=== PATIENT | male | born 1990 | race Caucasian/White ===

== ENCOUNTER 2022-09-01 19:21 | Inpatient (IN) ==
[2022-09-01] MEDS ORDERED: SODIUM CHLORIDE 0.9% 1000ML 1,000 ML IV STA (19:36)
[2022-09-01] MEDS ORDERED: PIPERACILLIN/TAZOBACTAM 4.5 GM/120 ML BAG IV STA (19:36)
[2022-09-01] MEDS ORDERED: ALBUT/IPRATROP 3MG/0.5MG NEB 3 ML VIAL NEB STA (19:39)
[2022-09-01 19:57] LABS: iSTAT Ionized Calcium 1.12 mmol/l (1.12-1.32)
[2022-09-01 20:10] LABS: Basophils # (auto) 0.08 K/uL (0-0.2); Basophils % (auto) 0.6 %; Eosinophils # (auto) 1.36 K/uL (0-0.50); Hematocrit (blood only) 44.6 % (42.0-52.0); Hemoglobin 15.4 g/dl (14.0-18.0); Immature Granulocytes # (auto) 0.04 K/uL (0.01-0.20); Immature Granulocytes % (auto) 0.3 %; Lymphocytes # (auto) 1.71 K/uL (1.2-3.4); Lymphocytes % (auto) 13.8 %; Mean Corpuscular Hemoglobin 31.1 pg (25.0-34.0); Mean Corpuscular Hgb Conc 34.5 g/dL (32.0-36.0); Mean Corpuscular Volume 90.1 fL (80.0-100.0); Monocytes # (auto) 0.83 K/uL (0.11-0.59); Monocytes % (auto) 6.7 %; Neutrophils # (auto) 8.36 K/uL (1.40-6.50); Neutrophils % (auto) 67.6 %; Platelet Count 228 K/uL (130-400); RDW Coefficient of Variation 13.2 % (11.5-14.5); Red Blood Count 4.95 M/uL (4.70-6.10); White Blood Count 12.38 K/ul (4.8-10.8)
--- NOTE | 2022-09-01 20:10 | Emergency Department Note ---
Impression & Plan Pneumonitis, HIV (human immunodeficiency virus infection), Hypoxia ED Provider Note Provider: Armaan Castillo MD DATE OF SERVICE: 09/01/2022 CHIEF COMPLAINT: Shortness of breath, chest pain HISTORY OF PRESENT ILLNESS: Patient is a 32-year-old gentleman history of hepatitis C, HIV on therapy, and drug abuse presenting here today stating over the past couple of days he began fevers and worsening shortness of breath and chest pain. Denies recent illness or sick contacts. Denies significant abdominal pain. Reports has had some cough component. States in the past has had a bit of shortness of breath that improved with nebulizer before but does not formally carry a diagnosis of asthma. Denies recent travel or leg swelling. PAST MEDICAL HISTORY: As noted above MEDICATIONS: Reviewed home medications and states compliance with home HIV medicine SOCIAL HISTORY: Vapes and smokes tobacco/marijuana PHYSICAL EXAM: GENERAL: alert and oriented fatigued in appearance Head: normocephalic and atraumatic EYES: No injection, discharge or icterus. NECK: Trachea midline. Supple. ENT: Mucous membranes pink and moist. LUNGS: Airway patent. No retractions. Breath sounds scattered wheezes throughout, mild tachypnea HEART: Regular rate and rhythm. No chest wall tenderness ABDOMEN: Soft and non-tender, without guarding or rebound. SKIN: Acyanotic, warm, dry EXTREMITIES: Without tenderness with some small scattered abrasions on the lower extremities bilaterally. NEUROLOGICAL: No focal deficits. No aphasia. No facial droop or slurred speech. EK bpm normal sinus rhythm. No PVC or PAC. No acute ST segment elevation or depression with a QTc of 415. CONTINUOUS CARDIAC MONITORING: was ordered and showed a heart rate of bpm in 1 view chest x-ray per my review evidence of left-sided to right upper multifocal airspace opacities concerning for possible pneumonia Patient's laboratory studies and imaging reviewed. Differential includes Reactive airway disease, pneumonia, pneumothorax, COPD, CHF, infections, cardiac ischemia, pulmonary embolism, musculoskeletal, gastroi ntestinal, as well as other pathologies. IMPRESSION/MEDICAL DECISION MAKING: Patient febrile and hypoxic on arrival immediately brought to room. Placed on oxygen supplementation. Does vape. Somewhat wheezy on exam. Chest X obtained concern for increased multifocal airspace opacities. No significant leg swelling. Does have a significant history of drug abuse per record as well as HIV but is on therapy and states his last counts to his knowledge were normal. Cultures lactate and respiratory panel sent. Given a DuoNeb here and empirically covered with Zosyn as well as azithromycin. Given some IV fluid resuscitation with lower suspicion for heart failure. Leukocytosis here at 12.3. Lactate not elevated. Doubt septic shock. Is requiring significant oxygen supplementation. We will complete a CT of the chest to exclude PE and further evaluate the lung findings on the x-ray. Given azithromycin for full Coverage. Given Tylenol for fever here. Still feeling quite short of breath and fatigued on exam. Procalcitonin not significantly elevated negative RVP. Troponin normal. No significant renal dysfunction noted. CT scan reviewed myself with evidence of large PE with patchy opacities throughout predominantly the upper lungs. Do not have any recorded viral load or CD4 counts here. We will give a dose of Bactrim at this time for any PCP component. Question how much of this may be infectious related versus possibly relating to his vaping and more of a diffuse lung injury. Will require admission given his hypoxia. Discussed with the hospitalist the case and his need for further care here. DIAGNOSIS: Hypoxic respiratory failure, pneumonitis, HIV, fever DISPOSITION: Hospitalist will evaluate Patient was agreeable with this plan. Critical Care I have personally spent 33 minutes of critical care time in the direct management of this patient. This includes bedside care, interpretation of diagnostic studies, and testing, discussion with consultants, patient, and other required patient management activities. These 33 minutes is in excess of all separately billable procedures. Past Med/Surg History Medical History Drug abuse and dependence Surgical History History of orthopedic surgery Social History Smoking Status: Current every day smoker Tobacco Type: E-cigarettes / Vaping Feels Safe at Home: Yes Allergies Allergies Allergy/AdvReac Type Severity Reaction Status Date / Time No Known Allergies Allergy Verified 09/01/22 20:39 Home Meds Home Medications Medication Instructions Recorded Confirmed buprenorphine 8 mg-naloxone 2 mg 1 film sublingual BID 07/17/22 09/01/22 sublingual film naloxone 4 mg/actuation nasal spray 0 spray intranasal DIRECTED PRN 07/17/22 09/01/22 OVERSEDATION Previous Rx's Medication Instructions Recorded bictegravir 50 mg-emtricitabine 1 tab PO DAILY #30 tabs 08/01/22 200 mg-tenofovir alafenam 25 mg tablet (Biktarvy) gabapentin 600 mg tablet 1,200 mg PO BID #120 tabs 08/01/22 Results & Data (ED) Vital Signs Vital Signs - 24 hr 09/01/22 19:26 09/01/22 19:42 09/01/22 19:34 Temperature 37.8 C H Temperature Source Temporal Artery Scan Pulse Rate 94 H 82 87 Pulse Rate from SpO2 Sensor 86 Respiratory Rate 22 Respiratory Effort / Characteristics Non-Labored Spontaneous Respiratory Depth Normal Respiratory Pattern Blood Pressure 112/70 Blood Pressure Mean 84 Blood Pressure Position Sitting Pulse Oximetry 82 L 88 L Oxygen Delivery Method Room Air Oxygen Flow Rate Sepsis Recent Fever Within 48 Hours No Sepsis New/Unexplained Change in Mental Status N/A Sepsis Action Taken by Nursing No Action Required Oxygen Flow Rate - Titration Pulse Oximetry Post Tiitration 09/01/22 19:35 09/01/22 19:35 09/01/22 19:40 Temperature Temperature Source Pulse Rate Pulse Rate from SpO2 Sensor 82 80 Respiratory Rate Respiratory Effort / Characteristics Respiratory Depth Respiratory Pattern Blood Pressure 123/78 Blood Pressure Mean 94 Blood Pressure Position Pulse Oximetry 89 L 89 L Oxygen Delivery Method Oxygen Flow Rate Sepsis Recent Fever Within 48 Hours Sepsis New/Unexplained Change in Mental Status Sepsis Action Taken by Nursing Oxygen Flow Rate - Titration Pulse Oximetry Post Tiitration 09/01/22 19:50 09/01/22 19:50 09/01/22 20:00 Temperature Temperature Source Pulse Rate 82 Pulse Rate from SpO2 Sensor 81 Respiratory Rate 29 H Respiratory Effort / Characteristics Respiratory Depth Respiratory Pattern Blood Pressure 110/74 121/76 Blood Pressure Mean 92 99 Blood Pressure Position Pulse Oximetry 94 Oxygen Delivery Method Oxygen Flow Rate Sepsis Recent Fever Within 48 Hours Sepsis New/Unexplained Change in Mental Status Sepsis Action Taken by Nursing Oxygen Flow Rate - Titration Pulse Oximetry Post Tiitration 09/01/22 20:00 09/01/22 20:10 09/01/22 20:20 Temperature Temperature Source Pulse Rate 89 102 H 87 Pulse Rate from SpO2 Sensor 89 101 H 88 Respiratory Rate 24 24 27 H Respiratory Effort / Characteristics Respiratory Depth Respiratory Pattern Blood Pressure Blood Pressure Mean Blood Pressure Position Pulse Oximetry 97 94 98 Oxygen Delivery Method Oxygen Flow Rate Sepsis Recent Fever Within 48 Hours Sepsis New/Unexplained Change in Mental Status Sepsis Action Taken by Nursing Oxygen Flow Rate - Titration Pulse Oximetry Post Tiitration 09/01/22 20:30 09/01/22 20:30 09/01/22 21:05 Temperature Temperature Source Pulse Rate 92 H Pulse Rate from SpO2 Sensor 92 H Respiratory Rate 25 H Respiratory Effort / Characteristics Moaning Respiratory Depth Respiratory Pattern Tachypnea Blood Pressure 111/76 Blood Pressure Mean 94 Blood Pressure Position Pulse Oximetry 89 L Oxygen Delivery Method Nasal Cannula Oxygen Flow Rate 6 Sepsis Recent Fever Within 48 Hours Sepsis New/Unexplained Change in Mental Status Sepsis Action Taken by Nursing Oxygen Flow Rate - Titration Pulse Oximetry Post Tiitration 09/01/22 21:05 09/01/22 21:20 09/01/22 21:01 Temperature Temperature Source Pulse Rate Pulse Rate from SpO2 Sensor 84 Respiratory Rate Respiratory Effort / Characteristics Respiratory Depth Respiratory Pattern Blood Pressure Blood Pressure Mean Blood Pressure Position Pulse Oximetry 85 L 88 L 89 L Oxygen Delivery Method Room Air Nasal Cannula Oxygen Flow Rate 0 6 Sepsis Recent Fever Within 48 Hours Sepsis New/Unexplained Change in Mental Status Sepsis Action Taken by Nursing Oxygen Flow Rate - Titration 6 10 Pulse Oximetry Post Tiitration 93 94 09/01/22 21:10 09/01/22 21:20 09/01/22 21:30 Temperature Temperature Source Pulse Rate 82 93 H 84 Pulse Rate from SpO2 Sensor 82 91 H 83 Respiratory Rate 25 H Respiratory Effort / Characteristics Respiratory Depth Respiratory Pattern Blood Pressure Blood Pressure Mean Blood Pressure Position Pulse Oximetry 89 L 89 L 91 Oxygen Delivery Method Oxygen Flow Rate Sepsis Recent Fever Within 48 Hours Sepsis New/Unexplained Change in Mental Status Sepsis Action Taken by Nursing Oxygen Flow Rate - Titration Pulse Oximetry Post Tiitration 09/01/22 21:40 09/01/22 21:50 09/01/22 22:00 Temperature Temperature Source Pulse Rate 80 91 H 96 H Pulse Rate from SpO2 Sensor 81 95 H Respiratory Rate 33 H 26 H Respiratory Effort / Characteristics Respiratory Depth Respiratory Pattern Blood Pressure Blood Pressure Mean Blood Pressure Position Pulse Oximetry 90 96 Oxygen Delivery Method Oxygen Flow Rate Sepsis Recent Fever Within 48 Hours Sepsis New/Unexplained Change in Mental Status Sepsis Action Taken by Nursing Oxygen Flow Rate - Titration Pulse Oximetry Post Tiitration 09/01/22 22:10 09/01/22 22:20 09/01/22 22:30 Temperature Temperature Source Pulse Rate 75 75 78 Pulse Rate from SpO2 Sensor 76 Respiratory Rate 25 H 26 H 18 Respiratory Effort / Characteristics Respiratory Depth Respiratory Pattern Blood Pressure Blood Pressure Mean Blood Pressure Position Pulse Oximetry 93 Oxygen Delivery Method Oxygen Flow Rate Sepsis Recent Fever Within 48 Hours Sepsis New/Unexplained Change in Mental Status Sepsis Action Taken by Nursing Oxygen Flow Rate - Titration Pulse Oximetry Post Tiitration 09/01/22 22:40 09/01/22 22:50 09/01/22 23:00 Temperature Temperature Source Pulse Rate 80 76 77 Pulse Rate from SpO2 Sensor 78 Respiratory Rate 18 23 26 H Respiratory Effort / Characteristics Respiratory Depth Respiratory Pattern Blood Pressure Blood Pressure Mean Blood Pressure Position Pulse Oximetry 90 Oxygen Delivery Method Oxygen Flow Rate Sepsis Recent Fever Within 48 Hours Sepsis New/Unexplained Change in Mental Status Sepsis Action Taken by Nursing Oxygen Flow Rate - Titration Pulse Oximetry Post Tiitration 09/01/22 23:10 09/01/22 23:20 09/01/22 23:30 Temperature Temperature Source Pulse Rate 77 74 77 Pulse Rate from SpO2 Sensor 77 75 77 Respiratory Rate 29 H 24 26 H Respiratory Effort / Characteristics Respiratory Depth Respiratory Pattern Blood Pressure Blood Pressure Mean Blood Pressure Position Pulse Oximetry 90 93 91 Oxygen Delivery Method Oxygen Flow Rate Sepsis Recent Fever Within 48 Hours Sepsis New/Unexplained Change in Mental Status Sepsis Action Taken by Nursing Oxygen Flow Rate - Titration Pulse Oximetry Post Tiitration 09/01/22 23:40 09/01/22 23:50 Temperature Temperature Source Pulse Rate 81 72 Pulse Rate from SpO2 Sensor 83 72 Respiratory Rate 21 25 H Respiratory Effort / Characteristics Respiratory Depth Respiratory Pattern Blood Pressure 118/74 Blood Pressure Mean 88 Blood Pressure Position Pulse Oximetry 91 95 Oxygen Delivery Method Oxymask Oxygen Flow Rate 6 Sepsis Recent Fever Within 48 Hours Sepsis New/Unexplained Change in Mental Status Sepsis Action Taken by Nursing Oxygen Flow Rate - Titration Pulse Oximetry Post Tiitration Laboratory Data 09/01/22 19:35 09/01/22 19:35 Lab Results 09/01/22 09/01/22 09/01/22 Range/Units 19:35 19:35 19:35 WBC 12.38 H (4.8-10.8) K/ul RBC 4.95 (4.70-6.10) M/uL Hgb 15.4 (14.0-18.0) g/dl POC Hgb (14.0-18.0) g/dl Hct 44.6 (42.0-52.0) % POC Hct (42-52) % MCV 90.1 (80.0-100.0) fL MCH 31.1 (25.0-34.0) pg MCHC 34.5 (32.0-36.0) g/dL RDW Std Deviation 43.0 (36.4-46.3) fL RDW Coeff of Estelle 13.2 (11.5-14.5) % Plt Count 228 (130-400) K/uL MPV 10.0 (9.4-12.4) fL Immature Gran % (Auto) 0.3 % Neut % (Auto) 67.6 % Lymph % (Auto) 13.8 % [place] % (Auto) 6.7 % Eos % (Auto) 11.0 % Baso % (Auto) 0.6 % Neut # (Auto) 8.36 H (1.40-6.50) K/uL Lymph # (Auto) 1.71 (1.2-3.4) K/uL [place] # (Auto) 0.83 H (0.11-0.59) K/uL Eos # (Auto) 1.36 H (0-0.50) K/uL Baso # (Auto) 0.08 (0-0.2) K/uL Immature Gran # (Auto) 0.04 (0.01-0.20) K/uL PT 11.3 (9.0-12.0) Seconds INR 1.0 (0.9-1.1) POC Sodium (135-144) mmol/L Sodium 134 L (136-145) mmol/L POC Potassium (3.3-5.0) mmol/L Potassium 4.0 (3.5-5.1) mmol/L POC Chloride (101-112) mmol/L Chloride 100 (98-107) mmol/L Carbon Dioxide 26 (21-32) mmol/L POC Total CO2 (24-31) mmol/L Anion Gap 8 (3-11) POC Anion Gap (16-25) mmol/L POC BUN (7-18) mg/dl BUN 10 (6-23) mg/dl Creatinine 1.02 (0.6-1.4) mg/dl POC Creatinine (0.6-1.3) mg/dl Est Cr Clr Drug Dosing 95.6 ml/min Est GFR ( Amer) 113.8 ml/min Est GFR (Non-Af Amer) 98.2 ml/min BUN/Creatinine Ratio 9.8 L (10-20) Glucose 95 (70-99(Fasting)) mg/dl POC Glucose (other) (70-99) mg/dl Lactate (0.4-2.0) mmol/L Calcium 9.6 (8.6-10.3) mg/dl POC Ioniz Calcium Jevon (1.12-1.32) mmol/l Total Bilirubin 1.2 H (0.2-1.0) mg/dl AST 27 (13-39) U/L ALT 9 (7-52) U/L Alkaline Phosphatase 120 H (34-104) U/L Lactate Dehydrogenase (86-244) U/L Troponin I High Sens 3.9 (0-20) pg/ml Total Protein 8.1 (6.0-8.3) gm/dl Albumin 4.6 (3.4-5.0) gm/dl Globulin 3.5 (2.5-4.0) gm/dl Albumin/Globulin Ratio 1.3 (0.9-2) Procalcitonin (0-0.5) ng/ml Adenovirus (PCR) (NotDetected) B. pertussis DNA (PCR) (NotDetected) B.parapertussis DNA PCR (NotDetected) C. pneumoniae DNA (PCR) (NotDetected) Coronavirus OC43 (PCR) (NotDetected) Coronavirus HKU1 (PCR) (NotDetected) Coronavirus 229E (PCR) (NotDetected) SARS-CoV-2 (PCR) (NotDetected) Coronavirus NL63 (PCR) (NotDetected) Human Metapneumovir PCR (NotDetected) Influenza Type A (PCR) (NotDetected) Influenza Type B (PCR) (NotDetected) M. pneumoniae (PCR) (NotDetected) Parainfluenza 1 (PCR) (NotDetected) Parainfluenza 2 (PCR) (NotDetected) Parainfluenza 3 (PCR) (NotDetected) Parainfluenza 4 (PCR) (NotDetected) RSV (PCR) (NotDetected) Entero/Rhino (PCR) (NotDetected) 09/01/22 09/01/22 09/01/22 Range/Units 19:35 19:36 19:40 WBC (4.8-10.8) K/ul RBC (4.70-6.10) M/uL Hgb (14.0-18.0) g/dl POC Hgb (14.0-18.0) g/dl Hct (42.0-52.0) % POC Hct (42-52) % MCV (80.0-100.0) fL MCH (25.0-34.0) pg MCHC (32.0-36.0) g/dL RDW Std Deviation (36.4-46.3) fL RDW Coeff of Estelle (11.5-14.5) % Plt Count (130-400) K/uL MPV (9.4-12.4) fL Immature Gran % (Auto) % Neut % (Auto) % Lymph % (Auto) % [place] % (Auto) % Eos % (Auto) % Baso % (Auto) % Neut # (Auto) (1.40-6.50) K/uL Lymph # (Auto) (1.2-3.4) K/uL [place] # (Auto) (0.11-0.59) K/uL Eos # (Auto) (0-0.50) K/uL Baso # (Auto) (0-0.2) K/uL Immature Gran # (Auto) (0.01-0.20) K/uL PT (9.0-12.0) Seconds INR (0.9-1.1) POC Sodium (135-144) mmol/L Sodium (136-145) mmol/L POC Potassium (3.3-5.0) mmol/L Potassium (3.5-5.1) mmol/L POC Chloride (101-112) mmol/L Chloride (98-107) mmol/L Carbon Dioxide (21-32) mmol/L POC Total CO2 (24-31) mmol/L Anion Gap (3-11) POC Anion Gap (16-25) mmol/L POC BUN (7-18) mg/dl BUN (6-23) mg/dl Creatinine (0.6-1.4) mg/dl POC Creatinine (0.6-1.3) mg/dl Est Cr Clr Drug Dosing ml/min Est GFR ( Amer) ml/min Est GFR (Non-Af Amer) ml/min BUN/Creatinine Ratio (10-20) Glucose (70-99(Fasting)) mg/dl POC Glucose (other) (70-99) mg/dl Lactate 1.4 (0.4-2.0) mmol/L Calcium (8.6-10.3) mg/dl POC Ioniz Calcium Jevon (1.12-1.32) mmol/l Total Bilirubin (0.2-1.0) mg/dl AST (13-39) U/L ALT (7-52) U/L Alkaline Phosphatase (34-104) U/L Lactate Dehydrogenase (86-244) U/L Troponin I High Sens (0-20) pg/ml Total Protein (6.0-8.3) gm/dl Albumin (3.4-5.0) gm/dl Globulin (2.5-4.0) gm/dl Albumin/Globulin Ratio (0.9-2) Procalcitonin < 0.05 (0-0.5) ng/ml Adenovirus (PCR) Not Detected (NotDetected) B. pertussis DNA (PCR) Not Detected (NotDetected) B.parapertussis DNA PCR Not Detected (NotDetected) C. pneumoniae DNA (PCR) Not Detected (NotDetected) Coronavirus OC43 (PCR) Not Detected (NotDetected) Coronavirus HKU1 (PCR) Not Detected (NotDetected) Coronavirus 229E (PCR) Not Detected (NotDetected) SARS-CoV-2 (PCR) Not Detected (NotDetected) Coronavirus NL63 (PCR) Not Detected (NotDetected) Human Metapneumovir PCR Not Detected (NotDetected) Influenza Type A (PCR) Not Detected (NotDetected) Influenza Type B (PCR) Not Detected (NotDetected) M. pneumoniae (PCR) Not Detected (NotDetected) Parainfluenza 1 (PCR) Not Detected (NotDetected) Parainfluenza 2 (PCR) Not Detected (NotDetected) Parainfluenza 3 (PCR) Not Detected (NotDetected) Parainfluenza 4 (PCR) Not Detected (NotDetected) RSV (PCR) Not Detected (NotDetected) Entero/Rhino (PCR) Not Detected (NotDetected) 09/01/22 09/01/22 Range/Units 19:45 23:00 WBC (4.8-10.8) K/ul RBC (4.70-6.10) M/uL Hgb (14.0-18.0) g/dl POC Hgb 16.0 (14.0-18.0) g/dl Hct (42.0-52.0) % POC Hct 47 (42-52) % MCV (80.0-100.0) fL MCH (25.0-34.0) pg MCHC (32.0-36.0) g/dL RDW Std Deviation (36.4-46.3) fL RDW Coeff of Estelle (11.5-14.5) % Plt Count (130-400) K/uL MPV (9.4-12.4) fL Immature Gran % (Auto) % Neut % (Auto) % Lymph % (Auto) % [place] % (Auto) % Eos % (Auto) % Baso % (Auto) % Neut # (Auto) (1.40-6.50) K/uL Lymph # (Auto) (1.2-3.4) K/uL [place] # (Auto) (0.11-0.59) K/uL Eos # (Auto) (0-0.50) K/uL Baso # (Auto) (0-0.2) K/uL Immature Gran # (Auto) (0.01-0.20) K/uL PT (9.0-12.0) Seconds INR (0.9-1.1) POC Sodium 136 (135-144) mmol/L Sodium (136-145) mmol/L POC Potassium 4.0 (3.3-5.0) mmol/L Potassium (3.5-5.1) mmol/L POC Chloride 98 L (101-112) mmol/L Chloride (98-107) mmol/L Carbon Dioxide (21-32) mmol/L POC Total CO2 23 L (24-31) mmol/L Anion Gap (3-11) POC Anion Gap 20.0 (16-25) mmol/L POC BUN 9 (7-18) mg/dl BUN (6-23) mg/dl Creatinine (0.6-1.4) mg/dl POC Creatinine 1.0 (0.6-1.3) mg/dl Est Cr Clr Drug Dosing ml/min Est GFR ( Amer) ml/min Est GFR (Non-Af Amer) ml/min BUN/Creatinine Ratio (10-20) Glucose (70-99(Fasting)) mg/dl POC Glucose (other) 101 H (70-99) mg/dl Lactate (0.4-2.0) mmol/L Calcium (8.6-10.3) mg/dl POC Ioniz Calcium Jevon 1.12 (1.12-1.32) mmol/l Total Bilirubin (0.2-1.0) mg/dl AST (13-39) U/L ALT (7-52) U/L Alkaline Phosphatase (34-104) U/L Lactate Dehydrogenase 350 H (86-244) U/L Troponin I High Sens (0-20) pg/ml Total Protein (6.0-8.3) gm/dl Albumin (3.4-5.0) gm/dl Globulin (2.5-4.0) gm/dl Albumin/Globulin Ratio (0.9-2) Procalcitonin (0-0.5) ng/ml Adenovirus (PCR) (NotDetected) B. pertussis DNA (PCR) (NotDetected) B.parapertussis DNA PCR (NotDetected) C. pneumoniae DNA (PCR) (NotDetected) Coronavirus OC43 (PCR) (NotDetected) Coronavirus HKU1 (PCR) (NotDetected) Coronavirus 229E (PCR) (NotDetected) SARS-CoV-2 (PCR) (NotDetected) Coronavirus NL63 (PCR) (NotDetected) Human Metapneumovir PCR (NotDetected) Influenza Type A (PCR) (NotDetected) Influenza Type B (PCR) (NotDetected) M. pneumoniae (PCR) (NotDetected) Parainfluenza 1 (PCR) (NotDetected) Parainfluenza 2 (PCR) (NotDetected) Parainfluenza 3 (PCR) (NotDetected) Parainfluenza 4 (PCR) (NotDetected) RSV (PCR) (NotDetected) Entero/Rhino (PCR) (NotDetected) Administered Medications Discontinued Medications Acetaminophen (Acetaminophen 325 Mg Tab) 650 mg PO NOW STA Stop: 09/01/22 20:24 Last Admin: 09/01/22 20:34 Dose: 650 mg Documented By: OSCAR Albuterol (Albut/Ipratrop 3mg/0.5mg Neb 3 Ml Vial) 3 ml NEB NOW STA; Protocol Stop: 09/01/22 19:40 Last Admin: 09/01/22 19:47 Dose: 3 ml Documented By: OSCAR Azithromycin (Azithromycin 250 Mg Tab) 500 mg PO NOW ONE Stop: 09/01/22 20:19 Last Admin: 09/01/22 20:34 Dose: 500 mg Documented By: OSCAR Buprenorphine/Naloxone (Buprenorphine/Naloxone 8/2 Mg Tab) 1 tab SL ONCE ONE Stop: 09/01/22 23:03 Last Admin: 09/02/22 00:14 Dose: 1 tab Documented By: BERTHA Piperacillin Sod/Tazobactam Sod (Zosyn) 4.5 gm in 120 mls @ 240 mls/hr IV NOW STA Stop: 09/01/22 20:05 Last Infusion: 09/01/22 20:36 Dose: 0 mls/hr Documented By: Admin: 09/01/22 19:46 Dose: 240 mls/hr Documented By: OSCAR Sodium Chloride (Nss 1000ml) 1,000 mls @ 999 mls/hr IV .Q1H1M STA Stop: 09/01/22 20:36 Last Infusion: 09/01/22 20:36 Dose: 0 mls/hr Documented By: Admin: 09/01/22 19:47 Dose: 999 mls/hr Documented By: OSCAR Ioversol (Optiray 320 500ml) 103 ml IV ONCE ONE Stop: 09/01/22 20:49 Last Admin: 09/01/22 20:48 Dose: 103 ml Documented By: PEGGY Nicotine (Nicotine 21 Mg/24 Hr Tdsy) 21 mg TD ONCE ONE Stop: 09/01/22 21:30 Last Admin: 09/01/22 21:55 Dose: 21 mg Documented By: OSCAR Trimethoprim/Sulfamethoxazole (Sulfamethoxazole/Trimethoprim Ds 800/160mg Tab) 1 tab PO NOW ONE Stop: 09/01/22 21:17 Last Admin: 09/01/22 21:55 Dose: 1 tab Documented By: KT Imaging Data Radiologist's Impression: Chest CTA 09/01/22 20:07 Exam(s): CTA CHEST IV Amt: 103 ML OPTIRAY 230 EXAM: CT Angiography Chest With Intravenous Contrast CLINICAL HISTORY: Reason for exam: PE, hypoxia. TECHNIQUE: Axial computed tomographic angiography images of the chest with intravenous contrast. CTDI is 16.16 mGy and DLP is 574.19 mGy-cm. Automated exposure control was utilized for the study. A dose lowering technique was utilized adhering to the principles of ALARA. MIP reconstructed images were created and reviewed. COMPARISON: No relevant prior studies available. FINDINGS: Pulmonary arteries: Unremarkable. No CT evidence of pulmonary embolism. Aorta: No acute findings. No thoracic aortic aneurysm. Lungs: Patchy central groundglass opacities involving bilateral lungs with an upper lung predominance at. These findings are consistent with a nonspecific pneumonitis. Viral pneumonia such as Covid would be most likely. Pleural space: Unremarkable. No significant effusion. No pneumothorax. Heart: Unremarkable. No cardiomegaly. No significant pericardial effusion. No evidence of RV dysfunction. Mediastinum: Mild mediastinal lymphadenopathy present as follows: Right hilar-1.1 cm and subcarinal-0.9 cm. There are favored to be reactive secondary to the underlying pulmonary abnormality. Bones/joints: No acute fracture. No dislocation. Soft tissues: Unremarkable. Lymph nodes: Unremarkable. No enlarged lymph nodes. IMPRESSION: 1. No CT evidence of pulmonary embolism. 2. Patchy central groundglass opacities involving bilateral lungs with an upper lung predominance at. These findings are consistent with a nonspecific pneumonitis. Viral pneumonia such as Covid would be most likely. Electronically signed by: Tank Liu M.D. 09/01/22 21:43 PM Discharge Plan Visit Data Chief Complaint: Shortness of Breath/Dyspnea Stated Complaint: SOB, CHEST PAIN ED Provider: Armaan Castillo Discharge Problem: Pneumonitis, HIV (human immunodeficiency virus infection), Hypoxia Patient Disposition: Being Evaluated by Hospitalist Discharge Instructions Interventions: ED Discharge Assessment Last Done: 09/02/22 00:04 Forms Stand Alone Forms: [facility] Prescriptions Prescriptions: No Action gabapentin 600 mg tablet 1,200 mg PO BID Qty: 120 5RF Biktarvy 50-200-25 mg tablet 1 tab PO DAILY Qty: 30 11RF buprenorphine-naloxone 8-2 mg film 1 film sublingual BID naloxone 4 mg/actuation spray,non-aerosol 0 spray INTRANASAL DIRECTED PRN (Reason: OVERSEDATION) Referrals Referrals: Wilver Miller DO [Primary Care Provider] -
[2022-09-01] MEDS ORDERED: AZITHROMYCIN 250 MG TAB PO ONE (20:18)
[2022-09-01 20:22] LABS: Albumin Globulin Ratio 1.3 (0.9-2); Albumin Level 4.6 gm/dl (3.4-5.0); BUN Creatinine Ratio 9.8 (10-20); Bilirubin,Total 1.2 mg/dl (0.2-1.0); Calcium 9.6 mg/dl (8.6-10.3); Creatinine Clr Calc Pharmacy 95.6 ml/min; Est GFR (African American) 113.8 ml/min; Est GFR (Non-African American) 98.2 ml/min; Globulin 3.5 gm/dl (2.5-4.0); Total Protein 8.1 gm/dl (6.0-8.3)
[2022-09-01] MEDS ORDERED: ACETAMINOPHEN 325 MG TAB PO STA (20:23)
[2022-09-01 20:29] LABS: Troponin I High Sensitivity 3.9 pg/ml (0-20)
[2022-09-01 20:35] LABS: Prothrombin Time 11.3 Seconds (9.0-12.0)
[2022-09-01] MEDS ORDERED: OPTIRAY 320 500ml IV ONE (20:48)
[2022-09-01 20:51] LABS: Adenovirus PCR Not Detected (NotDetected); Bordetella parapertussis PCR Not Detected (NotDetected); Bordetella pertussis PCR Not Detected (NotDetected); Chlamydia pneumoniae PCR Not Detected (NotDetected); Coronavirus 229E PCR Not Detected (NotDetected); Coronavirus CoV-2 (COVID19)PCR Not Detected (NotDetected); Coronavirus HKU1 PCR Not Detected (NotDetected); Coronavirus NL63 PCR Not Detected (NotDetected); Coronavirus OC43PCR Not Detected (NotDetected); Human Metapneumovirus PCR Not Detected (NotDetected); Influenza A PCR Not Detected (NotDetected); Influenza B PCR Not Detected (NotDetected); Mycoplasma pneumoniae PCR Not Detected (NotDetected); Parainfluenza Virus 1 PCR Not Detected (NotDetected); Parainfluenza Virus 2 PCR Not Detected (NotDetected); Parainfluenza Virus 3 PCR Not Detected (NotDetected); Parainfluenza Virus 4 PCR Not Detected (NotDetected); Respiratory Syncytial VirusPCR Not Detected (NotDetected); Rhinovirus/Enterovirus PCR Not Detected (NotDetected)
[2022-09-01] MEDS ORDERED: SULFAMETHOXAZOLE/TRIMETHOPRIM DS 800/160MG TAB PO ONE (21:16)
[2022-09-01] MEDS ORDERED: NICOTINE 21 MG/24 HR TDSY TD ONE (21:29)
--- NOTE | 2022-09-01 21:44 | CT Scan Report ---
Exam(s): CTA CHEST IV Amt: 103 ML OPTIRAY 230 EXAM: CT Angiography Chest With Intravenous Contrast CLINICAL HISTORY: Reason for exam: PE, hypoxia. TECHNIQUE: Axial computed tomographic angiography images of the chest with intravenous contrast. CTDI is 16.16 mGy and DLP is 574.19 mGy-cm. Automated exposure control was utilized for the study. A dose lowering technique was utilized adhering to the principles of ALARA. MIP reconstructed images were created and reviewed. COMPARISON: No relevant prior studies available. FINDINGS: Pulmonary arteries: Unremarkable. No CT evidence of pulmonary embolism. Aorta: No acute findings. No thoracic aortic aneurysm. Lungs: Patchy central groundglass opacities involving bilateral lungs with an upper lung predominance at. These findings are consistent with a nonspecific pneumonitis. Viral pneumonia such as Covid would be most likely. Pleural space: Unremarkable. No significant effusion. No pneumothorax. Heart: Unremarkable. No cardiomegaly. No significant pericardial effusion. No evidence of RV dysfunction. Mediastinum: Mild mediastinal lymphadenopathy present as follows: Right hilar-1.1 cm and subcarinal-0.9 cm. There are favored to be reactive secondary to the underlying pulmonary abnormality. Bones/joints: No acute fracture. No dislocation. Soft tissues: Unremarkable. Lymph nodes: Unremarkable. No enlarged lymph nodes. IMPRESSION: 1. No CT evidence of pulmonary embolism. 2. Patchy central groundglass opacities involving bilateral lungs with an upper lung predominance at. These findings are consistent with a nonspecific pneumonitis. Viral pneumonia such as Covid would be most likely. Electronically signed by: Tank Liu M.D. 09/01/22 21:43 PM
[2022-09-01] MEDS ORDERED: BUPRENORPHINE/NALOXONE 8/2 MG TAB SL ONE (23:02)
--- NOTE | 2022-09-02 00:03 | History & Physical Report ---
Date of Service September 01, 2022 Assessment & Plan (1) Hypoxia: Plan: Patient is a 32-year-old male with past medical history of HIV, hepatitis C, drug abuse and dependence, history of heroin abuse, and history of cocaine use who presented to the hospital for concern of dyspnea. Imaging consistent with pneumonitis. However, respiratory viral panel has been negative. Pt being admitted for O2 supplementation and workup. -Admit to [facility] with telemetry as well as isolation precautions due to HIV status and undiagnosed infection at this time. -Broad-spectrum coverage with Zosyn, azithromycin, and PJP coverage with Bactrim. -Last CD4 value unknown -Supplemental oxygen as needed. -Rangel TB testing to be ordered -Mucinex twice daily -Incentive spirometry, flutter valve -DuoNeb every 4 hours as needed -Encourage smoking and vaping cessation -Nicotine patch applied -We will order infectious disease consult at this time due to 24 to 48-hour wait time. Can be canceled if underlying cause is found. Appreciate recommendations (2) Pneumonitis: Plan: -Noted on CTA of chest -Antibiotic coverage as above. -If symptoms are progressing and antibiotics are not providing relief, consider pulmonology consult. -CPAP/BiPAP as needed (3) HIV (human immunodeficiency virus infection): Plan: -Unknown previous CD4 count -CD4 level ordered -Antibiotic coverage as above -Rangel testing for TB as above -Continue home Biktarvy. Pt has to bring this from home as it is non-formulary (4) Drug abuse and dependence: Plan: -Patient sees [facility] for Suboxone -Patient has appointment tomorrow for refills, however, very unlikely to make this appointment -Suboxone twice daily ordered while inpatient. (5) History of heroin abuse: Plan: -See above (6) HCV (hepatitis C virus): Plan: -noted. CMP ordered Plan Diet: Regular DVT prophylaxis: Lovenox Disposition: Admit to [facility] with telemetry, isolation precautions until work- up is complete CODE STATUS: Full code History of Present Illness Chief Complaint: Dyspnea Primary Care Provider: Wilver Miller, Patient is a 32-year-old male with past medical history of HIV, hepatitis C, drug abuse and dependence, history of heroin abuse, and history of cocaine use who presented to the hospital for concern of dyspnea. For the past 3 days, patient has had progressively worsening shortness of breath. Reports cough as well but nonproductive. Patient is on Suboxone therapy twice daily with his last dose being on the morning of 09/01/2022. Patient is also HIV positive and is on Biktarvy 1 tablet daily. Reports that his latest CD4 numbers are "normal". He is unable to tell me what the actual number is. Denies any sick contacts. No nausea or vomiting. No new rashes. Feeling some fatigue and general unwellness. Patient does smoke currently and vapes. Reports that vaping cartridges are from the [place]. No other complaints at this time. ED course: Patient was evaluated by ED provider. Labs are significant for an elevated white count at 12.38 with a neutrophilic predominance, sodium of 134, total bilirubin at 1.2, alkaline phosphatase at 120, lactate dehydrogenase at 350, procalcitonin negative. Viral PCR panel negative for all viruses on panel. COVID-negative. Diagnostic imaging included an x-ray and chest CTA both of which are indicative of pneumonitis suspicious for viral etiology. Due to patient's HIV status, patient was started on Zosyn, azithromycin, and Bactrim. The hospitalist service was then consulted for admission and treatment. Patient is on supplemental oxygen with nasal cannula at 6 L at the time of consultation. Saturating at 91%. Allergies Allergy/AdvReac Type Severity Reaction Status Date / Time No Known Allergies Allergy Verified 09/01/22 20:39 Home Medications Medication Instructions Recorded Confirmed Type buprenorphine 8 mg-naloxone 2 mg 1 film sublingual BID 07/17/22 09/01/22 History sublingual film naloxone 4 mg/actuation nasal spray 0 spray intranasal DIRECTED PRN 07/17/22 09/01/22 History OVERSEDATION bictegravir 50 mg-emtricitabine 1 tab PO DAILY #30 tabs 08/01/22 09/01/22 Rx 200 mg-tenofovir alafenam 25 mg tablet (Biktarvy) gabapentin 600 mg tablet 1,200 mg PO BID #120 tabs 08/01/22 09/01/22 Rx Past Med/Surg History Medical History (Updated 09/02/22 @ 13:51 by Rancho Shine MD) Acute respiratory failure with hypoxia Anxiety with agitation Drug abuse and dependence 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) Wheezing Surgical History History of orthopedic surgery Social History Smoking Status: Current every day smoker Tobacco Type: E-cigarettes / Vaping Cigarettes Per Day: x1 pack; Second Hand Exposure: Yes; Do You Dip or Chew Tobacco: No; Tobacco Cessation Education Requested by Patient: No Hx Alcohol Use: Yes Alcohol type: beer Hx Substance Use: Yes Last Used Substance: Unknown Preferred Language: Comoran Communication Ability: Effective Channel Worker Required: No Beliefs That Will Affect Care: None Current Living Situation: Family Other Information That Helps Us Care for You: No Feels Safe at Home: Yes Safety Concerns: Feels Safe At This Time Review of Systems Review of Systems: All systems reviewed & are unremarkable except as noted in HPI & below Physical Exam Constitutional: WD/WN, vitals as above Eyes: + anicteric sclerae and PERRL ENMT: external ear and nose normal, oropharynx normal Neck: trachea midline, no thyromegaly Respiratory: normal respiratory effort; no respiratory distress Auscultation: + wheezes and + bronchial breath sounds Cardiovascular: RRR, no murmur, no edema Chest (Breasts): normal inspection/palpation of breasts Gastrointestinal (Abdomen): normal bowel sounds, soft, nontender, no hepatosplenomegaly Musculoskeletal: Head/Neck/Chest: normocephalic and head atraumatic Skin: no rashes, warm and dry Neurologic: moves all extremities Psychiatric: A+Ox3, euthymic affect Results & Data Results & Data Vital Signs (Past 12 Hours) Vital Signs Temp Pulse Resp BP Pulse Ox O2 Del Method O2 Flow Rate 09/01/22 23:40 81 21 91 09/01/22 23:30 77 26 H 91 09/01/22 23:20 74 24 93 09/01/22 23:10 77 29 H 90 09/01/22 23:00 77 26 H 90 09/01/22 22:50 76 23 09/01/22 22:40 80 18 09/01/22 22:30 78 18 09/01/22 22:20 75 26 H 09/01/22 22:10 75 25 H 93 09/01/22 22:00 96 H 26 H 96 09/01/22 21:50 91 H 33 H 09/01/22 21:40 80 90 09/01/22 21:30 84 91 09/01/22 21:20 93 H 89 L 09/01/22 21:10 82 25 H 89 L 09/01/22 21:01 89 L 09/01/22 21:20 88 L Nasal Cannula 6 09/01/22 21:05 85 L Room Air 0 09/01/22 21:05 Nasal Cannula 6 09/01/22 20:30 92 H 25 H 89 L 09/01/22 20:30 111/76 09/01/22 20:20 87 27 H 98 09/01/22 20:10 102 H 24 94 09/01/22 20:00 89 24 97 09/01/22 20:00 121/76 09/01/22 19:50 82 29 H 94 09/01/22 19:50 110/74 09/01/22 19:40 89 L 09/01/22 19:35 123/78 09/01/22 19:35 89 L 09/01/22 19:34 87 88 L 09/01/22 19:42 82 09/01/22 19:26 37.8 C H 94 H 22 112/70 82 L Room Air Code Status & VTE Plan VTE Prophylaxis Plan VTE Prophylaxis will be ordered: Yes Supervising Physician Co-Signing Physician Notes Attending addendum: I have physically seen this patient, have supervised the medical residents activities, and agree with the H&P unless as otherwise noted. Assessment and Plan: Acute respiratory failure with hypoxia/bilateral upper lobe pneumonitis in HIV patient- Order CD4 count Placed on Zosyn, azithromycin and Bactrim IV Order testing for TB Respiratory isolation Duonebs every 4 hours while awake and every 2 hours when necessary. Guaifenesin extended release 12 mg p.o. twice daily Tobacco cessation counseling vaping cessation counseling Remaining treatment as results of testing returns Remaining orders and notations as noted
[2022-09-02] MEDS ORDERED: ACETAMINOPHEN 325 MG TAB PO PRN (00:41)
[2022-09-02] MEDS ORDERED: ONDANSETRON INJ 2 MG/ML 2 ML VIAL IV PRN (00:41)
[2022-09-02] MEDS ORDERED: SULFA IV SCH (01:00)
[2022-09-02] MEDS ORDERED: TRIMETH IV SCH (01:00)
[2022-09-02] MEDS ORDERED: DEXTROSE 5% IV SCH (01:00)
[2022-09-02] MEDS ORDERED: PNEUMOCOCCAL POLYSACCHARIDES 25 MCG/0.5 ML VIAL/SYR IM ONE (01:30)
[2022-09-02] MEDS: DEXTROSE 5% IV SCH ×4 (01:36→21:43)
[2022-09-02] MEDS: SULFA IV SCH ×4 (01:36→21:43)
[2022-09-02] MEDS: TRIMETH IV SCH ×4 (01:36→21:43)
[2022-09-02] MEDS: PIPERACILLIN/TAZOBACTAM 4.5 GM in DEXTROSE 5% 100 ML IV SCH ×3 (01:36→17:20)
[2022-09-02] MEDS: ALBUT/IPRATROP 3MG/0.5MG NEB 3 ML VIAL NEB PRN ×3 (05:48→10:02)
--- NOTE | 2022-09-02 07:53 | XRay Report ---
XR chest 1V portable HISTORY: 32 years-old Male Fever, hypoxia acute fever COMPARISON: CTA chest of same day TECHNIQUE: AP view of the chest FINDINGS: Cardiac silhouette is normal. No pneumothorax, pleural effusion or overt pulmonary edema. Patchy mult ifocal airspace opacities. Bones appear grossly intact. IMPRESSION: Multifocal multilobar pneumonia. Follow-up chest radiograph following treatment course re commended to document resolution. ACT 112: Negative or not required by law. The above report was generated using voice recognition software. It may contain grammatical, syntax o r spelling errors. Electronically signed by: Eduardo Meyers M.D. 09/02/2022 7:52 AM
[2022-09-02] MEDS: ENOXAPARIN INJ 40 MG/0.4 ML SYR SQ SCH (08:39)
[2022-09-02] MEDS: GABAPENTIN 600 MG TAB PO SCH ×2 (08:39→20:41)
[2022-09-02] MEDS: BUPRENORPHINE/NALOXONE 8/2 MG TAB SL SCH ×2 (08:39→20:39)
[2022-09-02] MEDS: guaiFENesin 600 MG TABCR PO SCH ×2 (08:40→20:40)
[2022-09-02 09:47] LABS: Hematocrit (blood only) 38.6 % (42.0-52.0); Hemoglobin 13.2 g/dl (14.0-18.0); Mean Corpuscular Hemoglobin 30.6 pg (25.0-34.0); Mean Corpuscular Hgb Conc 34.2 g/dL (32.0-36.0); Mean Corpuscular Volume 89.6 fL (80.0-100.0); Mean Platelet Volume 10.1 fL (9.4-12.4); Platelet Count 182 K/uL (130-400); RDW Standard Deviation 43.2 fL (36.4-46.3); Red Blood Count 4.31 M/uL (4.70-6.10); White Blood Count 9.84 K/ul (4.8-10.8)
[2022-09-02 10:05] LABS: Albumin Globulin Ratio 1.5 (0.9-2); Albumin Level 3.9 gm/dl (3.4-5.0); Bilirubin,Total 0.9 mg/dl (0.2-1.0); Calcium 8.7 mg/dl (8.6-10.3); Creatinine Clr Calc Pharmacy 108.3 ml/min; Est GFR (African American) 132.4 ml/min; Est GFR (Non-African American) 114.2 ml/min; Globulin 2.6 gm/dl (2.5-4.0); Potassium 3.8 mmol/L (3.5-5.1); Total Protein 6.5 gm/dl (6.0-8.3)
--- NOTE | 2022-09-02 10:17 | XRay Report ---
SINGLE VIEW CHEST CLINICAL HISTORY: Increasing dyspnea FINDINGS: An AP, portable, upright chest radiograph is compared to chest x-ray and chest CT dated velma ed 09/01/2022. The cardiomediastinal silhouette is unremarkable. Multifocal airspace consolidation is a gain seen throughout both lungs. This is unchanged to modestly worsened as compared to yesterday. No large pleural effusion or pneumothorax is identified. The bony thorax is grossly intact. IMPRESSION: 1. Multifocal airspace consolidation is again seen throughout both lungs. This is unchanged to modest ly worsened as compared to yesterday. The appearance is most typical for multiple pneumonia, potentia lly viral. Correlate clinically. 2. No pleural effusion is identified. ACT 112: Negative or not required by law. Electronically signed by: Duc Holden M.D. 09/02/2022 10:16 AM
[2022-09-02] MEDS ORDERED: LORazepam 1 MG TAB PO STA ×2 (11:21→13:40)
[2022-09-02] MEDS ORDERED: LORazepam 1 MG TAB ONE ×2 (11:24→13:44)
[2022-09-02] MEDS ORDERED: methylPREDNISolone 40 MG in SYRINGE 0 ML IV SCH (11:45)
--- NOTE | 2022-09-02 13:22 | Pulmonary Consultation ---
Date of Consultation September 02, 2022 Assessment & Plan (1) 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): (2) Anxiety with agitation: (3) Pneumonitis: (4) HIV (human immunodeficiency virus infection): (5) Acute respiratory failure with hypoxia: (6) Wheezing: Plan 32-year-old male with a history of HIV, polysubstance abuse, vaping and severe anxiety with evidence of a EVALI and possible PJP. -EVALI is a diagnosis of exclusion. We will empirically start the patient on Solu-Medrol 40 mg, 3 times daily. Continue to wean high flow oxygen as able to maintain sats above 92%. -Treat empirically for PJP with Bactrim and IV steroids given history of HIV and diffuse groundglass opacities on CT chest. Follow CD4 counts and viral load. Recommend ID consult. -Patient with probable withdrawal symptoms given agitated and anxious state. We will give a one-time dose of 1 mg p.o. Ativan. Will defer further anxiolysis to the primary team. I have alerted the primary physician, Dr. Kiya Abreu. -Continue nebulizer treatments for severe bronchospasm. We will give 2 g of IV magnesium as well. Add nebulized budesonide along with nebulized formoterol. -Discontinue airborne isolation precautions as tuberculosis is extremely unlikely given the CT imaging. Thank you for this interesting consult. We will continue to follow with you. History of Present Illness Reason for Consultation: Hypoxic respiratory failure Attending Physician: Swapnil Abreu History of Present Illness 32-year-old male with a past medical history of HIV, hepatitis, drug abuse, heroin abuse and cocaine abuse who presented to the hospital due to shortness of breath. He underwent a CT chest which revealed diffuse patchy groundglass opacities. Respiratory viral panel was negative. Patient reports frequent smoking and vaping. He has been requiring high flow nasal cannula today. He is currently on 75% FiO2 saturating 88%. He is extremely anxious. He notes that he is upset with the primary service as he has not been seen yet. He notes worsening anxiety throughout the day. He has severe dyspnea with minimal exertion. He notes that he has been smoking since the age of 12 roughly 1 to 2 packs a day. He notes that he has become more short of breath since starting vaping about 3 months ago. He indicates that he is no longer using any illicit drugs. His brother is at bedside and is able to corroborate the history. Patient notes he was hospitalized 3 times in his teens for asthma. Admitting services started the patient on Zosyn, Bactrim and azithromycin empirically. His family history includes severe emphysema, COPD. Allergies Allergy/AdvReac Type Severity Reaction Status Date / Time No Known Allergies Allergy Verified 09/01/22 20:39 Home Medications Medication Instructions Recorded Confirmed Type buprenorphine 8 mg-naloxone 2 mg 1 film sublingual BID 07/17/22 09/01/22 History sublingual film naloxone 4 mg/actuation nasal spray 0 spray intranasal DIRECTED PRN 07/17/22 09/01/22 History OVERSEDATION bictegravir 50 mg-emtricitabine 1 tab PO DAILY #30 tabs 08/01/22 09/01/22 Rx 200 mg-tenofovir alafenam 25 mg tablet (Biktarvy) gabapentin 600 mg tablet 1,200 mg PO BID #120 tabs 08/01/22 09/01/22 Rx Patient History Medical History (Updated 09/02/22 @ 13:51 by Rancho Shine MD) Acute respiratory failure with hypoxia Anxiety with agitation Drug abuse and dependence 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) Wheezing Surgical History History of orthopedic surgery Social History Smoking Status: Current every day smoker Tobacco Type: E-cigarettes / Vaping Cigarettes Per Day: x1 pack; Second Hand Exposure: Yes; Do You Dip or Chew Tobacco: No; Tobacco Cessation Education Requested by Patient: No Hx Alcohol Use: Yes Alcohol type: beer Hx Substance Use: Yes Last Used Substance: Unknown Preferred Language: Greenlandic Communication Ability: Effective Air Traffic Coordinator Required: No Beliefs That Will Affect Care: None Current Living Situation: Family Other Information That Helps Us Care for You: No Feels Safe at Home: Yes Safety Concerns: Feels Safe At This Time Review of Systems Review of Systems: All systems reviewed & are unremarkable except as noted in HPI & below Physical Exam Physical Exam: Constitutional: Patient appears to be of their stated age. Patient is in moderate distress. Patient is well-developed. Eyes: Pupils are equal round and reactive to light. Conjunctivae are normal. Anicteric sclera. Ears nose, mouth and throat: Mallampati class 2. Normal posterior oropharynx. Uvula is midline. Neck: Trachea is midline. Visual inspection is normal. Respiratory: Diffuse wheezing and rales. Mild tachypnea. Cardiovascular: Regular rate and rhythm. No murmurs. No edema. Gastrointestinal: Normal bowel sounds, soft, nontender and nondistended. No hepatosplenomegaly noted. Musculoskeletal: No cyanosis. Patient is able to move all extremities. Strength is 5 out of 5 in the upper and lower extremities. Skin: No rashes, warm dry and intact. Neurologic: No obvious focal neurological deficits seen. Psychiatric: Severely anxious and agitated. Poor eye contact. Results & Data Results & Data Vital Signs (Past 12 Hours) Vital Signs Temp Pulse Pulse Resp BP Pulse Ox O2 Del Method 09/02/22 08:00 High Flow Nasal Cannula 09/02/22 10:02 86 28 H 95 High Flow Nasal Cannula 09/02/22 09:15 90 09/02/22 08:00 36.8 C 96 H 20 128/72 88 L Oxymask 09/02/22 08:05 83 28 H 91 Nasal Cannula 09/02/22 05:50 85 22 95 Nasal Cannula 09/02/22 01:40 86 09/02/22 02:52 36.8 C 85 18 117/65 89 L Oxymask 09/02/22 01:43 85 18 95 Oxymask 09/02/22 00:45 36.8 C 76 25 H 113/48 L 93 Oxymask 09/02/22 00:50 Oxymask O2 Flow Rate FiO2 09/02/22 08:00 15 09/02/22 10:02 25 70 09/02/22 09:15 09/02/22 08:00 89 09/02/22 08:05 11 09/02/22 05:50 11 09/02/22 01:40 09/02/22 02:52 09/02/22 01:43 11 09/02/22 00:45 11 09/02/22 00:50 11 PG Care Time/CCT Total # of Minutes Spent Total Time Spent with Patient: Total time spent is greater than 50% in coordination of care (as documented) at patient's floor/unit and/or counseling patient: Coding Level of Care Code 67427 IN/OBS CONSULT LVL 5,80M Diagnoses 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) U07.0 Anxiety with agitation F41.9; R45.1 Pneumonitis J18.9 HIV (human immunodeficiency virus infection) B20 Acute respiratory failure with hypoxia J96.01 Wheezing R06.2
[2022-09-02 13:23] LABS: C Reactive Protein 13.66 mg/dl (0-0.5)
[2022-09-02] MEDS: DOCUSATE SODIUM/SENNA 50/8.6MG TAB PO SCH (13:49)
[2022-09-02] MEDS: POLYETHYLENE (MIRALAX) 17 GM PACK PO SCH (13:49)
[2022-09-02] MEDS ORDERED: chlordiazePOXIDE ALCOHOL WITHDRAWL 50MG PO STA (13:51)
[2022-09-02] MEDS ORDERED: ALBUT/IPRATROP 3MG/0.5MG NEB 3 ML VIAL NEB ONE (14:31)
[2022-09-02] MEDS: chlordiazePOXIDE HCl 25 MG CAP PO SCH ×2 (15:07→20:40)
[2022-09-02] MEDS: MAGNESIUM SULFATE / D5W 1 GM/100 ML BAG IV SCH ×2 (15:08→17:43)
[2022-09-02] MEDS: methylPREDNISolone 40 MG in SYRINGE 0 ML IV SCH ×2 (15:13→21:48)
[2022-09-02] MEDS ORDERED: ALPRAZolam 0.5 MG TABLET PO STA (16:36)
[2022-09-02] MEDS: FORMOTEROL 20 MCG/2 ML VIAL NEB SCH (19:28)
[2022-09-02] MEDS: BUDESONIDE 0.5 MG/2 ML VIAL (PULMICORT) NEB SCH (19:29)
--- NOTE | 2022-09-02 20:17 | Billing Data ---
Date of Service September 02, 2022 Coding Level of Care Code 54176 INT INP/OBS CARE
[2022-09-02] MEDS: ALPRAZolam 0.5 MG TABLET PO PRN (20:30)
[2022-09-02] MEDS: AZITHROMYCIN 500 MG in DEXTROSE 5% 250 ML IV SCH (21:47)
--- NOTE | 2022-09-02 22:31 | Hospitalist Progress Note ---
Date of Service September 02, 2022 Assessment & Plan (1) Hypoxia: Plan: Patient is a 32-year-old male with past medical history of HIV, hepatitis C, drug abuse and dependence, history of heroin abuse, and history of cocaine use who presented to the hospital for concern of dyspnea. Imaging consistent with pneumonitis. However, respiratory viral panel has been negative. Pt being admitted for O2 supplementation and workup. -Admit to [facility] with telemetry as well as isolation precautions due to HIV status and undiagnosed infection at this time. -Broad-spectrum coverage with Zosyn, azithromycin, and PJP coverage with Bactrim. -Last CD4 value unknown -Supplemental oxygen as needed. -Rangel TB testing to be ordered -Mucinex twice daily -Incentive spirometry, flutter valve -DuoNeb every 4 hours as needed -Encourage smoking and vaping cessation -Nicotine patch applied -Agree with PJP treatment, continue corticosteroids -awaiting input from ID. Appreciate input from pulm, will obtain sputum culture: likely source is PJP pneumonia (2) Pneumonitis: Plan: Likely PJP pneumonia. -Noted on CTA of chest -Antibiotic coverage as above. -If symptoms are progressing and antibiotics are not providing relief, consider pulmonology consult. -CPAP/BiPAP as needed (3) HIV (human immunodeficiency virus infection): Plan: -Unknown previous CD4 count -CD4 level ordered -Antibiotic coverage as above -Rangel testing for TB as above -Continue home Biktarvy. Pt has to bring this from home as it is non-formulary (4) Drug abuse and dependence: Plan: -Patient sees [facility] for Suboxone -Patient has appointment tomorrow for refills, however, very unlikely to make this appointment -Suboxone twice daily ordered while inpatient. Patient appears to be in withdrawalm will place on librium taper. (5) History of heroin abuse: Plan: -See above (6) HCV (hepatitis C virus): Plan: -noted. CMP ordered Plan Diet: Regular DVT prophylaxis: Lovenox Disposition: Admit to [facility] with telemetry, isolation precautions until work- up is complete CODE STATUS: Full code Admission and Anticipated Discharge Date Admission Date: September 01, 2022 Subjective Patient reports SOB, and reports being very anxious today. Patient is requesting xanax. Review of Systems Review of Systems: All systems reviewed & are unremarkable except as noted in HPI & below Physical Exam Physical Exam: Constitutional: WD/WN, vitals as above, appears in distress Eyes: + anicteric sclerae and PERRL ENMT: external ear and nose normal, oropharynx normal Neck: trachea midline, no thyromegaly Respiratory: Auscultation: + wheezes and + bronchial breath sounds Cardiovascular: RRR, no murmur, no edema Chest (Breasts): normal inspection/palpation of breasts Gastrointestinal (Abdomen): normal bowel sounds, soft, nontender, no hepatosplenomegaly Musculoskeletal: Head/Neck/Chest: normocephalic and head atraumatic Skin: excoriations on skin. Neurologic: moves all extremities Psychiatric: A+Ox3, euthymic affect Results & Data Results & Data Vital Signs (Past 12 Hours) Vital Signs Temp Pulse Pulse Resp BP Pulse Ox O2 Del Method 09/02/22 19:00 36.9 C 105 H 24 104/54 L 90 Nasal Cannula 09/02/22 20:00 High Flow Nasal Cannula 09/02/22 19:30 105 H 20 80 L High Flow Nasal Cannula 09/02/22 17:44 96 H 09/02/22 14:33 98 H 26 H 93 High Flow Nasal Cannula 09/02/22 11:38 37.0 C 75 18 109/73 97 Room Air O2 Flow Rate FiO2 09/02/22 19:00 09/02/22 20:00 30 80 09/02/22 19:30 30 09/02/22 17:44 09/02/22 14:33 30 70 09/02/22 11:38 PG Care Time/CCT Total # of Minutes Spent Total Time Spent with Patient: Total time spent is greater than 50% in coordination of care (as documented) at patient's floor/unit and/or counseling patient: Coding Level of Care Code 86496 SUB INP/OBS CARE 3/50MIN Diagnoses Hypoxia R09.02 Pneumonitis J18.9 HIV (human immunodeficiency virus infection) B20 Drug abuse and dependence F19.20 History of heroin abuse F11.11 HCV (hepatitis C virus) B19.20
[2022-09-02] MEDS ORDERED: LORazepam 2 MG/1 ML VIAL IV STA (22:37)
[2022-09-02] MEDS: NICOTINE 21 MG/24 HR TDSY TD SCH ×2 (22:55→23:01)
[2022-09-03] MEDS: chlordiazePOXIDE HCl 25 MG CAP PO SCH ×2 (02:58→08:57)
[2022-09-03] MEDS: DEXTROSE 5% IV SCH ×3 (02:59→16:28)
[2022-09-03] MEDS: PIPERACILLIN/TAZOBACTAM 4.5 GM in DEXTROSE 5% 100 ML IV SCH ×3 (02:59→18:32)
[2022-09-03] MEDS: SULFA IV SCH ×3 (02:59→16:28)
[2022-09-03] MEDS: TRIMETH IV SCH ×3 (02:59→16:28)
[2022-09-03] MEDS: ALPRAZolam 0.5 MG TABLET PO PRN ×2 (03:00→08:57)
[2022-09-03] MEDS: BUDESONIDE 0.5 MG/2 ML VIAL (PULMICORT) NEB SCH ×2 (07:12→19:15)
[2022-09-03] MEDS: FORMOTEROL 20 MCG/2 ML VIAL NEB SCH ×2 (07:12→19:14)
[2022-09-03] MEDS: ENOXAPARIN INJ 40 MG/0.4 ML SYR SQ SCH (08:49)
[2022-09-03] MEDS: DOCUSATE SODIUM/SENNA 50/8.6MG TAB PO SCH (08:49)
[2022-09-03] MEDS: POLYETHYLENE (MIRALAX) 17 GM PACK PO SCH (08:50)
[2022-09-03] MEDS: GABAPENTIN 600 MG TAB PO SCH (08:50)
[2022-09-03] MEDS: guaiFENesin 600 MG TABCR PO SCH ×2 (08:50→20:41)
[2022-09-03] MEDS: BUPRENORPHINE/NALOXONE 8/2 MG TAB SL SCH ×2 (08:57→19:35)
--- NOTE | 2022-09-03 09:11 | Infectious Disease Consult ---
Date of Consultation September 03, 2022 Assessment & Plan (1) Wheezing: (2) Acute respiratory failure with hypoxia: (3) HIV (human immunodeficiency virus infection): (4) HCV (hepatitis C virus): (5) Cocaine abuse: Plan #Pneumonia with GGO #HIV #Hepatitis C #Drug use #LE rash 32 yo M with h/o HIV on Biktarvy, hepatitis C, drug abuse and dependence, history of heroin abuse, and history of cocaine use who presented to the hospital for concern of dyspnea on 09/01. Infectious diseases consulted for HIV and pneumonia. Patient p/w nonproductive and SOB over past 3 days [employer]. Notably he is on Suboxone. Regarding his HIV, he is on Biktarvy and is undetectable and normal CD4 but unable to give numbers. Risk factors: currently smokes/vapes, no sick contacts, no new travel o new rashes. On admission, vitals stable. Initial labs remarkable for white count 12.38 with a neutrophilic predominance, relatively normal chemistry, lactate dehydrogenase at 350, procalcitonin negative. Viral PCR panel negative for all viruses on panel. COVID-negative. Diagnostic imaging included an x-ray and chest CTA both of which are indicative of pneumonitis suspicious for viral etiology. CTA showed GGO. Patient was started on Zosyn, azithromycin, and Bactrim. Patient was incarcerated for 3 years and released 7 months ago, He states he started Biktarvy Discussion: Patient with u/k CD4, VL, additional risk factors, outdoor landscaping, poor hygiene, incarceration about 7 months ago. GGO on imaging in setting of HIV make PJP very likely possibility but typically subacute. He is on IV Bactrim, agree with corticosteroids. May be able to do oral Bactrim and oral prednisone given he can take oral but will monitor oxygenation o/n. PJP PCR pending, BDG serum pending, will check aspergillus antigen. Viral panel is negative. Check MRSA pcr. Exam is concerning for scabies Recommend 1. pneumonia - Follow PJP PCR, Sputum culture, BDG, Add Fungitell, Aspergillus antigen Risk for TB but imaging and presentation not c/w TB - no nodules or caviatry lesions Check MRSA nares C/W Zosyn, azithromycin 2. Possible PJP, if hypoxia improves will change to po Bactrim and Prednisone 3. HIV, AIDS? Check CD4, VL, check RPR Continue Biktarvy 4. LE lesions c/w scabies, nursing alerted --> Start permethrin cream I spoke with Dr. Abreu, ID will follow Yaritza Sal MD Infectious Diseases Yaritza Sal MD Consultation Information Consultation was provided via telemedicine using two-way real-time interactive telecommunication between the patient and the telemedicine provider. For the duration of the visit, the provider was performing the assessment from a different facility than the patient. This includesuse of bluetooth stethoscope forauscultationperformed by the telepresenter that the telemedicine provider can hear if described in the physical exam. [employer] Technical [employer] contact information: Please call [facility] . (Phone Number For Physician Use Only) After establishing a telemedicine visit, patient was: Patient was verified with two unique identifiers, Patient/authorized rep acknowledged consent and understanding and Gave permission to continue telehealth session Time Spent with Patient: Initial => 55 min History of Present Illness Reason for Consultation: HIV and pneumonia Requesting Physician: Dr. Abreu Attending Physician: Swapnil Abreu History of Present Illness 32 yo M with h/o HIV on Biktarvy, hepatitis C, drug abuse and dependence, history of heroin abuse, and history of cocaine use who presented to the hospital for concern of dyspnea on 09/01. Infectious diseases consulted for HIV and pneumonia. Patient p/w nonproductive and SOB over past 3 days [employer]. Notably he is on Suboxone. Regarding his HIV, he is on Biktarvy and is undetectable and normal CD4 but unable to give numbers. Risk factors: currently smokes/vapes, no sick contacts, no new travel o new rashes. On admission, he was hypoxic Initial labs remarkable for white count 12.38 with a neutrophilic predominance, relatively normal chemistry, lactate dehydrogenase at 350, procalcitonin negative. Viral PCR panel negative for all viruses on panel. COVID-negative. Diagnostic imaging included an x-ray and chest CTA both of which are indicative of pneumonitis suspicious for viral etiology. Patient was started on Zosyn, azithromycin, and Bactrim. On my interview today, Patient tells me he was incarcerated for 3 years and released 7 months ago, He states he started Biktarvy on discharge and has been taking everyday, hes not seen ID but PMD has prescribed Biktarvy. SOB 3 days [employer]. He started vaping about 1 montha ago and associates SOB wth when cartridge was changed out. No diarrhea, no animal bites, tick bites. Has 3 dogs and 1 Rabbit at home. ROS notable for rash on lower extremities, "itchy" and has seen black bugs coming out of lesions. Allergies Allergy/AdvReac Type Severity Reaction Status Date / Time No Known Allergies Allergy Verified 09/01/22 20:39 Home Medications Medication Instructions Recorded Confirmed Type buprenorphine 8 mg-naloxone 2 mg 1 film sublingual BID 07/17/22 09/01/22 History sublingual film naloxone 4 mg/actuation nasal spray 0 spray intranasal DIRECTED PRN 07/17/22 09/01/22 History OVERSEDATION bictegravir 50 mg-emtricitabine 1 tab PO DAILY #30 tabs 08/01/22 09/01/22 Rx 200 mg-tenofovir alafenam 25 mg tablet (Biktarvy) gabapentin 600 mg tablet 1,200 mg PO BID #120 tabs 08/01/22 09/01/22 Rx Patient History Medical History Acute respiratory failure with hypoxia Anxiety with agitation Drug abuse and dependence 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) Wheezing Surgical History History of orthopedic surgery Social History Smoking Status: Current every day smoker Tobacco Type: E-cigarettes / Vaping Cigarettes Per Day: x1 pack; Second Hand Exposure: Yes; Do You Dip or Chew Tobacco: No; Tobacco Cessation Education Requested by Patient: No Hx Alcohol Use: Yes Alcohol type: beer Hx Substance Use: Yes Last Used Substance: Unknown Preferred Language: Ghanaian Communication Ability: Effective Steel Buffer Required: No Beliefs That Will Affect Care: None Current Living Situation: Family Other Information That Helps Us Care for You: No Feels Safe at Home: Yes Safety Concerns: Feels Safe At This Time Physical Exam Physical Exam: NAD Tachypneic multiple tattoos LE lesions raised, around ankles Results & Data Vital Signs (Past 12 Hours) Vital Signs Temp Pulse Pulse Resp BP Pulse Ox Pulse Ox 09/03/22 07:00 36.5 C 87 18 115/66 97 09/03/22 07:15 79 24 96 09/03/22 03:32 100 H 25 H 97 09/03/22 03:00 36.9 C 70 24 116/80 90 09/02/22 23:00 105 H 09/03/22 00:41 91 09/03/22 00:36 77 18 89 L 09/02/22 23:58 107 H 18 89 L 09/02/22 22:49 37.0 C 104 H 23 106/59 L 90 O2 Del Method O2 Del Method O2 Flow Rate O2 Flow Rate FiO2 09/03/22 07:00 High Flow Nasal Cannula 09/03/22 07:15 High Flow Nasal Cannula 30 90 09/03/22 03:32 High Flow Nasal Cannula 30 100 09/03/22 03:00 Nasal Cannula 09/02/22 23:00 09/03/22 00:41 High Flow Nasal Cannula 30 09/03/22 00:36 High Flow Nasal Cannula 30 100 09/02/22 23:58 High Flow Nasal Cannula 30 80 09/02/22 22:49 Room Air, Nasal Cannula Laboratory Results Laboratory Results - last 48 hr 09/01/22 09/01/22 09/01/22 19:35 19:35 19:35 WBC 12.38 H RBC 4.95 Hgb 15.4 POC Hgb Hct 44.6 POC Hct MCV 90.1 MCH 31.1 MCHC 34.5 RDW Std Deviation 43.0 RDW Coeff of Estelle 13.2 Plt Count 228 MPV 10.0 Immature Gran % (Auto) 0.3 Neut % (Auto) 67.6 Lymph % (Auto) 13.8 Greene % (Auto) 6.7 Eos % (Auto) 11.0 Baso % (Auto) 0.6 Neut # (Auto) 8.36 H Lymph # (Auto) 1.71 Greene # (Auto) 0.83 H Eos # (Auto) 1.36 H Baso # (Auto) 0.08 Immature Gran # (Auto) 0.04 PT 11.3 INR 1.0 POC Sodium Sodium 134 L POC Potassium Potassium 4.0 POC Chloride Chloride 100 Carbon Dioxide 26 POC Total CO2 Anion Gap 8 POC Anion Gap POC BUN BUN 10 Creatinine 1.02 POC Creatinine Est Cr Clr Drug Dosing 95.6 Est GFR ( Amer) 113.8 Est GFR (Non-Af Amer) 98.2 BUN/Creatinine Ratio 9.8 L Glucose 95 POC Glucose (other) Lactate Calcium 9.6 POC Ioniz Calcium Jevon Total Bilirubin 1.2 H AST 27 ALT 9 Alkaline Phosphatase 120 H Lactate Dehydrogenase Troponin I High Sens 3.9 C-Reactive Protein Total Protein 8.1 Albumin 4.6 Globulin 3.5 Albumin/Globulin Ratio 1.3 Procalcitonin Adenovirus (PCR) B. pertussis DNA (PCR) B.parapertussis DNA PCR C. pneumoniae DNA (PCR) Coronavirus OC43 (PCR) Coronavirus HKU1 (PCR) Coronavirus 229E (PCR) SARS-CoV-2 (PCR) Coronavirus NL63 (PCR) Human Metapneumovir PCR Influenza Type A (PCR) Influenza Type B (PCR) M. pneumoniae (PCR) Parainfluenza 1 (PCR) Parainfluenza 2 (PCR) Parainfluenza 3 (PCR) Parainfluenza 4 (PCR) RSV (PCR) Entero/Rhino (PCR) 09/01/22 09/01/22 09/01/22 19:35 19:36 19:40 WBC RBC Hgb POC Hgb Hct POC Hct MCV MCH MCHC RDW Std Deviation RDW Coeff of Estelle Plt Count MPV Immature Gran % (Auto) Neut % (Auto) Lymph % (Auto) Greene % (Auto) Eos % (Auto) Baso % (Auto) Neut # (Auto) Lymph # (Auto) Greene # (Auto) Eos # (Auto) Baso # (Auto) Immature Gran # (Auto) PT INR POC Sodium Sodium POC Potassium Potassium POC Chloride Chloride Carbon Dioxide POC Total CO2 Anion Gap POC Anion Gap POC BUN BUN Creatinine POC Creatinine Est Cr Clr Drug Dosing Est GFR ( Amer) Est GFR (Non-Af Amer) BUN/Creatinine Ratio Glucose POC Glucose (other) Lactate 1.4 Calcium POC Ioniz Calcium Jevon Total Bilirubin AST ALT Alkaline Phosphatase Lactate Dehydrogenase Troponin I High Sens C-Reactive Protein Total Protein Albumin Globulin Albumin/Globulin Ratio Procalcitonin < 0.05 Adenovirus (PCR) Not Detected B. pertussis DNA (PCR) Not Detected B.parapertussis DNA PCR Not Detected C. pneumoniae DNA (PCR) Not Detected Coronavirus OC43 (PCR) Not Detected Coronavirus HKU1 (PCR) Not Detected Coronavirus 229E (PCR) Not Detected SARS-CoV-2 (PCR) Not Detected Coronavirus NL63 (PCR) Not Detected Human Metapneumovir PCR Not Detected Influenza Type A (PCR) Not Detected Influenza Type B (PCR) Not Detected M. pneumoniae (PCR) Not Detected Parainfluenza 1 (PCR) Not Detected Parainfluenza 2 (PCR) Not Detected Parainfluenza 3 (PCR) Not Detected Parainfluenza 4 (PCR) Not Detected RSV (PCR) Not Detected Entero/Rhino (PCR) Not Detected 09/01/22 09/01/22 09/02/22 19:45 23:00 09:01 WBC 9.84 RBC 4.31 L Hgb 13.2 L POC Hgb 16.0 Hct 38.6 L POC Hct 47 MCV 89.6 MCH 30.6 MCHC 34.2 RDW Std Deviation 43.2 RDW Coeff of Estelle 13.0 Plt Count 182 MPV 10.1 Immature Gran % (Auto) Neut % (Auto) Lymph % (Auto) Greene % (Auto) Eos % (Auto) Baso % (Auto) Neut # (Auto) Lymph # (Auto) Greene # (Auto) Eos # (Auto) Baso # (Auto) Immature Gran # (Auto) PT INR POC Sodium 136 Sodium POC Potassium 4.0 Potassium POC Chloride 98 L Chloride Carbon Dioxide POC Total CO2 23 L Anion Gap POC Anion Gap 20.0 POC BUN 9 BUN Creatinine POC Creatinine 1.0 Est Cr Clr Drug Dosing Est GFR ( Amer) Est GFR (Non-Af Amer) BUN/Creatinine Ratio Glucose POC Glucose (other) 101 H Lactate Calcium POC Ioniz Calcium Jevon 1.12 Total Bilirubin AST ALT Alkaline Phosphatase Lactate Dehydrogenase 350 H Troponin I High Sens C-Reactive Protein Total Protein Albumin Globulin Albumin/Globulin Ratio Procalcitonin Adenovirus (PCR) B. pertussis DNA (PCR) B.parapertussis DNA PCR C. pneumoniae DNA (PCR) Coronavirus OC43 (PCR) Coronavirus HKU1 (PCR) Coronavirus 229E (PCR) SARS-CoV-2 (PCR) Coronavirus NL63 (PCR) Human Metapneumovir PCR Influenza Type A (PCR) Influenza Type B (PCR) M. pneumoniae (PCR) Parainfluenza 1 (PCR) Parainfluenza 2 (PCR) Parainfluenza 3 (PCR) Parainfluenza 4 (PCR) RSV (PCR) Entero/Rhino (PCR) 09/02/22 09/02/22 09:01 09:01 WBC RBC Hgb POC Hgb Hct POC Hct MCV MCH MCHC RDW Std Deviation RDW Coeff of Estelle Plt Count MPV Immature Gran % (Auto) Neut % (Auto) Lymph % (Auto) Greene % (Auto) Eos % (Auto) Baso % (Auto) Neut # (Auto) Lymph # (Auto) Greene # (Auto) Eos # (Auto) Baso # (Auto) Immature Gran # (Auto) PT INR POC Sodium Sodium 136 POC Potassium Potassium 3.8 POC Chloride Chloride 105 Carbon Dioxide 23 POC Total CO2 Anion Gap 8 POC Anion Gap POC BUN BUN 9 Creatinine 0.90 POC Creatinine Est Cr Clr Drug Dosing 108.3 Est GFR ( Amer) 132.4 Est GFR (Non-Af Amer) 114.2 BUN/Creatinine Ratio 10.0 Glucose 89 POC Glucose (other) Lactate Calcium 8.7 POC Ioniz Calcium Jevon Total Bilirubin 0.9 AST 28 ALT 9 Alkaline Phosphatase 90 Lactate Dehydrogenase Troponin I High Sens C-Reactive Protein 13.66 H Total Protein 6.5 Albumin 3.9 Globulin 2.6 Albumin/Globulin Ratio 1.5 Procalcitonin < 0.05 Adenovirus (PCR) B. pertussis DNA (PCR) B.parapertussis DNA PCR C. pneumoniae DNA (PCR) Coronavirus OC43 (PCR) Coronavirus HKU1 (PCR) Coronavirus 229E (PCR) SARS-CoV-2 (PCR) Coronavirus NL63 (PCR) Human Metapneumovir PCR Influenza Type A (PCR) Influenza Type B (PCR) M. pneumoniae (PCR) Parainfluenza 1 (PCR) Parainfluenza 2 (PCR) Parainfluenza 3 (PCR) Parainfluenza 4 (PCR) RSV (PCR) Entero/Rhino (PCR) Microbiology 09/02/22 Unknown Sputum, Expectorated Gram Stain - Final 09/01/22 20:15 Blood Aerobic Blood Culture - Preliminary No growth in Aerobic bottle after 24 hours. 09/01/22 20:15 Blood Anaerobic Blood Culture - Preliminary No growth in Anaerobic bottle after 24 hours. 09/01/22 19:35 Blood Aerobic Blood Culture - Preliminary No growth in Aerobic bottle after 24 hours. 09/01/22 19:35 Blood Anaerobic Blood Culture - Preliminary No growth in Anaerobic bottle after 24 hours. Medications Administered Current Inpatient Medications Acetaminophen (Acetaminophen 325 Mg Tab) 650 mg PO Q4H PRN PRN Reason: Pain or Fever Stop: 10/02/22 00:40 Albuterol (Albut/Ipratrop 3mg/0.5mg Neb 3 Ml Vial) 3 ml NEB Q4R PRN; Protocol PRN Reason: Shortness Of Breath Or Wheezing Stop: 10/02/22 02:59 Last Admin: 09/02/22 10:02 Dose: 3 ml Alprazolam (Alprazolam 0.5 Mg Tablet) 1 mg PO Q4H PRN PRN Reason: Anxiety Stop: 10/02/22 16:33 Last Admin: 09/03/22 08:57 Dose: 1 mg Budesonide (Budesonide 0.5 Mg/2 Ml Vial (Pulmicort)) 0.5 mg NEB BIDR [facility] Stop: 10/02/22 18:59 Last Admin: 09/03/22 07:12 Dose: 0.5 mg Buprenorphine/Naloxone (Buprenorphine/Naloxone 8/2 Mg Tab) 1 tab SL BID [facility] Stop: 10/02/22 08:59 Last Admin: 09/03/22 08:57 Dose: 1 tab Chlordiazepoxide HCl (Chlordiazepoxide Hcl 25 Mg Cap) 50 mg PO Q8H [facility] Stop: 09/04/22 08:01 Chlordiazepoxide HCl (Chlordiazepoxide Hcl 25 Mg Cap) 25 mg PO Q8H [facility] Stop: 09/05/22 08:01 Chlordiazepoxide HCl (Chlordiazepoxide Hcl 10 Mg Cap) 10 mg PO Q12H [facility] Stop: 09/06/22 08:01 Enoxaparin Sodium (Enoxaparin Inj 40 Mg/0.4 Ml Syr) 40 mg SQ DAILY [facility] Stop: 10/02/22 08:59 Last Admin: 09/03/22 08:49 Dose: 40 mg Formoterol Fumarate (Formoterol 20 Mcg/2 Ml Vial) 20 mcg NEB BIDR [facility] Stop: 10/02/22 18:59 Last Admin: 09/03/22 07:12 Dose: 20 mcg Gabapentin (Gabapentin 600 Mg Tab) 1,200 mg PO BID [facility] Stop: 10/02/22 08:59 Last Admin: 09/03/22 08:50 Dose: 1,200 mg Guaifenesin (Guaifenesin 600 Mg Tabcr) 600 mg PO Q12 [facility] Stop: 10/02/22 08:59 Last Admin: 09/03/22 08:50 Dose: 600 mg Piperacillin Sod/Tazobactam (Sod 4.5 gm/ Dextrose) 120 mls @ 30 mls/hr IV Q8H [facility]; Protocol Stop: 09/09/22 01:59 Last Admin: 09/03/22 02:59 Dose: 30 mls/hr Azithromycin 500 mg/ Dextrose 255 mls @ 125 mls/hr IV Q24H [facility] Stop: 09/09/22 19:59 Last Infusion: 09/03/22 00:00 Dose: Infused Trimethoprim/Sulfamethoxazole (240 mg/ Dextrose) 515 mls @ 333 mls/hr IV Q6H [facility] Stop: 09/04/22 01:14 Last Admin: 09/03/22 08:58 Dose: 333 mls/hr Methylprednisolone 40 mg/ (Syringe) 0.64 mls @ 1.5 mls/min IV TID [facility] Stop: 10/02/22 13:59 Last Admin: 09/02/22 21:48 Dose: 1.5 mls/min Miscellaneous (Remove Nicoderm Patch) 1 each N/A DAILY@0859 [facility] Stop: 10/02/22 08:58 Last Admin: 09/03/22 08:58 Dose: 1 each Miscellaneous (*Biktarvy*Order Awaiting Action) 1 each N/A QS [facility] Stop: 10/02/22 07:59 Last Admin: 09/03/22 08:48 Dose: Not Given Nicotine (Nicotine 21 Mg/24 Hr Tdsy) 21 mg TD DAILY@2100 [facility] Stop: 10/02/22 20:39 Last Admin: 09/02/22 23:01 Dose: Not Given Ondansetron HCl (Ondansetron Inj 2 Mg/Ml 2 Ml Vial) 4 mg IV Q6H PRN PRN Reason: Nausea Stop: 10/02/22 00:40 Polyethylene Glycol (Polyethylene (Miralax) 17 Gm Pack) 17 gm PO DAILY [facility] Stop: 10/02/22 12:44 Last Admin: 09/03/22 08:50 Dose: 17 gm Senna/Docusate Sodium (Docusate Sodium/Senna 50/8.6mg Tab) 1 tab PO QAM [facility] Stop: 10/02/22 12:44 Last Admin: 09/03/22 08:49 Dose: 1 tab
[2022-09-03 09:29] LABS: Hemoglobin 12.8 g/dl (14.0-18.0); Mean Corpuscular Hemoglobin 30.8 pg (25.0-34.0); Mean Corpuscular Hgb Conc 34.6 g/dL (32.0-36.0); Mean Corpuscular Volume 88.9 fL (80.0-100.0); Mean Platelet Volume 9.9 fL (9.4-12.4); Platelet Count 210 K/uL (130-400); RDW Coefficient of Variation 13.2 % (11.5-14.5); RDW Standard Deviation 42.7 fL (36.4-46.3); Red Blood Count 4.16 M/uL (4.70-6.10); White Blood Count 12.99 K/ul (4.8-10.8)
[2022-09-03 09:54] LABS: BUN Creatinine Ratio 21.7 (10-20); C Reactive Protein 15.44 mg/dl (0-0.5); Creatinine Clr Calc Pharmacy 117.4 ml/min; Est GFR (African American) 136.8 ml/min; Est GFR (Non-African American) 118.1 ml/min; Potassium 4.3 mmol/L (3.5-5.1)
[2022-09-03] MEDS: methylPREDNISolone 40 MG in SYRINGE 0 ML IV SCH ×3 (10:04→20:44)
[2022-09-03] MEDS ORDERED: PERMETHRIN 5% CR 60 GM TUBE EXT ONE (10:15)
--- NOTE | 2022-09-03 10:19 | XRay Report ---
XR chest 1V portable CLINICAL HISTORY: hypoxia TECHNIQUE: Single frontal radiograph of the chest was obtained. Comparison: Comparison is made to chest radiograph 09/02/2022 FINDINGS: No lines and tubes are seen. The cardiomediastinal silhouette is normal. Bilateral airspace opacities are again seen. No evidence of pleural effusion or pneumothorax. IMPRESSION: Stable bilateral airspace opacities compatible with pneumonia. ACT 112: Negative or not required by law. Electronically signed by: Jeff Bean M.D. 09/03/2022 10:18 AM
--- NOTE | 2022-09-03 10:33 | Critical Care Progress Note ---
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 Due to increasing oxygen demands and increasing lethargy, will transfer the patient to the ICU for closer monitoring. May need to utilize Precedex drip. Low threshold for intubation and mechanical ventilation due to agitated delirium and hypoxia. -Discontinue gabapentin at this time as the patient is becoming overly sedated. Continue Librium taper. Continue Suboxone. -EVALI is a diagnosis of exclusion. Continue Solu-Medrol 40 mg, 3 times daily. Continue to wean high flow oxygen as able to maintain sats above 92%. -Treat empirically for PJP with Bactrim and IV steroids given history of HIV and diffuse groundglass opacities on CT chest. Follow CD4 counts and viral load. Appreciate ID consult. -Patient with probable withdrawal symptoms given agitated and anxious state. -Continue nebulizer treatments for severe bronchospasm. Continue nebulized bude sonide along with nebulized formoterol. -Currently on isolation for scabies. CRITICAL CARE TIME - I have personally spent 35 minutes of critical care time in the direct management of this patient. This is a life/limb threatening event. This includes time spent evaluating patient, direct bedside care, chart review, placing orders, interpretation of diagnostic studies, discussion with consultants, patient, and family members, as well as other required patient management activities. This time is exclusive of all separately billable procedures, and teaching time and separate from and in addition to any other critical care service time. Admission and Anticipated Discharge Date Admission Date: September 01, 2022 Subjective Patient had increased periods of agitation overnight and required doses of gabapentin, Xanax and Ativan. He is a bit lethargic today, but following commands and able to sit up in bed when requested. He notes shortness of breath with minimal exertion. His high flow requirements have increased compared to yesterday and he is currently requiring 80% FiO2 and 30 L of oxygen. He saturates in the low 90s. He continues to have a significant wheeze. He notes that his cough has improved. He feels that steroids are improving his appetite and his breathing. He remains very anxious. Review of Systems Review of Systems: All systems reviewed & are unremarkable except as noted in HPI & below Physical Exam Physical Exam: Constitutional: Patient appears to be of their stated age. Patient is in moderate distress. Patient is well-developed. Eyes: Pupils are equal round and reactive to light. Conjunctivae are normal. Anicteric sclera. Ears nose, mouth and throat: Mallampati class 2. Normal posterior oropharynx. Uvula is midline. Neck: Trachea is midline. Visual inspection is normal. Respiratory: Diffuse wheezing and rales. Mild tachypnea. Cardiovascular: Regular rate and rhythm. No murmurs. No edema. Gastrointestinal: Normal bowel sounds, soft, nontender and nondistended. No hepatosplenomegaly noted. Musculoskeletal: No cyanosis. Patient is able to move all extremities. Strength is 5 out of 5 in the upper and lower extremities. Skin: No rashes, warm dry and intact. Neurologic: No obvious focal neurological deficits seen. Psychiatric: Severely anxious and agitated. Poor eye contact. Results & Data Results & Data Vital Signs (Past 12 Hours) Vital Signs Temp Pulse Pulse Resp BP Pulse Ox Pulse Ox 09/03/22 07:00 36.5 C 87 18 115/66 97 09/03/22 07:15 79 24 96 09/03/22 03:32 100 H 25 H 97 09/03/22 03:00 36.9 C 70 24 116/80 90 09/02/22 23:00 105 H 09/03/22 00:41 91 09/03/22 00:36 77 18 89 L 09/02/22 23:58 107 H 18 89 L 09/02/22 22:49 37.0 C 104 H 23 106/59 L 90 O2 Del Method O2 Del Method O2 Flow Rate O2 Flow Rate FiO2 09/03/22 07:00 High Flow Nasal Cannula 09/03/22 07:15 High Flow Nasal Cannula 30 90 09/03/22 03:32 High Flow Nasal Cannula 30 100 09/03/22 03:00 Nasal Cannula 09/02/22 23:00 09/03/22 00:41 High Flow Nasal Cannula 30 09/03/22 00:36 High Flow Nasal Cannula 30 100 09/02/22 23:58 High Flow Nasal Cannula 30 80 09/02/22 22:49 Room Air, Nasal Cannula Coding Level of Care Code 55842 CRITICAL CARE 1ST 30-74M Diagnoses 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
[2022-09-03] MEDS ORDERED: STAT IV Infusion **Titration per Protocol STA (11:07)
[2022-09-03] MEDS: dexMEDEtomidine 200 MCG/50 ML BAG IV SCH ×2 (12:03→17:13)
[2022-09-03] MEDS ORDERED: chlordiazePOXIDE HCl 25 MG CAP PO SCH (16:00)
[2022-09-03 19:42] LABS: Appearance Urine Clear (Clear); Bilirubin Urine Negative (Negative); Blood Urine Negative (Negative); Color Urine Yellow; Glucose Urine UA Negative (Negative); Ketones Urine Negative (Negative); Leukocyte Esterase Urine Negative (Negative); Nitrite Urine Negative (Negative); Protein Urine Negative (Negative); Urobilinogen Urine Negative (Negative); pH Urine 6.5 (4.5-7.5)
[2022-09-03 20:30] LABS: Amphetamines+Metham, Urine Neg (Neg); Barbiturates, Urine Neg (Neg); Benzodiazepine, Urine Pos (Neg); Cocaine, Urine Neg (Neg); MDMA (Ecstacy), Urine Neg (Neg); Methadone, Urine Neg (Neg); Opiate, Urine Neg (Neg); Phencyclidine, Urine Neg (Neg)
[2022-09-03] MEDS: AZITHROMYCIN 500 MG in DEXTROSE 5% 250 ML IV SCH (20:38)
[2022-09-03] MEDS: NICOTINE 21 MG/24 HR TDSY TD SCH (20:41)
--- NOTE | 2022-09-03 22:40 | Hospitalist Progress Note ---
Date of Service September 03, 2022 Assessment & Plan (1) Hypoxia: Plan: Patient is a 32-year-old male with past medical history of HIV, hepatitis C, drug abuse and dependence, history of heroin abuse, and history of cocaine use who presented to the hospital for concern of dyspnea. Imaging consistent with pneumonitis. However, respiratory viral panel has been negative. Pt being admitted for O2 supplementation and workup. -Admitted initially to [facility] with telemetry as well as isolation precautions due to HIV status and undiagnosed infection, then upgraded to PCU/ then ICU. -Source is likely PJP. -Broad-spectrum coverage with Zosyn, azithromycin, and PJP coverage with Bactrim. -Last CD4 value unknown -Supplemental oxygen as needed. -Rangel TB testing to be ordered -Mucinex twice daily -Incentive spirometry, flutter valve -DuoNeb every 4 hours as needed -Encourage smoking and vaping cessation -Nicotine patch applied -Agree with PJP treatment, continue corticosteroids -apppreciate input from ID. Appreciate input from pulm, -awaiting sputum cultures, PJP workup ordered. (2) Pneumonitis: Plan: Likely PJP pneumonia. -Noted on CTA of chest -Antibiotic coverage as above. -If symptoms are progressing and antibiotics are not providing relief, consider pulmonology consult. -CPAP/BiPAP as needed (3) HIV (human immunodeficiency virus infection): Plan: -Unknown previous CD4 count -CD4 level ordered -Antibiotic coverage as above -Rangel testing for TB as above -Continue home Biktarvy. Pt has to bring this from home as it is non-formulary (4) Drug abuse and dependence: Plan: -Patient sees [facility] for Suboxone -Patient has appointment tomorrow for refills, however, very unlikely to make this appointment -Suboxone twice daily ordered while inpatient. Patient appears to be in withdrawal will place on Librium taper, on 09/03 patient appears in more distress and patient was placed on precedex. (5) History of heroin abuse: Plan: -See above (6) HCV (hepatitis C virus): Plan: -noted. CMP ordered Plan Diet: Regular DVT prophylaxis: Lovenox Disposition: Admit to [facility] with telemetry, isolation precautions until work- up is complete CODE STATUS: Full code Admission and Anticipated Discharge Date Admission Date: September 01, 2022 Subjective Patient continues to feel SOb and is asking for his xanax. Patient feels that this new medicine (precedex) is not helping. Patient reorts feeling anxious and SOB Review of Systems Review of Systems: All systems reviewed & are unremarkable except as noted in HPI & below Physical Exam Physical Exam: Constitutional: WD/WN, vitals as above, appears in distress Eyes: + anicteric sclerae and PERRL ENMT: external ear and nose normal, oropharynx normal Neck: trachea midline, no thyromegaly Respiratory: Auscultation: + wheezes and + bronchial breath sounds, using accessory muscles to breath. Cardiovascular: RRR, no murmur, no edema Chest (Breasts): normal inspection/palpation of breasts Gastrointestinal (Abdomen): normal bowel sounds, soft, nontender, no hepatosplenomegaly Musculoskeletal: Head/Neck/Chest: normocephalic and head atraumatic Skin: excoriations on skin. Neurologic: moves all extremities Psychiatric: A+Ox3, euthymic affect Results & Data Results & Data Vital Signs (Past 12 Hours) Vital Signs Temp Pulse Pulse Resp BP Pulse Ox O2 Del Method 09/03/22 21:53 83 34 H 95 High Flow Nasal Cannula 09/03/22 20:00 High Flow Nasal Cannula 09/03/22 21:30 87 29 H 96 09/03/22 21:30 97/60 L 09/03/22 21:00 85 28 H 96 09/03/22 21:00 116/70 09/03/22 20:30 83 28 H 93 09/03/22 20:30 107/63 09/03/22 20:20 87 34 H 94 09/03/22 20:20 117/71 09/03/22 20:00 87 28 H 92 09/03/22 20:00 84 103/63 09/03/22 19:30 89 33 H 91 09/03/22 19:30 105/57 L 09/03/22 19:00 85 32 H 91 09/03/22 19:00 103/65 09/03/22 20:00 36.8 C 09/03/22 19:15 85 30 H 90 High Flow Nasal Cannula 09/03/22 18:40 85 32 H 92 09/03/22 18:32 101/63 09/03/22 18:32 86 38 H 94 09/03/22 18:31 91 H 32 H 92 09/03/22 18:30 91 H 24 95 09/03/22 18:20 83 27 H 93 09/03/22 18:10 82 29 H 93 09/03/22 18:00 83 28 H 92 09/03/22 18:00 105/65 09/03/22 17:50 86 28 H 94 09/03/22 17:40 86 28 H 93 09/03/22 17:30 88 30 H 92 09/03/22 17:30 117/64 09/03/22 17:20 87 29 H 92 09/03/22 17:10 89 28 H 91 09/03/22 17:00 88 29 H 92 09/03/22 17:00 119/70 09/03/22 16:50 90 30 H 92 09/03/22 16:40 90 26 H 91 09/03/22 16:30 90 27 H 91 09/03/22 16:30 108/60 09/03/22 16:20 91 H 25 H 90 09/03/22 16:10 94 H 27 H 89 L 09/03/22 16:00 95 H 27 H 90 09/03/22 16:00 112/61 09/03/22 15:50 94 H 29 H 90 09/03/22 15:40 96 H 28 H 95 09/03/22 16:00 90 09/03/22 15:30 97 H 30 H 100 09/03/22 15:30 125/71 09/03/22 15:20 97 H 27 H 84 L 09/03/22 15:10 87 23 90 09/03/22 15:00 86 38 H 94 09/03/22 15:00 110/68 09/03/22 14:50 75 34 H 95 09/03/22 14:40 76 31 H 92 09/03/22 14:49 36.7 C 09/03/22 14:38 74 28 H 92 High Flow Nasal Cannula 09/03/22 14:30 74 28 H 91 09/03/22 14:20 74 28 H 92 09/03/22 14:15 75 26 H 91 09/03/22 14:15 100/65 09/03/22 14:10 75 27 H 93 09/03/22 14:00 73 24 92 09/03/22 13:59 110/68 09/03/22 13:59 74 26 H 92 09/03/22 13:50 74 25 H 92 09/03/22 13:40 74 25 H 92 09/03/22 13:30 73 25 H 93 09/03/22 13:20 74 25 H 92 09/03/22 13:10 74 28 H 94 09/03/22 13:00 75 27 H 09/03/22 13:00 97/66 L 09/03/22 13:00 36.7 C 09/03/22 12:50 76 30 H 91 09/03/22 12:40 76 30 H 92 High Flow Nasal Cannula 09/03/22 12:32 80 26 H 97 High Flow Nasal Cannula 09/03/22 12:32 112/74 High Flow Nasal Cannula 09/03/22 12:30 86 39 H High Flow Nasal Cannula 09/03/22 12:20 79 23 96 High Flow Nasal Cannula 09/03/22 12:10 79 28 H 99 High Flow Nasal Cannula 09/03/22 12:00 80 21 100 High Flow Nasal Cannula 09/03/22 12:17 High Flow Nasal Cannula 09/03/22 11:50 80 31 H 98 High Flow Nasal Cannula 09/03/22 11:40 80 30 H 94 High Flow Nasal Cannula 09/03/22 11:30 81 25 H 92 High Flow Nasal Cannula 09/03/22 11:20 80 27 H 91 High Flow Nasal Cannula 09/03/22 11:10 80 32 H 91 09/03/22 11:00 79 31 H 93 High Flow Nasal Cannula 09/03/22 11:00 116/67 09/03/22 10:51 101/63 09/03/22 10:51 83 22 96 High Flow Nasal Cannula 09/03/22 10:50 78 22 96 Oxymask 09/03/22 11:02 87 24 91 High Flow Nasal Cannula O2 Flow Rate FiO2 09/03/22 21:53 30 85 09/03/22 20:00 09/03/22 21:30 09/03/22 21:30 09/03/22 21:00 09/03/22 21:00 09/03/22 20:30 09/03/22 20:30 09/03/22 20:20 09/03/22 20:20 09/03/22 20:00 09/03/22 20:00 09/03/22 19:30 09/03/22 19:30 09/03/22 19:00 09/03/22 19:00 09/03/22 20:00 09/03/22 19:15 30 85 09/03/22 18:40 09/03/22 18:32 09/03/22 18:32 09/03/22 18:31 09/03/22 18:30 09/03/22 18:20 09/03/22 18:10 09/03/22 18:00 09/03/22 18:00 09/03/22 17:50 09/03/22 17:40 09/03/22 17:30 09/03/22 17:30 09/03/22 17:20 09/03/22 17:10 09/03/22 17:00 09/03/22 17:00 09/03/22 16:50 09/03/22 16:40 09/03/22 16:30 09/03/22 16:30 09/03/22 16:20 09/03/22 16:10 09/03/22 16:00 09/03/22 16:00 09/03/22 15:50 09/03/22 15:40 09/03/22 16:00 09/03/22 15:30 09/03/22 15:30 09/03/22 15:20 09/03/22 15:10 09/03/22 15:00 09/03/22 15:00 09/03/22 14:50 09/03/22 14:40 09/03/22 14:49 09/03/22 14:38 40 80 09/03/22 14:30 09/03/22 14:20 09/03/22 14:15 09/03/22 14:15 09/03/22 14:10 09/03/22 14:00 09/03/22 13:59 09/03/22 13:59 09/03/22 13:50 09/03/22 13:40 09/03/22 13:30 09/03/22 13:20 09/03/22 13:10 09/03/22 13:00 09/03/22 13:00 09/03/22 13:00 09/03/22 12:50 09/03/22 12:40 40 80 09/03/22 12:32 40 80 09/03/22 12:32 40 80 09/03/22 12:30 40 80 09/03/22 12:20 40 80 09/03/22 12:10 40 80 09/03/22 12:00 40 90 09/03/22 12:17 09/03/22 11:50 4 90 09/03/22 11:40 4 90 09/03/22 11:30 40 90 09/03/22 11:20 40 80 09/03/22 11:10 09/03/22 11:00 40 80 09/03/22 11:00 09/03/22 10:51 09/03/22 10:51 40 80 09/03/22 10:50 15 09/03/22 11:02 40 80 PG Care Time/CCT Total # of Minutes Spent Total Time Spent with Patient: Total time spent is greater than 50% in coordination of care (as documented) at patient's floor/unit and/or counseling patient: Coding Level of Care Code 65334 SUB INP/OBS CARE 3/50MIN Diagnoses Hypoxia R09.02 Pneumonitis J18.9 HIV (human immunodeficiency virus infection) B20 Drug abuse and dependence F19.20 History of heroin abuse F11.11 HCV (hepatitis C virus) B19.20
--- NOTE | 2022-09-03 22:53 | Electrocardiogram Report ---
Test Reason : Blood Pressure : / mmHG Vent. Rate : 082 BPM Atrial Rate : 082 BPM P-R Int : 132 ms QRS Dur : 080 ms QT Int : 356 ms P-R-T Axes : 059 000 056 degrees QTc Int : 415 ms Normal sinus rhythm Normal ECG When compared with ECG of 17-JUL-2022 00:57, Questionable change in QRS axis Confirmed by Bruno Avalos ([id number]) on 09/03/2022 10:53:09 PM Referred By: REFERRED SELF Confirmed By:Bruno Avalos
[2022-09-04] MEDS: PIPERACILLIN/TAZOBACTAM 4.5 GM in DEXTROSE 5% 100 ML IV SCH ×3 (01:20→17:00)
[2022-09-04] MEDS: DEXTROSE 5% IV SCH ×2 (02:15→08:28)
[2022-09-04] MEDS: TRIMETH IV SCH ×2 (02:15→08:28)
[2022-09-04] MEDS: SULFA IV SCH ×2 (02:15→08:28)
[2022-09-04] MEDS: ALBUT/IPRATROP 3MG/0.5MG NEB 3 ML VIAL NEB PRN (02:23)
[2022-09-04] MEDS: dexMEDEtomidine 200 MCG/50 ML BAG IV SCH ×4 (05:01→22:59)
[2022-09-04] MEDS: FORMOTEROL 20 MCG/2 ML VIAL NEB SCH ×2 (07:03→20:06)
[2022-09-04] MEDS: BUDESONIDE 0.5 MG/2 ML VIAL (PULMICORT) NEB SCH ×2 (07:03→20:06)
--- NOTE | 2022-09-04 07:08 | XRay Report ---
XR chest 1V portable CLINICAL HISTORY: Hypoxia. COMPARISON STUDY: Chest CT September 01, 2022. Chest radiograph September 03, 2022. FINDINGS: Lung volumes are normal. No pneumothorax or pleural effusion is present. Cardiomediastinal silhouette is stable. Interstitial thickening in multifocal opacities are again noted. A focus of con solidation within the right mid to upper lung has slightly progressed. IMPRESSION: Slight progression of suspected multifocal pneumonia. ACT 112: Negative or not required by law. Electronically signed by: Jerry Carr M.D. 09/04/2022 7:06 AM
[2022-09-04 07:33] LABS: Hematocrit (blood only) 36.3 % (42.0-52.0); Hemoglobin 12.6 g/dl (14.0-18.0); Mean Corpuscular Hemoglobin 30.7 pg (25.0-34.0); Mean Corpuscular Hgb Conc 34.7 g/dL (32.0-36.0); Mean Corpuscular Volume 88.3 fL (80.0-100.0); Mean Platelet Volume 10.1 fL (9.4-12.4); Platelet Count 221 K/uL (130-400); RDW Coefficient of Variation 13.1 % (11.5-14.5); RDW Standard Deviation 42.5 fL (36.4-46.3); Red Blood Count 4.11 M/uL (4.70-6.10); White Blood Count 11.94 K/ul (4.8-10.8)
--- NOTE | 2022-09-04 07:36 | Hospitalist Progress Note ---
Date of Service September 04, 2022 Assessment & Plan (1) Hypoxia: Plan: Patient is a 32-year-old male with past medical history of HIV, hepatitis C, drug abuse and dependence, history of heroin abuse, and history of cocaine use who presented to the hospital for concern of dyspnea. Imaging consistent with pneumonitis. However, respiratory viral panel has been negative. acute respiratory failure secondary to viral pneumonitis, pt requiring High flow NC -Source is likely PJP. -Broad-spectrum coverage with Zosyn, azithromycin, and PJP coverage with Bactrim. -Last CD4 value unknown -Rangel TB testing to be ordered -DuoNeb every 4 hours as needed -Encourage smoking and vaping cessation -Nicotine patch applied -Infectious disease alliances consultant agrees with PJP treatment, continue corticosteroids -awaiting sputum cultures, PJP workup ordered. Patient had encephalopathy initially concern for withdrawal or substance abuse with needs to be surveyed for possible infectious etiologies of metabolic encephalopathy especially if CD4 count is low if patient not have resolution of this may consider lumbar puncture to rule out indolent NON DE[employer]UATION [employer]IST infections associated with immunosuppressed state (2) HIV (human immunodeficiency virus infection): Plan: -Unknown previous CD4 count-CD4 level ordered -Continue home Biktarvy. Pt has to bring this from home as it is non-formulary (3) Drug abuse and dependence: Plan: -Patient sees [facility] for Suboxone -Patient has appointment tomorrow for refills, however, very unlikely to make this appointment -Suboxone twice daily ordered while inpatient. Patient appears to be in withdrawal transitioned to ICU and on precedex If delirium or agitation continues consider infectious work-up (4) HCV (hepatitis C virus): Plan: -noted. CMP ordered Plan Diet: Regular DVT prophylaxis: Lovenox CODE STATUS: Full code Admission and Anticipated Discharge Date Admission Date: September 01, 2022 Subjective Patient much more calm on Precedex is able to cooperate did fall back to sleep more easily. Was oriented to place and person but not necessarily time Physical Exam Physical Exam: Patient had no respiratory distress he was on supplemental oxygen he has bilateral expiratory coarse wheezes in all lung moser he is not having any coughing or bringing up any mucus he did not have any nuchal rigidity and was able to move his neck easily Results & Data Results & Data Vital Signs (Past 12 Hours) Vital Signs Temp Pulse Pulse Resp BP Pulse Ox Pulse Ox 09/04/22 07:04 80 32 H 94 06/08/23 05:30 89 21 94 09/04/22 05:30 115/65 09/04/22 05:00 90 23 95 09/04/22 05:00 108/64 09/04/22 04:30 93 H 23 95 09/04/22 04:30 107/63 09/04/22 04:00 97 H 25 H 93 09/04/22 04:00 106/61 09/04/22 03:30 105 H 12 89 L 09/04/22 03:30 111/56 L 09/04/22 03:01 115 H 27 H 97 09/04/22 03:01 110/52 L 09/04/22 03:00 120 H 23 84 L 09/04/22 02:36 106/59 L 09/04/22 02:36 97 H 23 96 09/04/22 02:32 96/44 L 09/04/22 02:32 96 H 25 H 94 09/04/22 02:30 95 H 25 H 94 09/04/22 02:30 78/38 L 09/04/22 03:50 98.6 F 09/04/22 02:00 73 27 H 92 09/04/22 02:00 113/64 09/04/22 01:30 75 25 H 91 09/04/22 01:30 115/68 09/04/22 01:00 77 22 87 L 09/04/22 01:00 111/67 09/04/22 00:30 74 26 H 91 09/04/22 00:30 116/75 09/04/22 00:00 75 24 94 09/04/22 00:00 115/74 09/03/22 23:30 76 21 93 09/03/22 23:30 102/65 09/03/22 23:00 79 25 H 96 09/03/22 23:00 110/70 09/04/22 02:23 75 26 H 93 09/04/22 00:00 94 09/03/22 23:44 79 09/03/22 22:31 98/63 L 09/03/22 22:31 81 27 H 09/03/22 22:30 82 18 09/03/22 22:00 82 29 H 96 09/03/22 22:00 112/65 09/03/22 21:43 84 26 H 91 09/03/22 21:43 121/86 09/03/22 22:53 99.3 F 09/03/22 21:53 83 34 H 95 09/03/22 20:00 09/03/22 21:30 87 29 H 96 09/03/22 21:30 97/60 L 09/03/22 21:00 85 28 H 96 09/03/22 21:00 116/70 09/03/22 20:30 83 28 H 93 09/03/22 20:30 107/63 09/03/22 20:20 87 34 H 94 09/03/22 20:20 117/71 09/03/22 20:00 87 28 H 92 09/03/22 20:00 84 103/63 09/03/22 20:00 98.2 F O2 Del Method O2 Del Method O2 Flow Rate O2 Flow Rate FiO2 09/04/22 07:04 High Flow Nasal Cannula 50 95 09/04/22 05:30 09/04/22 05:30 09/04/22 05:00 09/04/22 05:00 09/04/22 04:30 09/04/22 04:30 09/04/22 04:00 09/04/22 04:00 09/04/22 03:30 09/04/22 03:30 09/04/22 03:01 09/04/22 03:01 09/04/22 03:00 09/04/22 02:36 09/04/22 02:36 09/04/22 02:32 09/04/22 02:32 09/04/22 02:30 09/04/22 02:30 09/04/22 03:50 09/04/22 02:00 09/04/22 02:00 09/04/22 01:30 09/04/22 01:30 09/04/22 01:00 09/04/22 01:00 09/04/22 00:30 09/04/22 00:30 09/04/22 00:00 09/04/22 00:00 09/03/22 23:30 09/03/22 23:30 09/03/22 23:00 09/03/22 23:00 09/04/22 02:23 High Flow Nasal Cannula 30 95 09/04/22 00:00 High Flow Nasal Cannula 30 09/03/22 23:44 09/03/22 22:31 09/03/22 22:31 09/03/22 22:30 09/03/22 22:00 09/03/22 22:00 09/03/22 21:43 09/03/22 21:43 09/03/22 22:53 09/03/22 21:53 High Flow Nasal Cannula 30 85 09/03/22 20:00 High Flow Nasal Cannula 09/03/22 21:30 09/03/22 21:30 09/03/22 21:00 09/03/22 21:00 09/03/22 20:30 09/03/22 20:30 09/03/22 20:20 09/03/22 20:20 09/03/22 20:00 09/03/22 20:00 09/03/22 20:00 Laboratory Results Reviewed CBC reviewed chemistry PG Care Time/CCT Total # of Minutes Spent Total Time Spent with Patient: Total time spent is greater than 50% in coordination of care (as documented) at patient's floor/unit and/or counseling patient: Coding Level of Care Code 32012 SUB INP/OBS CARE 3/50MIN Diagnoses Hypoxia R09.02 HIV (human immunodeficiency virus infection) B20 Drug abuse and dependence F19.20 HCV (hepatitis C virus) B19.20
[2022-09-04 08:04] LABS: Basophils # (auto) 0.01 K/uL (0-0.2); Basophils % (auto) 0.1 %; Echinocytes 1+; Immature Granulocytes # (auto) 0.04 K/uL (0.01-0.20); Immature Granulocytes % (auto) 0.3 %; Lymphocytes # (auto) 0.45 K/uL (1.2-3.4); Lymphocytes % (auto) 3.8 %; Monocytes # (auto) 0.56 K/uL (0.11-0.59); Monocytes % (auto) 4.7 %; Neutrophils # (auto) 10.88 K/uL (1.40-6.50); Neutrophils % (auto) 91.1 %
[2022-09-04] MEDS: BIKTARVY PO SCH (08:28)
[2022-09-04] MEDS: methylPREDNISolone 40 MG in SYRINGE 0 ML IV SCH ×3 (08:29→19:37)
[2022-09-04] MEDS: guaiFENesin 600 MG TABCR PO SCH ×2 (08:29→19:37)
[2022-09-04] MEDS: DOCUSATE SODIUM/SENNA 50/8.6MG TAB PO SCH (08:29)
[2022-09-04] MEDS: ENOXAPARIN INJ 40 MG/0.4 ML SYR SQ SCH (08:29)
[2022-09-04] MEDS: BUPRENORPHINE/NALOXONE 8/2 MG TAB SL SCH ×2 (08:29→19:37)
[2022-09-04] MEDS: POLYETHYLENE (MIRALAX) 17 GM PACK PO SCH (08:30)
[2022-09-04 08:54] LABS: Calcium 9.1 mg/dl (8.6-10.3); Magnesium 1.9 mg/dl (1.7-2.4); Potassium 4.3 mmol/L (3.5-5.1)
--- NOTE | 2022-09-04 08:54 | Critical Care Progress Note ---
Date of Service September 04, 2022 Assessment & Plan (1) 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): (2) Anxiety with agitation: (3) Pneumonitis: (4) HIV (human immunodeficiency virus infection): (5) Acute respiratory failure with hypoxia: (6) Wheezing: Plan 32-year-old male with a history of HIV, polysubstance abuse, vaping and severe anxiety with evidence of a EVALI and possible PJP. Due to increasing oxygen demands and increasing lethargy, will transfer the patient to the ICU for closer monitoring. May need to utilize Precedex drip. Low threshold for intubation and mechanical ventilation due to agitated delirium and hypoxia. -EVALI is a diagnosis of exclusion. Continue Solu-Medrol 40 mg, 3 times daily. Continue to wean high flow oxygen as able to maintain sats above 92%. -Treat empirically for PJP with Bactrim and IV steroids given history of HIV and diffuse groundglass opacities on CT chest. Follow CD4 counts and viral load. Appreciate ID consult. -Patient with probable withdrawal symptoms given agitated and anxious state. -Continue nebulizer treatments for severe bronchospasm. Continue nebulized budesonide along with nebulized formoterol. -Currently on isolation for possible scabies. -Hyponatremia likely secondary to D5 infusion with Bactrim. Follow labs closely. CRITICAL CARE TIME - I have personally spent 32 minutes of critical care time in the direct management of this patient. This is a life/limb threatening event. This includes time spent evaluating patient, direct bedside care, chart review, placing orders, interpretation of diagnostic studies, discussion with consultants, patient, and family members, as well as other required patient management activities. This time is exclusive of all separately billable procedures, and teaching time and separate from and in addition to any other critical care service time. Admission and Anticipated Discharge Date Admission Date: September 01, 2022 Subjective Patient seen and examined. Remains on low-dose Precedex infusion. Lethargic at times, but able to answer most questions appropriately. Remains on high flow oxygen. Denies any pain. Agitated at times and was agitated overnight. Sonido baptiste was called overnight. Review of Systems Review of Systems: All systems reviewed & are unremarkable except as noted in HPI & below Physical Exam Physical Exam: Constitutional: Patient appears to be of their stated age. Patient is in moderate distress. Patient is well-developed. Eyes: Pupils are equal round and reactive to light. Conjunctivae are normal. Anicteric sclera. Ears nose, mouth and throat: Mallampati class 2. Normal posterior oropharynx. Uvula is midline. Neck: Trachea is midline. Visual inspection is normal. Respiratory: Diffuse wheezing and rales. Mild tachypnea. Cardiovascular: Regular rate and rhythm. No murmurs. No edema. Gastrointestinal: Normal bowel sounds, soft, nontender and nondistended. No hepatosplenomegaly noted. Musculoskeletal: No cyanosis. Patient is able to move all extremities. Skin: No rashes, warm dry and intact. Neurologic: No obvious focal neurological deficits seen. Psychiatric: Severely anxious and agitated. Poor eye contact. Results & Data Results & Data Vital Signs (Past 12 Hours) Vital Signs Temp Pulse Pulse Resp BP Pulse Ox Pulse Ox 09/04/22 07:04 80 32 H 94 09/04/22 05:30 89 21 94 09/04/22 05:30 115/65 09/04/22 05:00 90 23 95 09/04/22 05:00 108/64 09/04/22 04:30 93 H 23 95 09/04/22 04:30 107/63 09/04/22 04:00 97 H 25 H 93 09/04/22 04:00 106/61 09/04/22 03:30 105 H 12 89 L 09/04/22 03:30 111/56 L 09/04/22 03:01 115 H 27 H 97 09/04/22 03:01 110/52 L 09/04/22 03:00 120 H 23 84 L 09/04/22 02:36 106/59 L 09/04/22 02:36 97 H 23 96 09/04/22 02:32 96/44 L 09/04/22 02:32 96 H 25 H 94 09/04/22 02:30 95 H 25 H 94 09/04/22 02:30 78/38 L 09/04/22 03:50 37.0 C 09/04/22 02:00 73 27 H 92 09/04/22 02:00 113/64 09/04/22 01:30 75 25 H 91 09/04/22 01:30 115/68 09/04/22 01:00 77 22 87 L 09/04/22 01:00 111/67 06/08/23 00:30 74 26 H 91 09/04/22 00:30 116/75 09/04/22 00:00 75 24 94 09/04/22 00:00 115/74 09/03/22 23:30 76 21 93 09/03/22 23:30 102/65 09/03/22 23:00 79 25 H 96 09/03/22 23:00 110/70 09/04/22 02:23 75 26 H 93 09/04/22 00:00 94 09/03/22 23:44 79 09/03/22 22:31 98/63 L 09/03/22 22:31 81 27 H 09/03/22 22:30 82 18 09/03/22 22:00 82 29 H 96 09/03/22 22:00 112/65 09/03/22 21:43 84 26 H 91 09/03/22 21:43 121/86 09/03/22 22:53 37.4 C 09/03/22 21:53 83 34 H 95 09/03/22 21:30 87 29 H 96 09/03/22 21:30 97/60 L 09/03/22 21:00 85 28 H 96 09/03/22 21:00 116/70 O2 Del Method O2 Del Method O2 Flow Rate O2 Flow Rate FiO2 09/04/22 07:04 High Flow Nasal Cannula 50 95 09/04/22 05:30 09/04/22 05:30 09/04/22 05:00 09/04/22 05:00 09/04/22 04:30 09/04/22 04:30 09/04/22 04:00 09/04/22 04:00 09/04/22 03:30 09/04/22 03:30 09/04/22 03:01 09/04/22 03:01 09/04/22 03:00 09/04/22 02:36 09/04/22 02:36 09/04/22 02:32 09/04/22 02:32 09/04/22 02:30 09/04/22 02:30 09/04/22 03:50 09/04/22 02:00 09/04/22 02:00 09/04/22 01:30 09/04/22 01:30 09/04/22 01:00 09/04/22 01:00 09/04/22 00:30 09/04/22 00:30 09/04/22 00:00 09/04/22 00:00 09/03/22 23:30 09/03/22 23:30 09/03/22 23:00 09/03/22 23:00 09/04/22 02:23 High Flow Nasal Cannula 30 95 09/04/22 00:00 High Flow Nasal Cannula 30 09/03/22 23:44 09/03/22 22:31 09/03/22 22:31 09/03/22 22:30 09/03/22 22:00 09/03/22 22:00 09/03/22 21:43 09/03/22 21:43 09/03/22 22:53 09/03/22 21:53 High Flow Nasal Cannula 30 85 09/03/22 21:30 09/03/22 21:30 09/03/22 21:00 09/03/22 21:00 Coding Level of Care Code 58690 CRITICAL CARE 1ST 30-74M Diagnoses 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) U07.0 Anxiety with agitation F41.9; R45.1 Pneumonitis J18.9 HIV (human immunodeficiency virus infection) B20 Acute respiratory failure with hypoxia J96.01 Wheezing R06.2 Time Spent (min) 32
[2022-09-04 08:59] LABS: BUN Creatinine Ratio 20.5 (10-20); Creatinine Clr Calc Pharmacy 110.8 ml/min; Est GFR (African American) 133.6 ml/min; Est GFR (Non-African American) 115.3 ml/min
[2022-09-04] MEDS: SODIUM CHLORIDE 0.9% 1000ML 1,000 ML IV SCH ×2 (11:22→22:59)
--- NOTE | 2022-09-04 13:02 | Infectious Disease Progress Nt ---
Date of Service September 04, 2022 24 hours Transferred to ICU for precedex Micro workup P Culture no growth thus far CD4 Pending Assessment & Plan (1) Wheezing: (2) Acute respiratory failure with hypoxia: (3) HIV (human immunodeficiency virus infection): (4) HCV (hepatitis C virus): (5) Cocaine abuse: Plan #Pneumonia with GGO #HIV #Hepatitis C #Drug use #LE rash 32 yo M with h/o HIV on Biktarvy, hepatitis C, drug abuse and dependence, history of heroin abuse, and history of cocaine use who presented to the hospital for concern of dyspnea on 09/01. Infectious diseases consulted for HIV and pneumonia. Patient p/w nonproductive and SOB over past 3 days [employer]. Notably he is on Suboxone. Regarding his HIV, he is on Biktarvy and is undetectable and normal CD4 but unable to give numbers. Risk factors: currently smokes/vapes, no sick contacts, no new travel o new rashes. On admission, vitals stable. Initial labs remarkable for white count 12.38 with a neutrophilic predominance, relatively normal chemistry, lactate dehydrogenase at 350, procalcitonin negative. Viral PCR panel negative for all viruses on panel. COVID-negative. Diagnostic imaging included an x-ray and chest CTA both of which are indicative of pneumonitis suspicious for viral etiology. CTA showed GGO. Patient was started on Zosyn, azithromycin, and Bactrim. Patient was incarcerated for 3 years and released 7 months ago, He states he started Biktarvy Discussion: Patient with u/k CD4, VL, additional risk factors, outdoor landscaping, poor hygiene, incarceration about 7 months ago. GGO on imaging in setting of HIV make PJP very likely possibility but typically subacute. He is on IV Bactrim, agree with corticosteroids. May be able to do oral Bactrim and oral prednisone given he can take oral but will monitor oxygenation o/n. PJP PCR pending, BDG serum pending, will check aspergillus antigen. Viral panel is negative. Check MRSA pcr. Exam is concerning for scabies Recommend 1. pneumonia - Follow PJP PCR, BDG, Aspergillus antigen Risk for TB but imaging and presentation not c/w TB - no nodules or cavitary lesions C/W Zosyn, azithromycin 2. Empiric treatment for PJP, changed po Bactrim DS 2 Tabs TID and Solumedrol for coverage of both PJP and EVALI Day 3 3. HIV, AIDS? Check CD4, VL, check RPR--> pending Continue Biktarvy 4. Possible scabies - permethrin ordered, patient in isolation 5. Currently in ICU given higher oxygenation needs and lethargy possible need for precedex per ICU - some concern for EVALI is a diagnosis of exclusion. Continue Solu- Medrol ID will follow Infectious Diseases Yaritza Sal MD Admission and Anticipated Discharge Date Admission Date: September 01, 2022 Subjective This patient recommendation is based on a telemedicine consult request which was completed asynchronously through chart review and information provided by the primary physician. The patient was not seen or examined today. The evaluation is consultative in nature and all patient care and treatment decisions can either be accepted or rejected by the patient's primary hospital-based treating physician using their own independent medical judgment for their patient. Time Spent Reviewing Chart: 21 - 30 minutes Results & Data Vital Signs (Past 12 Hours) Vital Signs Temp Pulse Pulse Resp BP Pulse Ox Pulse Ox 09/04/22 10:20 84 20 91 09/04/22 08:00 09/04/22 08:00 36.9 C 94 09/04/22 08:00 94 09/04/22 08:00 89 09/04/22 07:04 80 32 H 94 09/04/22 05:30 89 21 94 09/04/22 05:30 115/65 09/04/22 05:00 90 23 95 09/04/22 05:00 108/64 09/04/22 04:30 93 H 23 95 09/04/22 04:30 107/63 09/04/22 04:00 97 H 25 H 93 09/04/22 04:00 106/61 09/04/22 03:30 105 H 12 89 L 09/04/22 03:30 111/56 L 09/04/22 03:01 115 H 27 H 97 09/04/22 03:01 110/52 L 09/04/22 03:00 120 H 23 84 L 09/04/22 02:36 106/59 L 09/04/22 02:36 97 H 23 96 09/04/22 02:32 96/44 L 09/04/22 02:32 96 H 25 H 94 09/04/22 02:30 95 H 25 H 94 09/04/22 02:30 78/38 L 09/04/22 03:50 37.0 C 09/04/22 02:00 73 27 H 92 09/04/22 02:00 113/64 09/04/22 01:30 75 25 H 91 09/04/22 01:30 115/68 09/04/22 02:23 75 26 H 93 O2 Del Method O2 Del Method O2 Flow Rate O2 Flow Rate FiO2 09/04/22 10:20 High Flow Nasal Cannula 25 65 09/04/22 08:00 High Flow Nasal Cannula 25 70 09/04/22 08:00 High Flow Nasal Cannula 30 65 09/04/22 08:00 High Flow Nasal Cannula 25 09/04/22 08:00 09/04/22 07:04 High Flow Nasal Cannula 50 95 09/04/22 05:30 09/04/22 05:30 09/04/22 05:00 09/04/22 05:00 09/04/22 04:30 09/04/22 04:30 09/04/22 04:00 09/04/22 04:00 09/04/22 03:30 09/04/22 03:30 09/04/22 03:01 09/04/22 03:01 09/04/22 03:00 09/04/22 02:36 09/04/22 02:36 09/04/22 02:32 09/04/22 02:32 09/04/22 02:30 09/04/22 02:30 09/04/22 03:50 09/04/22 02:00 09/04/22 02:00 09/04/22 01:30 09/04/22 01:30 09/04/22 02:23 High Flow Nasal Cannula 30 95 Laboratory Results Laboratory Results - last 48 hr 09/02/22 09/03/22 09/03/22 09:01 09:14 09:14 WBC 12.99 H RBC 4.16 L Hgb 12.8 L Hct 37.0 L MCV 88.9 MCH 30.8 MCHC 34.6 RDW Std Deviation 42.7 RDW Coeff of Estelle 13.2 Plt Count 210 MPV 9.9 Immature Gran % (Auto) Neut % (Auto) Lymph % (Auto) Marshall % (Auto) Eos % (Auto) Baso % (Auto) Neut # (Auto) Lymph # (Auto) Marshall # (Auto) Eos # (Auto) Baso # (Auto) Immature Gran # (Auto) Echinocytes Sodium 133 L Potassium 4.3 Chloride 102 Carbon Dioxide 21 Anion Gap 10 BUN 18 Creatinine 0.83 Est Cr Clr Drug Dosing 117.4 Est GFR ( Amer) 136.8 Est GFR (Non-Af Amer) 118.1 BUN/Creatinine Ratio 21.7 H Glucose 169 H Calcium 9.0 Phosphorus Magnesium C-Reactive Protein 13.66 H 15.44 H Urine Color Urine Appearance Urine pH Ur Specific [place] Urine Protein Urine Glucose (UA) Urine Ketones Urine Blood Urine Nitrite Urine Bilirubin Urine Urobilinogen Ur Leukocyte Esterase Nasal Screen MRSA (PCR) Urine Opiates Screen Ur Methadone, Qual Urine Barbiturates Ur Phencyclidine (PCP) U Amphetamin/Meth Scrn MDMA (Ecstasy) Screen U Benzodiazepines Scrn Ur Cocaine Metabolite U Marijuana (THC) Screen 09/03/22 09/03/22 09/03/22 22:27 Unknown Unknown WBC RBC Hgb Hct MCV MCH MCHC RDW Std Deviation RDW Coeff of Estelle Plt Count MPV Immature Gran % (Auto) Neut % (Auto) Lymph % (Auto) Marshall % (Auto) Eos % (Auto) Baso % (Auto) Neut # (Auto) Lymph # (Auto) Marshall # (Auto) Eos # (Auto) Baso # (Auto) Immature Gran # (Auto) Echinocytes Sodium 133 L Potassium Chloride Carbon Dioxide Anion Gap BUN Creatinine Est Cr Clr Drug Dosing Est GFR ( Amer) Est GFR (Non-Af Amer) BUN/Creatinine Ratio Glucose Calcium Phosphorus Magnesium C-Reactive Protein Urine Color Yellow Urine Appearance Clear Urine pH 6.5 Ur Specific [place] 1.010 Urine Protein Negative Urine Glucose (UA) Negative Urine Ketones Negative Urine Blood Negative Urine Nitrite Negative Urine Bilirubin Negative Urine Urobilinogen Negative Ur Leukocyte Esterase Negative Nasal Screen MRSA (PCR) Negative Urine Opiates Screen Ur Methadone, Qual Urine Barbiturates Ur Phencyclidine (PCP) U Amphetamin/Meth Scrn MDMA (Ecstasy) Screen U Benzodiazepines Scrn Ur Cocaine Metabolite U Marijuana (THC) Screen 09/03/22 09/04/22 09/04/22 Unknown 07:12 07:12 WBC 11.94 H RBC 4.11 L Hgb 12.6 L Hct 36.3 L MCV 88.3 MCH 30.7 MCHC 34.7 RDW Std Deviation 42.5 RDW Coeff of Estelle 13.1 Plt Count 221 MPV 10.1 Immature Gran % (Auto) 0.3 Neut % (Auto) 91.1 Lymph % (Auto) 3.8 Marshall % (Auto) 4.7 Eos % (Auto) 0.0 Baso % (Auto) 0.1 Neut # (Auto) 10.88 H Lymph # (Auto) 0.45 L Marshall # (Auto) 0.56 Eos # (Auto) 0.00 Baso # (Auto) 0.01 Immature Gran # (Auto) 0.04 Echinocytes 1+ Sodium 135 L Potassium 4.3 Chloride 103 Carbon Dioxide 20 L Anion Gap 12 H BUN 18 Creatinine 0.88 Est Cr Clr Drug Dosing 110.8 Est GFR ( Amer) 133.6 Est GFR (Non-Af Amer) 115.3 BUN/Creatinine Ratio 20.5 H Glucose 136 H Calcium 9.1 Phosphorus 3.0 Magnesium 1.9 C-Reactive Protein Urine Color Urine Appearance Urine pH Ur Specific [place] Urine Protein Urine Glucose (UA) Urine Ketones Urine Blood Urine Nitrite Urine Bilirubin Urine Urobilinogen Ur Leukocyte Esterase Nasal Screen MRSA (PCR) Urine Opiates Screen Neg Ur Methadone, Qual Neg Urine Barbiturates Neg Ur Phencyclidine (PCP) Neg U Amphetamin/Meth Scrn Neg MDMA (Ecstasy) Screen Neg U Benzodiazepines Scrn Pos H Ur Cocaine Metabolite Neg U Marijuana (THC) Screen Pos H Microbiology 09/02/22 Unknown Sputum, Expectorated Gram Stain - Final 09/02/22 Unknown Sputum, Expectorated Sputum Culture - Final Light normal isa. 09/01/22 20:15 Blood Aerobic Blood Culture - Preliminary No growth in Aerobic bottle after 48 hours. 09/01/22 20:15 Blood Anaerobic Blood Culture - Preliminary No growth in Anaerobic bottle after 48 hours. 09/01/22 19:35 Blood Aerobic Blood Culture - Preliminary No growth in Aerobic bottle after 48 hours. 09/01/22 19:35 Blood Anaerobic Blood Culture - Preliminary No growth in Anaerobic bottle after 48 hours. Medications Administered Current Inpatient Medications Acetaminophen (Acetaminophen 325 Mg Tab) 650 mg PO Q4H PRN PRN Reason: Pain or Fever Stop: 10/02/22 00:40 Albuterol (Albut/Ipratrop 3mg/0.5mg Neb 3 Ml Vial) 3 ml NEB Q4R PRN; Protocol PRN Reason: Shortness Of Breath Or Wheezing Stop: 10/02/22 02:59 Last Admin: 09/04/22 02:23 Dose: 3 ml Bictegravir/Emtricitabine/Tenofovir (Biktarvy) 1 each PO DAILY [facility] Stop: 10/04/22 08:59 Last Admin: 09/04/22 08:28 Dose: 1 each Budesonide (Budesonide 0.5 Mg/2 Ml Vial (Pulmicort)) 0.5 mg NEB BIDR [facility] Stop: 10/02/22 18:59 Last Admin: 09/04/22 07:03 Dose: 0.5 mg Buprenorphine/Naloxone (Buprenorphine/Naloxone 8/2 Mg Tab) 1 tab SL BID [facility] Stop: 10/02/22 08:59 Last Admin: 09/04/22 08:29 Dose: 1 tab Enoxaparin Sodium (Enoxaparin Inj 40 Mg/0.4 Ml Syr) 40 mg SQ DAILY [facility] Stop: 10/02/22 08:59 Last Admin: 09/04/22 08:29 Dose: Not Given Famotidine (Famotidine 20 Mg Tab) 20 mg PO BID [facility] Stop: 10/04/22 20:59 Formoterol Fumarate (Formoterol 20 Mcg/2 Ml Vial) 20 mcg NEB BIDR [facility] Stop: 10/02/22 18:59 Last Admin: 09/04/22 07:03 Dose: 20 mcg Guaifenesin (Guaifenesin 600 Mg Tabcr) 600 mg PO Q12 [facility] Stop: 10/02/22 08:59 Last Admin: 09/04/22 08:29 Dose: 600 mg Piperacillin Sod/Tazobactam (Sod 4.5 gm/ Dextrose) 120 mls @ 30 mls/hr IV Q8H [facility]; Protocol Stop: 09/09/22 01:59 Last Admin: 09/04/22 11:25 Dose: 30 mls/hr Azithromycin 500 mg/ Dextrose 255 mls @ 125 mls/hr IV Q24H [facility] Stop: 09/09/22 19:59 Last Infusion: 09/03/22 22:48 Dose: Infused Methylprednisolone 40 mg/ (Syringe) 0.64 mls @ 1.5 mls/min IV TID [facility] Stop: 10/02/22 13:59 Last Admin: 09/04/22 08:29 Dose: 1.5 mls/min Dexmedetomidine/Sodium Chloride (Precedex) 200 mcg in 50 mls @ 5.445 mls/hr IV .Q9H11M [facility]; Protocol Stop: 09/07/22 11:14 Last Titration: 09/04/22 09:51 Dose: 0.3 mcg/kg/hr, 5.4 mls/hr Sodium Chloride (Nss 1000ml) 1,000 mls @ 80 mls/hr IV .[id number] [facility] Stop: 10/04/22 09:59 Last Admin: 09/04/22 11:22 Dose: 80 mls/hr Miscellaneous (Remove Nicoderm Patch) 1 each N/A DAILY@0859 [facility] Stop: 10/02/22 08:58 Last Admin: 09/04/22 08:28 Dose: 1 each Nicotine (Nicotine 21 Mg/24 Hr Tdsy) 21 mg TD DAILY@2100 [facility] Stop: 10/02/22 20:39 Last Admin: 09/03/22 20:41 Dose: Not Given Ondansetron HCl (Ondansetron Inj 2 Mg/Ml 2 Ml Vial) 4 mg IV Q6H PRN PRN Reason: Nausea Stop: 10/02/22 00:40 Polyethylene Glycol (Polyethylene (Miralax) 17 Gm Pack) 17 gm PO DAILY [facility] Stop: 10/02/22 12:44 Last Admin: 09/04/22 08:30 Dose: Not Given Senna/Docusate Sodium (Docusate Sodium/Senna 50/8.6mg Tab) 1 tab PO QAM [facility] Stop: 10/02/22 12:44 Last Admin: 09/04/22 08:29 Dose: 1 tab Trimethoprim/Sulfamethoxazole (Sulfamethoxazole/Trimethoprim Ds 800/160mg Tab) 2 tab PO Q8H [facility] Stop: 09/11/22 15:59
[2022-09-04 15:43] LABS: Quantiferon Mitogen-NIL >10.00 IU/mL; Quantiferon NIL 0.03 IU/mL; Quantiferon TB Gold Plus NEGATIVE (NEGATIVE); Quantiferon TB2-NIL <0.00 IU/mL
[2022-09-04] MEDS ORDERED: chlordiazePOXIDE HCl 25 MG CAP PO SCH (16:00)
[2022-09-04] MEDS: SULFAMETHOXAZOLE/TRIMETHOPRIM DS 800/160MG TAB PO SCH ×2 (16:57→23:01)
[2022-09-04] MEDS: NICOTINE 21 MG/24 HR TDSY TD SCH (19:37)
[2022-09-04] MEDS: FAMOTIDINE 20 MG TAB PO SCH (19:37)
[2022-09-04] MEDS: AZITHROMYCIN 500 MG in DEXTROSE 5% 250 ML IV SCH (19:38)
[2022-09-05] MEDS: PIPERACILLIN/TAZOBACTAM 4.5 GM in DEXTROSE 5% 100 ML IV SCH ×3 (00:48→17:42)
[2022-09-05 05:06] LABS: Basophils # (auto) 0.01 K/uL (0-0.2); Basophils % (auto) 0.1 %; Hematocrit (blood only) 38.2 % (42.0-52.0); Hemoglobin 12.8 g/dl (14.0-18.0); Immature Granulocytes # (auto) 0.07 K/uL (0.01-0.20); Immature Granulocytes % (auto) 0.5 %; Lymphocytes # (auto) 0.63 K/uL (1.2-3.4); Lymphocytes % (auto) 4.9 %; Mean Corpuscular Hemoglobin 30.3 pg (25.0-34.0); Mean Corpuscular Hgb Conc 33.5 g/dL (32.0-36.0); Mean Corpuscular Volume 90.5 fL (80.0-100.0); Mean Platelet Volume 9.9 fL (9.4-12.4); Monocytes # (auto) 0.71 K/uL (0.11-0.59); Monocytes % (auto) 5.6 %; Neutrophils # (auto) 11.37 K/uL (1.40-6.50); Neutrophils % (auto) 88.9 %; Platelet Count 225 K/uL (130-400); RDW Coefficient of Variation 13.2 % (11.5-14.5); RDW Standard Deviation 43.7 fL (36.4-46.3); Red Blood Count 4.22 M/uL (4.70-6.10); White Blood Count 12.79 K/ul (4.8-10.8)
[2022-09-05 05:24] LABS: BUN Creatinine Ratio 19.2 (10-20); Calcium 9.1 mg/dl (8.6-10.3); Creatinine Clr Calc Pharmacy 133.5 ml/min; Est GFR (African American) 144.3 ml/min; Est GFR (Non-African American) 124.5 ml/min; Magnesium 1.8 mg/dl (1.7-2.4); Phosphorus 3.7 mg/dl (2.5-4.9); Potassium 4.8 mmol/L (3.5-5.1)
[2022-09-05] MEDS: dexMEDEtomidine 200 MCG/50 ML BAG IV SCH (05:25)
[2022-09-05] MEDS: BUDESONIDE 0.5 MG/2 ML VIAL (PULMICORT) NEB SCH ×2 (06:58→20:00)
[2022-09-05] MEDS: FORMOTEROL 20 MCG/2 ML VIAL NEB SCH ×2 (06:59→20:00)
--- NOTE | 2022-09-05 08:24 | Critical Care Progress Note ---
Date of Service September 05, 2022 Assessment & Plan (1) 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): (2) Anxiety with agitation: (3) Pneumonitis: (4) HIV (human immunodeficiency virus infection): (5) Acute respiratory failure with hypoxia: (6) Wheezing: (7) Drug abuse and dependence: Plan 32-year-old male with a history of HIV, polysubstance abuse, vaping and severe anxiety with evidence of a EVALI and possible PJP. Due to increasing oxygen demands and increasing lethargy, will transfer the patient to the ICU for closer monitoring. May need to utilize Precedex drip. Low threshold for intubation and mechanical ventilation due to agitated delirium and hypoxia. -EVALI is a diagnosis of exclusion. Continue Solu-Medrol 40 mg, 3 times daily. Continue to wean high flow oxygen as able to maintain sats above 92%. High flow requirements have improved over the past 2 days. Obtain chest x-ray today. Chest x-ray from yesterday with persistent pneumonitis. -Treat empirically for PJP with Bactrim and IV steroids given history of HIV and diffuse groundglass opacities on CT chest. Otherwise continue broad-spectrum antibiotics per ID recommendation. Follow CD4 counts and viral load. Appreciate ID consult. -Awaiting PJP DFA from sputum, Fungitell. QuantiFERON gold negative. -Continue home dose Suboxone. -Continue HIV antivirals per ID. -Patient with probable withdrawal symptoms given agitated and anxious state. Wean Precedex infusion. -Continue nebulizer treatments for severe bronchospasm. Continue nebulized budesonide along with nebulized formoterol. -Currently on isolation for possible scabies. -Hyponatremia stable. Advance diet to regular. -Pepcid for GI prophylaxis. -Lovenox for VTE prophylaxis. CRITICAL CARE TIME - I have personally spent 33 minutes of critical care time in the direct management of this patient. This is a life/limb threatening event. This includes time spent evaluating patient, direct bedside care, chart review, placing orders, interpretation of diagnostic studies, discussion with consultants, patient, and family members, as well as other required patient management activities. This time is exclusive of all separately billable procedures, and teaching time and separate from and in addition to any other critical care service time. Admission and Anticipated Discharge Date Admission Date: September 01, 2022 Subjective Patient seen and examined. Remains mildly sedated due to ongoing Precedex drip. He did have an anxiety attack overnight, but that improved with reassurance. Otherwise he remains on 60% FiO2 and 20 L/min of high flow oxygen. Saturations in the low 90s. Review of Systems Review of Systems: All systems reviewed & are unremarkable except as noted in HPI & below Physical Exam Physical Exam: Constitutional: Patient appears to be of their stated age. Patient is in mild distress. Patient is well-developed. Eyes: Pupils are equal round and reactive to light. Conjunctivae are normal. Anicteric sclera. Ears nose, mouth and throat: Mallampati class 2. Normal posterior oropharynx. Uvula is midline. Neck: Trachea is midline. Visual inspection is normal. Respiratory: Diffuse wheezing and rales. Mild tachypnea. Cardiovascular: Regular rate and rhythm. No murmurs. No edema. Gastrointestinal: Normal bowel sounds, soft, nontender and nondistended. No hepatosplenomegaly noted. Musculoskeletal: No cyanosis. Patient is able to move all extremities. Skin: No rashes, warm dry and intact. Neurologic: No obvious focal neurological deficits seen. Psychiatric: Severely anxious and agitated. Poor eye contact. Results & Data Results & Data Vital Signs (Past 12 Hours) Vital Signs Temp Pulse Pulse Resp BP BP Pulse Ox 09/05/22 08:00 09/05/22 08:00 36.6 C 98 H 22 148/96 H 94 09/05/22 08:00 09/05/22 08:00 09/05/22 08:00 77 09/05/22 06:59 72 18 92 09/05/22 06:00 77 22 91 09/05/22 06:00 114/75 09/05/22 05:30 75 29 H 94 09/05/22 05:00 74 25 H 95 09/05/22 05:00 119/73 09/05/22 04:30 74 24 91 09/05/22 04:00 76 23 92 09/05/22 04:00 117/79 09/05/22 03:30 82 18 92 09/05/22 03:00 75 23 93 09/05/22 03:00 120/81 09/05/22 02:30 83 17 94 09/05/22 02:00 73 24 92 09/05/22 02:00 124/66 09/05/22 01:30 75 27 H 93 09/05/22 01:00 75 25 H 91 09/05/22 01:00 129/75 09/05/22 00:30 75 25 H 91 09/05/22 05:35 74 26 H 91 09/05/22 01:34 75 25 H 93 09/05/22 01:17 09/05/22 00:00 73 17 92 09/05/22 00:00 122/77 09/04/22 23:30 77 30 H 94 09/04/22 23:00 76 19 92 09/04/22 23:00 116/81 09/04/22 22:30 78 23 94 09/04/22 22:00 80 26 H 93 09/04/22 22:00 126/72 09/04/22 21:30 81 23 94 09/04/22 21:00 81 23 94 09/04/22 21:00 118/74 09/04/22 20:30 80 27 H 90 09/05/22 00:00 74 Pulse Ox O2 Del Method O2 Del Method O2 Flow Rate O2 Flow Rate FiO2 09/05/22 08:00 High Flow Nasal Cannula 20 60 09/05/22 08:00 High Flow Nasal Cannula 20 60 09/05/22 08:00 92 High Flow Nasal Cannula 20 09/05/22 08:00 High Flow Nasal Cannula 60 09/05/22 08:00 09/05/22 06:59 High Flow Nasal Cannula 20 60 09/05/22 06:00 09/05/22 06:00 09/05/22 05:30 09/05/22 05:00 09/05/22 05:00 09/05/22 04:30 09/05/22 04:00 09/05/22 04:00 09/05/22 03:30 09/05/22 03:00 09/05/22 03:00 09/05/22 02:30 09/05/22 02:00 09/05/22 02:00 09/05/22 01:30 09/05/22 01:00 09/05/22 01:00 09/05/22 00:30 09/05/22 05:35 High Flow Nasal Cannula 20 60 09/05/22 01:34 High Flow Nasal Cannula 20 60 09/05/22 01:17 High Flow Nasal Cannula 20 0.60 09/05/22 00:00 09/05/22 00:00 09/04/22 23:30 09/04/22 23:00 09/04/22 23:00 09/04/22 22:30 09/04/22 22:00 09/04/22 22:00 09/04/22 21:30 09/04/22 21:00 09/04/22 21:00 09/04/22 20:30 09/05/22 00:00 Coding Level of Care Code 72431 CRITICAL CARE 1ST 30-74M Diagnoses 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) U07.0 Anxiety with agitation F41.9; R45.1 Pneumonitis J18.9 HIV (human immunodeficiency virus infection) B20 Acute respiratory failure with hypoxia J96.01 Wheezing R06.2 Drug abuse and dependence F19.20 Time Spent (min) 33
[2022-09-05] MEDS: ENOXAPARIN INJ 40 MG/0.4 ML SYR SQ SCH (08:46)
[2022-09-05] MEDS: BUPRENORPHINE/NALOXONE 8/2 MG TAB SL SCH ×2 (08:46→19:28)
[2022-09-05] MEDS: methylPREDNISolone 40 MG in SYRINGE 0 ML IV SCH (08:46)
[2022-09-05] MEDS: SULFAMETHOXAZOLE/TRIMETHOPRIM DS 800/160MG TAB PO SCH ×3 (08:46→23:40)
[2022-09-05] MEDS: BIKTARVY PO SCH (08:46)
[2022-09-05] MEDS: DOCUSATE SODIUM/SENNA 50/8.6MG TAB PO SCH (08:46)
[2022-09-05] MEDS: POLYETHYLENE (MIRALAX) 17 GM PACK PO SCH (08:47)
[2022-09-05] MEDS: FAMOTIDINE 20 MG TAB PO SCH ×2 (08:47→19:30)
[2022-09-05] MEDS: guaiFENesin 600 MG TABCR PO SCH ×2 (08:47→19:31)
--- NOTE | 2022-09-05 08:56 | XRay Report ---
XR chest 1V portable HISTORY: 32 years-old Male hypoxia acute hypoxia COMPARISON: 09/04/2022 TECHNIQUE: AP view of the chest FINDINGS: Cardiomediastinal and hilar silhouettes are unchanged. Interstitial coarsening with ill-defined bilat eral airspace opacities, generally stable from yesterday's study. No pneumothorax or pleural effusion . The bones appear normal. IMPRESSION: Stable bilateral pulmonary opacities suggestive of multifocal pneumonia. ACT 112: Negative or not required by law. The above report was generated using voice recognition software. It may contain grammatical, syntax o r spelling errors. Electronically signed by: Eduardo Meyers M.D. 09/05/2022 8:55 AM
[2022-09-05] MEDS: NICOTINE 21 MG/24 HR TDSY TD SCH (10:53)
[2022-09-05] MEDS: GABAPENTIN 600 MG TAB PO SCH ×2 (10:54→19:29)
[2022-09-05] MEDS ORDERED: LORazepam 1 MG TAB PO STA ×2 (15:15→20:39)
--- NOTE | 2022-09-05 16:47 | Hospitalist Progress Note ---
Date of Service September 05, 2022 Assessment & Plan (1) Hypoxia: Plan: Patient is a 32-year-old male with past medical history of HIV, hepatitis C, drug abuse and dependence, history of heroin abuse, and history of cocaine use who presented to the hospital for concern of dyspnea. Imaging consistent with pneumonitis. However, respiratory viral panel has been negative. acute respiratory failure secondary to viral pneumonitis, versus EVALI pt requiring High flow NC -Source may be pneumonitis from EVALI versus PJP. -Broad-spectrum coverage with Zosyn, azithromycin, and PJP coverage with Bactrim. -Last CD4 value unknown -Rangel TB testing to be ordered -DuoNeb every 4 hours as needed -Encourage smoking and vaping cessation -Nicotine patch applied -Infectious disease health analytics consultant agrees with PJP treatment, continue corticosteroids -awaiting sputum cultures, PJP workup ordered. Patient cephalopathy is improved need for lumbar puncture (2) HIV (human immunodeficiency virus infection): Plan: -Unknown previous CD4 count-CD4 level ordered -Continue home Biktarvy. Pt has to bring this from home as it is non-formulary (3) Drug abuse and dependence: Plan: -Patient sees [facility] for Suboxone -Patient has appointment tomorrow for refills, however, very unlikely to make this appointment -Suboxone twice daily ordered while inpatient. Patient appears to be in withdrawal transitioned to ICU and on precedex If delirium or agitation continues consider infectious work-up (4) HCV (hepatitis C virus): Plan: -noted. CMP ordered Plan Patient also with topical scabies concern permethrin ordered contact isolation ordered DVT prophylaxis: Lovenox CODE STATUS: Full code Continue hospitalization based on need of significant oxygen supplementation Admission and Anticipated Discharge Date Admission Date: September 01, 2022 Subjective Patient is improved still lethargic still has significant respiratory distress and oxygen requirements. At rest he is fairly comfortable with minimal exertion even speaking he uses accessory muscles. Exam of the chest remains abnormal Physical Exam Physical Exam: Patient is awake and alert but still lethargic he has coughing which is nonproductive he has tactile fremitus and expiratory wheezes in all lung moser Results & Data Results & Data Vital Signs (Past 12 Hours) Vital Signs Temp Pulse Pulse Resp BP BP Pulse Ox 09/05/22 16:00 79 09/05/22 12:00 79 21 92 09/05/22 11:00 77 20 92 09/05/22 11:00 131/79 09/05/22 10:00 73 22 91 09/05/22 10:00 121/78 09/05/22 09:00 87 21 96 09/05/22 09:00 115/78 09/05/22 08:00 73 22 92 09/05/22 08:00 124/78 09/05/22 07:00 73 26 H 92 09/05/22 07:00 125/75 09/05/22 08:00 09/05/22 08:00 97.9 F 98 H 22 148/96 H 94 09/05/22 08:00 09/05/22 08:00 09/05/22 08:00 77 09/05/22 06:59 72 18 92 09/05/22 06:00 77 22 91 09/05/22 06:00 114/75 09/05/22 05:30 75 29 H 94 09/05/22 05:00 74 25 H 95 09/05/22 05:00 119/73 09/05/22 05:35 74 26 H 91 Pulse Ox O2 Del Method O2 Del Method O2 Flow Rate O2 Flow Rate FiO2 09/05/22 16:00 09/05/22 12:00 09/05/22 11:00 09/05/22 11:00 09/05/22 10:00 09/05/22 10:00 09/05/22 09:00 09/05/22 09:00 09/05/22 08:00 09/05/22 08:00 09/05/22 07:00 09/05/22 07:00 09/05/22 08:00 High Flow Nasal Cannula 20 60 09/05/22 08:00 High Flow Nasal Cannula 20 60 09/05/22 08:00 92 High Flow Nasal Cannula 20 09/05/22 08:00 High Flow Nasal Cannula 60 09/05/22 08:00 09/05/22 06:59 High Flow Nasal Cannula 20 60 09/05/22 06:00 09/05/22 06:00 09/05/22 05:30 09/05/22 05:00 09/05/22 05:00 09/05/22 05:35 High Flow Nasal Cannula 20 60 Laboratory Results Reviewed CBC reviewed chemistry PG Care Time/CCT Total # of Minutes Spent Total Time Spent with Patient: Total time spent is greater than 50% in coordination of care (as documented) at patient's floor/unit and/or counseling patient: Coding Level of Care Code 38721 SUB INP/OBS CARE MIN Diagnoses Hypoxia R09.02 HIV (human immunodeficiency virus infection) B20 Drug abuse and dependence F19.20 HCV (hepatitis C virus) B19.20
[2022-09-05 17:41] LABS: LSP % Cells Analyzed CD4 25 % (30-61); LSP Absolute Ct CD4 271 cells/uL (490-1740); LSP Lymphocytes Absolute 1079 cells/uL (850-3900)
--- NOTE | 2022-09-05 18:26 | Infectious Disease Progress Nt ---
Date of Service September 05, 2022 24 hours No significant change o/n Assessment & Plan (1) Wheezing: (2) Acute respiratory failure with hypoxia: (3) HIV (human immunodeficiency virus infection): (4) HCV (hepatitis C virus): (5) Cocaine abuse: Plan #Pneumonia with GGO #HIV #Hepatitis C #Drug use #LE rash 32 yo M with h/o HIV on Biktarvy, hepatitis C, drug abuse and dependence, history of heroin abuse, and history of cocaine use who presented to the hospital for concern of dyspnea on 09/01. Infectious diseases consulted for HIV and pneumonia. Patient p/w nonproductive and SOB over past 3 days [employer]. Notably he is on Suboxone. Regarding his HIV, he is on Biktarvy and is undetectable and normal CD4 but unable to give numbers. Risk factors: currently smokes/vapes, no sick contacts, no new travel o new rashes. On admission, vitals stable. Initial labs remarkable for white count 12.38 with a neutrophilic predominance, relatively normal chemistry, lactate dehydrogenase at 350, procalcitonin negative. Viral PCR panel negative for all viruses on panel. COVID-negative. Diagnostic imaging included an x-ray and chest CTA both of which are indicative of pneumonitis suspicious for viral etiology. CTA showed GGO. Patient was started on Zosyn, azithromycin, and Bactrim. Patient was incarcerated for 3 years and released 7 months ago, He states he started Biktarvy Discussion: Patient with u/k CD4, VL, additional risk factors, outdoor landscaping, poor hygiene, incarceration about 7 months ago. GGO on imaging in setting of HIV make PJP very likely possibility but typically subacute. He is on IV Bactrim, agree with corticosteroids. May be able to do oral Bactrim and oral prednisone given he can take oral but will monitor oxygenation o/n. PJP PCR pending, BDG serum pending, will check aspergillus antigen. Viral panel is negative. Check MRSA pcr. Exam is concerning for scabies Recommend 1. pneumonia - Follow PJP PCR, BDG, Aspergillus antigen Risk for TB but imaging and presentation not c/w TB - no nodules or cavitary lesions C/W Zosyn, azithromycin 2. Empiric treatment for PJP, changed po Bactrim DS 2 Tabs TID and Solumedrol for coverage of both PJP and EVALI Day 4 If CD4> 200 then this is unlikely PJP 3. HIV, AIDS? Check CD4, VL, check RPR--> pending Continue Biktarvy 4. Possible scabies - permethrin ordered, patient in isolation 5. Currently in ICU given higher oxygenation needs and lethargy possible need for precedex per ICU - some concern for EVALI is a diagnosis of exclusion. Continue Solu- Medrol ID will follow, please page OTW with questions. Dr. Jason to start service on Thursday. Yaritza Sal MD Infectious Diseases Admission and Anticipated Discharge Date Admission Date: September 01, 2022 Subjective This patient recommendation is based on a telemedicine consult request which was completed asynchronously through chart review and information provided by the primary physician. The patient was not seen or examined today. The evaluation is consultative in nature and all patient care and treatment decisions can either be accepted or rejected by the patient's primary hospital-based treating physician using their own independent medical judgment for their patient. Time Spent Reviewing Chart: 21 - 30 minutes Results & Data Vital Signs (Past 12 Hours) Vital Signs Temp Pulse Pulse Resp BP BP Pulse Ox 09/05/22 16:00 79 09/05/22 12:00 79 21 92 09/05/22 11:00 77 20 92 09/05/22 11:00 131/79 09/05/22 10:00 73 22 91 09/05/22 10:00 121/78 09/05/22 09:00 87 21 96 09/05/22 09:00 115/78 09/05/22 08:00 73 22 92 09/05/22 08:00 124/78 09/05/22 07:00 73 26 H 92 09/05/22 07:00 125/75 09/05/22 08:00 09/05/22 08:00 36.6 C 98 H 22 148/96 H 94 09/05/22 08:00 09/05/22 08:00 09/05/22 08:00 77 09/05/22 06:59 72 18 92 Pulse Ox O2 Del Method O2 Del Method O2 Flow Rate O2 Flow Rate FiO2 09/05/22 16:00 09/05/22 12:00 09/05/22 11:00 09/05/22 11:00 09/05/22 10:00 09/05/22 10:00 09/05/22 09:00 09/05/22 09:00 09/05/22 08:00 09/05/22 08:00 09/05/22 07:00 09/05/22 07:00 09/05/22 08:00 High Flow Nasal Cannula 20 60 09/05/22 08:00 High Flow Nasal Cannula 20 60 09/05/22 08:00 92 High Flow Nasal Cannula 20 09/05/22 08:00 High Flow Nasal Cannula 60 09/05/22 08:00 09/05/22 06:59 High Flow Nasal Cannula 20 60 Laboratory Results Laboratory Results - last 48 hr 09/02/22 09/02/22 09/03/22 09:01 09:01 22:27 WBC RBC Hgb Hct MCV MCH MCHC RDW Std Deviation RDW Coeff of Estelle Plt Count MPV Immature Gran % (Auto) Neut % (Auto) Lymph % (Auto) Aurora % (Auto) Eos % (Auto) Baso % (Auto) Neut # (Auto) Lymph # (Auto) [place] # (Auto) Eos # (Auto) Baso # (Auto) Immature Gran # (Auto) Echinocytes Sodium 133 L Potassium Chloride Carbon Dioxide Anion Gap BUN Creatinine Est Cr Clr Drug Dosing Est GFR ( Amer) Est GFR (Non-Af Amer) BUN/Creatinine Ratio Glucose Calcium Phosphorus Magnesium Urine Color Urine Appearance Urine pH Ur Specific E[place] Urine Protein Urine Glucose (UA) Urine Ketones Urine Blood Urine Nitrite Urine Bilirubin Urine Urobilinogen Ur Leukocyte Esterase Urine Opiates Screen Ur Methadone, Qual Urine Barbiturates Ur Phencyclidine (PCP) U Amphetamin/Meth Scrn MDMA (Ecstasy) Screen U Benzodiazepines Scrn Ur Cocaine Metabolite U Marijuana (THC) Screen Absolute Lymphocytes 1079 % CD4 Cells 25 L Absolute CD4 Count 271 L Urine Legionella Ag TB Test (QFT) Gold Plus NEGATIVE TB Test (QFT) Nil 0.03 TB Test Mitogen - Nil >10.00 TB Test Ag - Nil 1 0.00 TB Test Ag - Nil 2 <0.00 09/03/22 09/03/22 09/03/22 Unknown Unknown Unknown WBC RBC Hgb Hct MCV MCH MCHC RDW Std Deviation RDW Coeff of Estelle Plt Count MPV Immature Gran % (Auto) Neut % (Auto) Lymph % (Auto) Aurora % (Auto) Eos % (Auto) Baso % (Auto) Neut # (Auto) Lymph # (Auto) Aurora # (Auto) Eos # (Auto) Baso # (Auto) Immature Gran # (Auto) Echinocytes Sodium Potassium Chloride Carbon Dioxide Anion Gap BUN Creatinine Est Cr Clr Drug Dosing Est GFR ( Amer) Est GFR (Non-Af Amer) BUN/Creatinine Ratio Glucose Calcium Phosphorus Magnesium Urine Color Yellow Urine Appearance Clear Urine pH 6.5 Ur Specific [place] 1.010 Urine Protein Negative Urine Glucose (UA) Negative Urine Ketones Negative Urine Blood Negative Urine Nitrite Negative Urine Bilirubin Negative Urine Urobilinogen Negative Ur Leukocyte Esterase Negative Urine Opiates Screen Neg Ur Methadone, Qual Neg Urine Barbiturates Neg Ur Phencyclidine (PCP) Neg U Amphetamin/Meth Scrn Neg MDMA (Ecstasy) Screen Neg U Benzodiazepines Scrn Pos H Ur Cocaine Metabolite Neg U Marijuana (THC) Screen Pos H Absolute Lymphocytes % CD4 Cells Absolute CD4 Count Urine Legionella Ag SEE NOTE TB Test (QFT) Gold Plus TB Test (QFT) Nil TB Test Mitogen - Nil TB Test Ag - Nil 1 TB Test Ag - Nil 2 09/04/22 09/04/22 09/05/22 07:12 07:12 04:53 WBC 11.94 H 12.79 H RBC 4.11 L 4.22 L Hgb 12.6 L 12.8 L Hct 36.3 L 38.2 L MCV 88.3 90.5 MCH 30.7 30.3 MCHC 34.7 33.5 RDW Std Deviation 42.5 43.7 RDW Coeff of Estelle 13.1 13.2 Plt Count 221 225 MPV 10.1 9.9 Immature Gran % (Auto) 0.3 0.5 Neut % (Auto) 91.1 88.9 Lymph % (Auto) 3.8 4.9 Aurora % (Auto) 4.7 5.6 Eos % (Auto) 0.0 0.0 Baso % (Auto) 0.1 0.1 Neut # (Auto) 10.88 H 11.37 H Lymph # (Auto) 0.45 L 0.63 L Aurora # (Auto) 0.56 0.71 H Eos # (Auto) 0.00 0.00 Baso # (Auto) 0.01 0.01 Immature Gran # (Auto) 0.04 0.07 Echinocytes 1+ Sodium 135 L Potassium 4.3 Chloride 103 Carbon Dioxide 20 L Anion Gap 12 H BUN 18 Creatinine 0.88 Est Cr Clr Drug Dosing 110.8 Est GFR ( Amer) 133.6 Est GFR (Non-Af Amer) 115.3 BUN/Creatinine Ratio 20.5 H Glucose 136 H Calcium 9.1 Phosphorus 3.0 Magnesium 1.9 Urine Color Urine Appearance Urine pH Ur Specific [place] Urine Protein Urine Glucose (UA) Urine Ketones Urine Blood Urine Nitrite Urine Bilirubin Urine Urobilinogen Ur Leukocyte Esterase Urine Opiates Screen Ur Methadone, Qual Urine Barbiturates Ur Phencyclidine (PCP) U Amphetamin/Meth Scrn MDMA (Ecstasy) Screen U Benzodiazepines Scrn Ur Cocaine Metabolite U Marijuana (THC) Screen Absolute Lymphocytes % CD4 Cells Absolute CD4 Count Urine Legionella Ag TB Test (QFT) Gold Plus TB Test (QFT) Nil TB Test Mitogen - Nil TB Test Ag - Nil 1 TB Test Ag - Nil 2 09/05/22 04:53 WBC RBC Hgb Hct MCV MCH MCHC RDW Std Deviation RDW Coeff of Estelle Plt Count MPV Immature Gran % (Auto) Neut % (Auto) Lymph % (Auto) Aurora % (Auto) Eos % (Auto) Baso % (Auto) Neut # (Auto) Lymph # (Auto) [place] # (Auto) Eos # (Auto) Baso # (Auto) Immature Gran # (Auto) Echinocytes Sodium 135 L Potassium 4.8 Chloride 105 Carbon Dioxide 21 Anion Gap 9 BUN 14 Creatinine 0.73 Est Cr Clr Drug Dosing 133.5 Est GFR ( Amer) 144.3 Est GFR (Non-Af Amer) 124.5 BUN/Creatinine Ratio 19.2 Glucose 119 H Calcium 9.1 Phosphorus 3.7 Magnesium 1.8 Urine Color Urine Appearance Urine pH Ur Specific [place] Urine Protein Urine Glucose (UA) Urine Ketones Urine Blood Urine Nitrite Urine Bilirubin Urine Urobilinogen Ur Leukocyte Esterase Urine Opiates Screen Ur Methadone, Qual Urine Barbiturates Ur Phencyclidine (PCP) U Amphetamin/Meth Scrn MDMA (Ecstasy) Screen U Benzodiazepines Scrn Ur Cocaine Metabolite U Marijuana (THC) Screen Absolute Lymphocytes % CD4 Cells Absolute CD4 Count Urine Legionella Ag TB Test (QFT) Gold Plus TB Test (QFT) Nil TB Test Mitogen - Nil TB Test Ag - Nil 1 TB Test Ag - Nil 2 Diagnostic Findings Chest X-Ray 09/03/22 09:46 XR chest 1V portable CLINICAL HISTORY: hypoxia TECHNIQUE: Single frontal radiograph of the chest was obtained. Comparison: Comparison is made to chest radiograph 09/02/2022 FINDINGS: No lines and tubes are seen. The cardiomediastinal silhouette is normal. Bilateral airspace opacities are again seen. No evidence of pleural effusion or pneumothorax. IMPRESSION: Stable bilateral airspace opacities compatible with pneumonia. ACT 112: Negative or not required by law. Electronically signed by: Jeff Bean M.D. 09/03/2022 10:18 AM Chest X-Ray 09/04/22 07:00 XR chest 1V portable CLINICAL HISTORY: Hypoxia. COMPARISON STUDY: Chest CT September 01, 2022. Chest radiograph September 03, 2022. FINDINGS: Lung volumes are normal. No pneumothorax or pleural effusion is present. Cardiomediastinal silhouette is stable. Interstitial thickening in multifocal opacities are again noted. A focus of consolidation within the right mid to upper lung has slightly progressed. IMPRESSION: Slight progression of suspected multifocal pneumonia. ACT 112: Negative or not required by law. Electronically signed by: Jerry Carr M.D. 09/04/2022 7:06 AM Chest X-Ray 09/05/22 08:20 XR chest 1V portable HISTORY: 32 years-old Male hypoxia acute hypoxia COMPARISON: 09/04/2022 TECHNIQUE: AP view of the chest FINDINGS: Cardiomediastinal and hilar silhouettes are unchanged. Interstitial coarsening with ill-defined bilateral airspace opacities, generally stable from yesterday's study. No pneumothorax or pleural effusion. The bones appear normal. IMPRESSION: Stable bilateral pulmonary opacities suggestive of multifocal pneumonia. ACT 112: Negative or not required by law. The above report was generated using voice recognition software. It may contain grammatical, syntax or spelling errors. Electronically signed by: Eduardo Meyers M.D. 09/05/2022 8:55 AM Medications Administered Current Inpatient Medications Acetaminophen (Acetaminophen 325 Mg Tab) 650 mg PO Q4H PRN PRN Reason: Pain or Fever Stop: 10/02/22 00:40 Albuterol (Albut/Ipratrop 3mg/0.5mg Neb 3 Ml Vial) 3 ml NEB Q4R PRN; Protocol PRN Reason: Shortness Of Breath Or Wheezing Stop: 10/02/22 02:59 Last Admin: 09/04/22 02:23 Dose: 3 ml Bictegravir/Emtricitabine/Tenofovir (Biktarvy) 1 each PO DAILY MICHELLE Stop: 10/04/22 08:59 Last Admin: 09/05/22 08:46 Dose: 1 each Budesonide (Budesonide 0.5 Mg/2 Ml Vial (Pulmicort)) 0.5 mg NEB BIDR [facility] Stop: 10/02/22 18:59 Last Admin: 09/05/22 06:58 Dose: 0.5 mg Buprenorphine/Naloxone (Buprenorphine/Naloxone 8/2 Mg Tab) 1 tab SL BID [facility] Stop: 10/02/22 08:59 Last Admin: 09/05/22 08:46 Dose: 1 tab Enoxaparin Sodium (Enoxaparin Inj 40 Mg/0.4 Ml Syr) 40 mg SQ DAILY [facility] Stop: 10/02/22 08:59 Last Admin: 09/05/22 08:46 Dose: 40 mg Famotidine (Famotidine 20 Mg Tab) 20 mg PO BID [facility] Stop: 10/04/22 20:59 Last Admin: 09/05/22 08:47 Dose: 20 mg Formoterol Fumarate (Formoterol 20 Mcg/2 Ml Vial) 20 mcg NEB BIDR [facility] Stop: 10/02/22 18:59 Last Admin: 09/05/22 06:59 Dose: 20 mcg Gabapentin (Gabapentin 600 Mg Tab) 1,200 mg PO BID [facility] Stop: 10/05/22 10:29 Last Admin: 09/05/22 10:54 Dose: 1,200 mg Guaifenesin (Guaifenesin 600 Mg Tabcr) 600 mg PO Q12 MICHELLE Stop: 10/02/22 08:59 Last Admin: 09/05/22 08:47 Dose: 600 mg Piperacillin Sod/Tazobactam (Sod 4.5 gm/ Dextrose) 120 mls @ 30 mls/hr IV Q8H [facility]; Protocol Stop: 09/09/22 01:59 Last Admin: 09/05/22 17:42 Dose: 30 mls/hr Azithromycin 500 mg/ Dextrose 255 mls @ 125 mls/hr IV Q24H [facility] Stop: 09/09/22 19:59 Last Infusion: 09/04/22 22:52 Dose: Infused Dexmedetomidine/Sodium Chloride (Precedex) 200 mcg in 50 mls @ 0 mls/hr IV .Q0M [facility]; Protocol Stop: 09/07/22 11:14 Last Titration: 09/05/22 12:41 Dose: Infused Methylprednisolone 40 mg/ (Syringe) 0.64 mls @ 1.5 mls/min IV BID [facility] Stop: 10/05/22 20:59 Miscellaneous (Remove Nicoderm Patch) 1 each N/A DAILY@0859 [facility] Stop: 10/06/22 08:58 Nicotine (Nicotine 21 Mg/24 Hr Tdsy) 21 mg TD QAM [facility] Stop: 10/05/22 10:14 Last Admin: 09/05/22 10:53 Dose: 21 mg Ondansetron HCl (Ondansetron Inj 2 Mg/Ml 2 Ml Vial) 4 mg IV Q6H PRN PRN Reason: Nausea Stop: 10/02/22 00:40 Last Admin: 09/05/22 15:11 Dose: 4 mg Polyethylene Glycol (Polyethylene (Miralax) 17 Gm Pack) 17 gm PO DAILY [facility] Stop: 10/02/22 12:44 Last Admin: 09/05/22 08:47 Dose: Not Given Senna/Docusate Sodium (Docusate Sodium/Senna 50/8.6mg Tab) 1 tab PO QAM [facility] Stop: 10/02/22 12:44 Last Admin: 09/05/22 08:46 Dose: 1 tab Trimethoprim/Sulfamethoxazole (Sulfamethoxazole/Trimethoprim Ds 800/160mg Tab) 2 tab PO Q8H [facility] Stop: 09/11/22 15:59 Last Admin: 09/05/22 15:22 Dose: 2 tab
[2022-09-05] MEDS ORDERED: chlordiazePOXIDE HCl 25 MG CAP PO ONE (18:30)
[2022-09-05] MEDS: AZITHROMYCIN 500 MG in DEXTROSE 5% 250 ML IV SCH (20:51)
[2022-09-05] MEDS ORDERED: methylPREDNISolone 40 MG in SYRINGE 0 ML IV SCH (21:00)
[2022-09-05] MEDS ORDERED: MELATONIN 3 MG TAB PO PRN (23:56)
[2022-09-06] MEDS: PIPERACILLIN/TAZOBACTAM 4.5 GM in DEXTROSE 5% 100 ML IV SCH ×2 (00:49→10:30)
[2022-09-06] MEDS: ALBUT/IPRATROP 3MG/0.5MG NEB 3 ML VIAL NEB PRN (03:50)
[2022-09-06 04:35] LABS: Basophils # (auto) 0.01 K/uL (0-0.2); Basophils % (auto) 0.1 %; Eosinophils # (auto) 0.01 K/uL (0-0.50); Eosinophils % (auto) 0.1 %; Hematocrit (blood only) 37.7 % (42.0-52.0); Hemoglobin 12.8 g/dl (14.0-18.0); Immature Granulocytes # (auto) 0.07 K/uL (0.01-0.20); Immature Granulocytes % (auto) 0.7 %; Lymphocytes # (auto) 0.99 K/uL (1.2-3.4); Lymphocytes % (auto) 10.1 %; Mean Corpuscular Hemoglobin 30.4 pg (25.0-34.0); Mean Corpuscular Volume 89.5 fL (80.0-100.0); Mean Platelet Volume 9.6 fL (9.4-12.4); Monocytes # (auto) 0.54 K/uL (0.11-0.59); Monocytes % (auto) 5.5 %; Neutrophils # (auto) 8.16 K/uL (1.40-6.50); Neutrophils % (auto) 83.5 %; Platelet Count 262 K/uL (130-400); RDW Coefficient of Variation 13.2 % (11.5-14.5); RDW Standard Deviation 43.9 fL (36.4-46.3); Red Blood Count 4.21 M/uL (4.70-6.10); White Blood Count 9.78 K/ul (4.8-10.8)
[2022-09-06 04:50] LABS: BUN Creatinine Ratio 20.8 (10-20); Calcium 9.1 mg/dl (8.6-10.3); Creatinine Clr Calc Pharmacy 126.6 ml/min; Est GFR (African American) 141.1 ml/min; Est GFR (Non-African American) 121.8 ml/min; Magnesium 1.8 mg/dl (1.7-2.4)
[2022-09-06] MEDS: BUDESONIDE 0.5 MG/2 ML VIAL (PULMICORT) NEB SCH (07:36)
[2022-09-06] MEDS: FORMOTEROL 20 MCG/2 ML VIAL NEB SCH (07:36)
[2022-09-06] MEDS: BUPRENORPHINE/NALOXONE 8/2 MG TAB SL SCH (07:42)
[2022-09-06] MEDS: BIKTARVY PO SCH (07:43)
[2022-09-06] MEDS: GABAPENTIN 600 MG TAB PO SCH (07:43)
[2022-09-06] MEDS: guaiFENesin 600 MG TABCR PO SCH (07:44)
[2022-09-06] MEDS: NICOTINE 21 MG/24 HR TDSY TD SCH (07:45)
[2022-09-06] MEDS: ENOXAPARIN INJ 40 MG/0.4 ML SYR SQ SCH (07:45)
[2022-09-06] MEDS: DOCUSATE SODIUM/SENNA 50/8.6MG TAB PO SCH (07:45)
[2022-09-06] MEDS: POLYETHYLENE (MIRALAX) 17 GM PACK PO SCH (07:46)
[2022-09-06] MEDS: SULFAMETHOXAZOLE/TRIMETHOPRIM DS 800/160MG TAB PO SCH (08:06)
[2022-09-06] MEDS: FAMOTIDINE 20 MG TAB PO SCH (08:06)
[2022-09-06] MEDS ORDERED: predniSONE 20 MG TAB PO SCH (09:00)
[2022-09-06 13:37] LABS: 7-Aminoclonaz, Confirm NEGATIVE ng/mL (<25); Hydro-Alp Ur, GC/MS 85 ng/mL (<25); Hydroxyethylflurazepam, Conf NEGATIVE ng/mL (<50); Hydroxymidazolam Ur, GC/MS NEGATIVE ng/mL (<50); Hydroxytriazolam NEGATIVE ng/mL (<50); Lorazepam, Ur GC/MS 306 ng/mL (<50); Marijuana Quant, GCMS Urine 1524 ng/mL (<5); Nordiazepam, Confirm NEGATIVE ng/mL (<50); Oxazepam Ur, GC/MS NEGATIVE ng/mL (<50); Temazepam, Confirm NEGATIVE ng/mL (<50)
[2022-09-06] MEDS ORDERED: chlordiazePOXIDE HCl 25 MG CAP PO SCH ×2 (14:00→21:00)
--- NOTE | 2022-09-06 15:28 | Discharge Summary ---
Date of Service September 06, 2022 Admission HPI Per Admitting Provider Patient is a 32-year-old male with past medical history of HIV, hepatitis C, drug abuse and dependence, history of heroin abuse, and history of cocaine use who presented to the hospital for concern of dyspnea. For the past 3 days, patient has had progressively worsening shortness of breath. Reports cough as well but nonproductive. Patient is on Suboxone therapy twice daily with his last dose being on the morning of 09/01/2022. Patient is also HIV positive and is on Biktarvy 1 tablet daily. Reports that his latest CD4 numbers are "normal". He is unable to tell me what the actual number is. Denies any sick contacts. No nausea or vomiting. No new rashes. Feeling some fatigue and general unwellness. Patient does smoke currently and vapes. Reports that vaping cartridges are from the [place]. No other complaints at this time. ED course: Patient was evaluated by ED provider. Labs are significant for an elevated white count at 12.38 with a neutrophilic predominance, sodium of 134, total bilirubin at 1.2, alkaline phosphatase at 120, lactate dehydrogenase at 350, procalcitonin negative. Viral PCR panel negative for all viruses on panel. COVID-negative. Diagnostic imaging included an x-ray and chest CTA both of which are indicative of pneumonitis suspicious for viral etiology. Due to patient's HIV status, patient was started on Zosyn, azithromycin, and Bactrim. The hospitalist service was then consulted for admission and treatment. Patient is on supplemental oxygen with nasal cannula at 6 L at the time of consultation. Saturating at 91%. Principal Diagnosis Likely EVALI Acute respiratory failure hypoxia resolved Substance abuse withdrawal, multiple substances PTSD Discharge Exam Patient awake alert appropriate he still has some expiratory wheezes in his lungs Discharge Data Allergies Allergy/AdvReac Type Severity Reaction Status Date / Time No Known Allergies Allergy Verified 09/01/22 20:39 Consultations 09/01/22 21:29 ED Decision to Admit Stat 09/02/22 00:29 Consult Infectious Diseases Routine 09/02/22 11:20 Consult Pulmonology Routine 09/03/22 10:23 Consult Cane Flume Watcher Routine Ordered Studies Chest X-Ray 09/01/22 19:36 XR chest 1V portable HISTORY: 32 years-old Male Fever, hypoxia acute fever COMPARISON: CTA chest of same day TECHNIQUE: AP view of the chest FINDINGS: Cardiac silhouette is normal. No pneumothorax, pleural effusion or overt pulmonary edema. Patchy multifocal airspace opacities. Bones appear grossly intact. IMPRESSION: Multifocal multilobar pneumonia. Follow-up chest radiograph following treatment course recommended to document resolution. ACT 112: Negative or not required by law. The above report was generated using voice recognition software. It may contain grammatical, syntax or spelling errors. Electronically signed by: Eduardo Meyers M.D. 09/02/2022 7:52 AM Chest CTA 09/01/22 20:07 Exam(s): CTA CHEST IV Amt: 103 ML OPTIRAY 230 EXAM: CT Angiography Chest With Intravenous Contrast CLINICAL HISTORY: Reason for exam: PE, hypoxia. TECHNIQUE: Axial computed tomographic angiography images of the chest with intravenous contrast. CTDI is 16.16 mGy and DLP is 574.19 mGy-cm. Automated exposure control was utilized for the study. A dose lowering technique was utilized adhering to the principles of ALARA. MIP reconstructed images were created and reviewed. COMPARISON: No relevant prior studies available. FINDINGS: Pulmonary arteries: Unremarkable. No CT evidence of pulmonary embolism. Aorta: No acute findings. No thoracic aortic aneurysm. Lungs: Patchy central groundglass opacities involving bilateral lungs with an upper lung predominance at. These findings are consistent with a nonspecific pneumonitis. Viral pneumonia such as Covid would be most likely. Pleural space: Unremarkable. No significant effusion. No pneumothorax. Heart: Unremarkable. No cardiomegaly. No significant pericardial effusion. No evidence of RV dysfunction. Mediastinum: Mild mediastinal lymphadenopathy present as follows: Right hilar-1.1 cm and subcarinal-0.9 cm. There are favored to be reactive secondary to the underlying pulmonary abnormality. Bones/joints: No acute fracture. No dislocation. Soft tissues: Unremarkable. Lymph nodes: Unremarkable. No enlarged lymph nodes. IMPRESSION: 1. No CT evidence of pulmonary embolism. 2. Patchy central groundglass opacities involving bilateral lungs with an upper lung predominance at. These findings are consistent with a nonspecific pneumonitis. Viral pneumonia such as Covid would be most likely. Electronically signed by: Tank Liu M.D. 09/01/22 21:43 PM Chest X-Ray 09/02/22 09:42 SINGLE VIEW CHEST CLINICAL HISTORY: Increasing dyspnea FINDINGS: An AP, portable, upright chest radiograph is compared to chest x-ray and chest CT dated dated 09/01/2022. The cardiomediastinal silhouette is unremarkable. Multifocal airspace consolidation is again seen throughout both lungs. This is unchanged to modestly worsened as compared to yesterday. No large pleural effusion or pneumothorax is identified. The bony thorax is grossly intact. IMPRESSION: 1. Multifocal airspace consolidation is again seen throughout both lungs. This is unchanged to modestly worsened as compared to yesterday. The appearance is most typical for multiple pneumonia, potentially viral. Correlate clinically. 2. No pleural effusion is identified. ACT 112: Negative or not required by law. Electronically signed by: Duc Holden M.D. 09/02/2022 10:16 AM Chest X-Ray 09/03/22 09:46 XR chest 1V portable CLINICAL HISTORY: hypoxia TECHNIQUE: Single frontal radiograph of the chest was obtained. Comparison: Comparison is made to chest radiograph 09/02/2022 FINDINGS: No lines and tubes are seen. The cardiomediastinal silhouette is normal. Bilateral airspace opacities are again seen. No evidence of pleural effusion or pneumothorax. IMPRESSION: Stable bilateral airspace opacities compatible with pneumonia. ACT 112: Negative or not required by law. Electronically signed by: Jeff Bean M.D. 09/03/2022 10:18 AM Chest X-Ray 09/04/22 07:00 XR chest 1V portable CLINICAL HISTORY: Hypoxia. COMPARISON STUDY: Chest CT September 01, 2022. Chest radiograph September 03, 2022. FINDINGS: Lung volumes are normal. No pneumothorax or pleural effusion is present. Cardiomediastinal silhouette is stable. Interstitial thickening in multifocal opacities are again noted. A focus of consolidation within the right mid to upper lung has slightly progressed. IMPRESSION: Slight progression of suspected multifocal pneumonia. ACT 112: Negative or not required by law. Electronically signed by: Jerry Carr M.D. 09/04/2022 7:06 AM Chest X-Ray 09/05/22 08:20 XR chest 1V portable HISTORY: 32 years-old Male hypoxia acute hypoxia COMPARISON: 09/04/2022 TECHNIQUE: AP view of the chest FINDINGS: Cardiomediastinal and hilar silhouettes are unchanged. Interstitial coarsening with ill-defined bilateral airspace opacities, generally stable from yesterday's study. No pneumothorax or pleural effusion. The bones appear normal. IMPRESSION: Stable bilateral pulmonary opacities suggestive of multifocal pneumonia. ACT 112: Negative or not required by law. The above report was generated using voice recognition software. It may contain grammatical, syntax or spelling errors. Electronically signed by: Eduardo Meyers M.D. 09/05/2022 8:55 AM Hospital Course (1) Hypoxia: Patient is a 32-year-old male with past medical history of HIV, hepatitis C, drug abuse and dependence, history of heroin abuse, and history of cocaine use who presented to the hospital for concern of dyspnea. Imaging consistent with pneumonitis. However, respiratory viral panel has been negative. acute respiratory failure secondary to viral pneumonitis, versus EVALI pt requiring High flow NC eventually tapered to room air we will go home on tapering dose of steroids Since patient CD4 count is appropriate feel less likely PJP patient be discharged on double strength Bactrim twice daily to cover any bacterial pneumonia -Rangel TB testing pending at time of discharge -She sent home on Advair plus as needed albuterol inhaler -Encourage smoking and vaping cessation -Nicotine patch applied encouraged to continue tobacco cessation as an outpatient Corticosteroid taper as an outpatient steroids are exacerbating some of his psychological issues so we will attempt more rapid taper - Patient cephalopathy is improved patient be discharged home on Librium taper for substance abuse withdrawal (2) HIV (human immunodeficiency virus infection): -Unknown previous CD4 count-CD4 level ordered -Continue home Biktarvy. Pt had to bring this from home as it is non-formulary (3) Drug abuse and dependence: -Patient sees [facility] for Suboxone (4) HCV (hepatitis C virus): -noted. 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 Activity: Per Instructions section Non-emergency contact: Primary Care Provider Call non-emergency contact if: your symptoms worsen Follow-up/Referrals: Wilver Miller DO [Primary Care Provider] - Diet: Regular Addtl Attending Provider Instructions: Please complete your antibiotics and a steroid taper, please do not smoke use e- cigarettes or vape as your lungs are still healing, strongly consider using a nicotine patch With the air quality being poor would also be recommended that you do not work outside for at least 1 week after discharge or until the air quality improves to avoid making your lung issues worse He will be given some doses of Librium to help ease you back off of any withdrawal you may be experiencing Please follow-up with your family doctor this week Your CD4 count came back at 271 which is actually very good continue taking your medications as you have been Pending Studies at Discharge: No Stand-Alone Forms: My [facility] GRAVIDI, Smoking Cessation Medications and DC Order Prescriptions: New prednisone 10 mg tablet 10 mg PO DIRECTED Qty: 24 0RF Rx Instructions: 3 a day x 4 d>2 a day x 4 d>1 a day sulfamethoxazole-trimethoprim [Bactrim DS] 800-160 mg tablet 1 tab PO BID 5 Days Qty: 10 0RF fluticasone propion-salmeterol [Advair Diskus] 250-50 mcg/dose blister with device 1 inh inhalation BID Qty: 60 0RF chlordiazepoxide HCl 25 mg capsule 25 mg PO UD Qty: 8 0RF Rx Instructions: one 3xs a day x1d then 1 two times a day x 1 d then one a day x 3 days albuterol sulfate 90 mcg/actuation aerosol powdr breath activated 1 inh inhalation Q6H PRN (Reason: shortness of breath or wheezing) Qty: 1 0RF Continued gabapentin 600 mg tablet 1,200 mg PO BID Qty: 120 5RF Biktarvy 50-200-25 mg tablet 1 tab PO DAILY Qty: 30 11RF buprenorphine-naloxone 8-2 mg film 1 film sublingual BID naloxone 4 mg/actuation spray,non-aerosol 0 spray INTRANASAL DIRECTED PRN (Reason: OVERSEDATION) Discharge Orders: Discharge Order (Routine); Ordered 09/06/22 Ordered By: Damien Shelby Admission Data Admit Date/Time: 09/01/22 23:17 Attending Provider: Damien Shelby Admit Provider: Chava Lott Primary Care Provider: Wilver Miller Other Providers: Rancho Shine ; Elier Nolasco ; Adia Richards ; Demetrius Dorsey ; Aurelia Jason ; Neptali Conteh ; Vivien Wall ; Yaritza Sal ; Makenzie Beyer ; Kimberly Alvarez ; Arminda Vera ; Duc Soares ; Constantino Tello ; Jesus Forrest ; Heath Lopez ; Ama Lewis Coding Level of Care Code 30028 INP/OBS DISCH >30 MIN Diagnoses Hypoxia R09.02 HIV (human immunodeficiency virus infection) B20 Drug abuse and dependence F19.20 HCV (hepatitis C virus) B19.20
[2022-09-06 16:07] LABS: Fungitell (1-3)-B-D-Glucan <31 pg/mL
[2022-09-07 19:22] LABS: Aspergillus Ag Index 0.06 (<0.50); Aspergillus Antigen, Serum Not Detected (Not Detected)
== END 2022-09-06 16:00 | disposition home or self-care (01) | DRG 205 ==
LOC: ED 19:21 → SUATTDRO 23:17 → 2S 23:17 → 1E 09-03 10:51

== ENCOUNTER 2025-01-07 16:18 | Inpatient (IN) ==
--- NOTE | 2025-01-07 16:45 | XRay Report ---
Chest radiograph, one view History: Sepsis Comparison: None Findings: Single AP view of the chest performed. No focal consolidation or pleural effusion. No pneumothorax. The cardiomediastinal silhouette is within normal limits. Normal pulmonary vascularity. No evidence for lymphadenopathy. No visualized bony or soft tissue abnormality. Impression: Normal chest radiograph Electronically signed by Jonnie Milan 01-07-2025 4:45 PM
[2025-01-07 17:12] LABS: Hematocrit (blood only) 40.1 % (42.0-52.0); Hemoglobin 13.5 g/dl (14.0-18.0); Immature Granulocytes # (auto) 0.01 K/uL (0.01-0.20); Immature Granulocytes % (auto) 0.2 %; Mean Corpuscular Hemoglobin 29.5 pg (25.0-34.0); Mean Corpuscular Volume 87.7 fL (80.0-100.0); Platelet Count 238 K/uL (130-400); RDW Standard Deviation 39.0 fL (36.4-46.3); Red Blood Count 4.57 M/uL (4.70-6.10); White Blood Count 5.83 K/ul (4.8-10.8)
[2025-01-07] MEDS ORDERED: VANCOMYCIN CONSULT ACTIVE PRN (17:23)
[2025-01-07] MEDS: DROPERIDOL 5 MG/2 ML VIAL IV STA (17:25)
[2025-01-07 17:35] LABS: Alanine Aminotransferase 11 U/L (7-52); Albumin Level 4.3 gm/dl (3.4-5.0); Alkaline Phosphatase 96 U/L (34-104); Anion Gap 4 (3-11); Bilirubin,Total 0.3 mg/dl (0.2-1.0); Blood Urea Nitrogen 9 mg/dl (6-23); Calcium 9.4 mg/dl (8.6-10.3); Carbon Dioxide 30 mmol/L (21-32); Chloride 105 mmol/L (98-107); Glucose 54 mg/dl (70-99(Fasting)); Magnesium 1.7 mg/dl (1.7-2.4); Potassium 4.3 mmol/L (3.5-5.1); Sodium 139 mmol/L (136-145); Total Protein 7.3 gm/dl (6.0-8.3)
--- NOTE | 2025-01-07 18:30 | Emergency Department Note ---
Impression & Plan Blood culture positive ED Provider Note NAME: MIGUEL BARRIOS AGE: 34 SEX: M : 1990 ARRIVES VIA: Walk-In INFORMANT: Patient, ED PROVIDER(S): Aarti Liu MD CHIEF COMPLAINT: Positive blood cultures HPI: This is a 34-year-old male presenting for positive blood cultures. Patient was recently in the hospital and left AGAINST MEDICAL ADVICE. Please see MDM for extensive history of this. Otherwise in the meantime, patient has had worsening of symptoms, feeling weak, tired, having fever at home. He was noted to have positive blood cultures and advised come back to the ER. ROS: See above HPI for pertinent positives & negatives. A total of 10 systems reviewed and were otherwise negative. PAST MEDICAL HISTORY: See Below PAST SURGICAL HISTORY: See Below FAMILY HISTORY: See Below SOCIAL HISTORY: See Below HOME MEDICATIONS: See Below ALLERGIES: See Below VITALS: See Below PHYSICAL EXAMINATION: General: Fatigued Head: Normocephalic and atraumatic Eyes: Normal inspection, extraocular muscles intact Ear, nose, throat: Normal external exam Neck: Normal range of motion Respiratory: lungs clear to auscultation bilaterally Cardiovascular: Regular rate/rhythm, no murmur GI: soft, nontender, no guarding or rebound Extremities: nontender, moves all extremities Neuro: The patient awake and alert, appropriately conversive, no focal deficits, symmetric faces Skin: Warm, dry, and intact MEDICAL DECISION MAKING: This is a 35 male present for positive blood cultures. Summary as below written by ED pharmacistGaviota. Patient has positive blood cultures at this time. He was asked to return to the hospital. He does report symptoms of feeling increasingly weak with fever at home. He does request medicines for anxiety including benzos "because i got them the last time i was here". Based on previous notes by psychiatry and hospitalist, will avoid as per psychiatry and give droperidol. Patient agreeable to this plan. Will get blood cultures and give vancomycin for previous pos blood cultures and now symptoms of weakness. - Bloodwork reviewed showing no leukocytosis. Stable anemia. No electrolyte disturbances. Slightly hyperglycemic, patient given food. Procalcitonin negative. Troponin negative. Urinalysis weakly positive for UTI -Chest Xray independently interpreted by me showing no pneumothorax, focal opacity, or pleural effusions. PMH: past medical history including history of heroin, methamphetamine, and cocaine abuse, anxiety with agitation, ADHD, hepatitis C, HIV, history of e- cigarettes/vaping associated lung injury, and. Admit 01/05 patient reports falling and hitting head twice today, unwitnessed. + N/V. Issues with tremors/shakes in arms and legs. H&P noted concern for psychosis and paranoid delusions related to patient spending a considerable amount of time repeating issues with Narcan in the past, including that it killed his mother. Psych consult 01/05 - Patient was a poor historian, evasive, and presented conflicting details. Atypical psychosis presentation and concern he is feigning for benzodiazepines. Low suspicion for a primary psychotic disorder. Among other chronic med changes, suggested avoiding benzos and using haloperidol or diphenhydramine for behavioral emergencies 01/06 Dr. Jeffers - Given that patient did not meet grounds for 302/involuntary commitment, given no active suicidality or homicidality (this was discussed extensively based on some of the patients previous comments) and given that any attempt to discuss further psychiatrically recommended med management, or holistic overall roadmap to help with his depression/anxiety/agitation was met with resistance and/or circling back to asking for Xanax, I felt that keeping the patient in the hospital further would be of no benefit to him. Mostly once he knew I was not giving him Xanax he was trying to leave so fast that I had to expedite his discharge instructions to make it a "with medical advice" discharge rather than without, but according to nursing notes he refused my discharge instructions anyway. 01/07 hospitalist post-discharge 2/2 blood cultures positive for Micrococcus luteus. pt without s/s infection during hospital stay. with 2/2 have to assume true bacteremia and/or endocarditis until proven otherwise. Dr. Jeffers noted: given his hostility towards me as his hospitalist yesterday, i am concerned if i reach him, his feelings towards me may lead to him refusing care out of anger/frustration rather than coming back to [facility]. because of this, i reached out to ER charge nurse. Also noted: once he does return, would repeat blood cultures, check transthoracic echo. with his lability, dalvance might be preferred over admission and more "traditional" IV abx while the situation is further elucidated. Extreme difficulty getting ahold of the patient, including an incorrect phone number for family, but ED eventually did. Patient noted intent to RTED today. ED pharmacist (Lary) called and discussed case w [facility] physician (Dr. Alvarez) agreed must treat as true bloodstream infection for now. Strongly suggested repeat blood cultures OSWALD *prior* to antibiotics to help determine if the blood cultures x2 may be contaminants. That said, patient is at risk for true bacteremia and endocarditis. Starting vancomycin OSWALD after blood cultures obtained is reasonable. Also suggested TTE OSWALD then VICTOR MANUEL afterwards (if TTE negative and patient willing). Strongly recommended against dalbavancin and discharge as a first line therapy as ongoing work-up is indicated. However, also noted this would be a very reasonable option if the patient adamantly refuses admission, or if the patient notes intent to leave AMA after admission. Dose of dalbavancin would be 1500 mg IV x1 now, and patient may require additional doses in as early as one week from now Differential diagnosis: Sepsis, bacteremia, contamination, UTI, pneumonia Diagnostics interpreted by me: ECG: ECG independently interpreted by me with sinus bradycardia, rate of 58, normal axis, normal AK, normal QRS, normal QTc, no ST segment elevations consistent with STEMI criteria Cardiac Monitoring: An order was placed for continuous cardiac monitoring. The monitor shows a rate of 60 with sinus rhythm. Past Med/Surg History Problem List (Updated 01/08/25 @ 13:10 by Aarti Liu MD) Blood culture positive (Acute) Tobacco dependence Polysubstance abuse Right hip joint effusion Hypoglycemia Bacteremia Labile mood Encephalopathy Ground-level fall Myoclonus (Acute) Fall (Acute) Wheezing Pneumonitis Medical History (Updated 01/08/25 @ 13:10 by Aarti Liu MD) 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) Right hip pain HIV (human immunodeficiency virus infection) HCV (hepatitis C virus) ADHD Anxiety with agitation Drug abuse and dependence Acute respiratory failure with hypoxia Hypoxia History of heroin abuse Methamphetamine abuse Cocaine abuse Surgical History (Updated 01/07/25 @ 21:16 by Collins Villa MD) History of orthopedic surgery R ABDI and replacement of hardware; ~2018 - [facility] Social History Smoking Status: Current every day smoker Tobacco Type: E-cigarettes / Vaping Cigarettes Per Day: x1 pack; Second Hand Exposure: Yes; Do You Dip or Chew Tobacco: No; Hx Alcohol Use: Yes Alcohol type: beer Hx Substance Use: Yes Last Used Substance: Just Prior to Arrival Last Used Substance Other:: methadone Preferred Language: Montenegrin Communication Ability: Effective [employer] Crossing Guard Required: No Beliefs That Will Affect Care: None Current Living Situation: Alone Feels Safe at Home: Yes Gender Identity: Male Assistive Devices: None Allergies Allergies Allergy/AdvReac Type Severity Reaction Status Date / Time gabapentin AdvReac Mild gabapentin Verified 01/04/25 23:26 abuse Home Meds Home Medications Medication Instructions Recorded Confirmed buprenorphine 8 mg-naloxone 2 mg 0.5 - 1 film sublingual 08/02/24 01/07/25 sublingual film DIRECTED PRN NEEDED gabapentin 800 mg tablet 800 mg PO TID 10/22/24 01/07/25 buprenorphine 300 mg/1.5 mL 300 mg subcut MONTHLY 01/04/25 01/07/25 solution,exten.rel.subcutaneous syringe (Sublocade) Previous Rx's Medication Instructions Recorded bictegravir 50 mg-emtricitabine 1 tab PO DAILY #90 tabs 08/26/23 200 mg-tenofovir alafenam 25 mg tablet (Biktarvy) aripiprazole 5 mg tablet (Abilify) 5 mg PO HS 7 days #7 tabs 01/06/25 Results & Data (ED) Vital Signs Vital Signs - 24 hr 01/07/25 16:21 01/07/25 16:50 01/07/25 16:59 Temperature 36.6 C Temperature Source Oral Pulse Rate 75 Pulse Rate [Apical] 65 Pulse Rate from SpO2 Sensor Respiratory Rate 18 19 Respiratory Effort / Characteristics Non-Labored Spontaneous Non-Labored Spontaneous Respiratory Depth Normal Normal Blood Pressure 122/60 Blood Pressure [Right Arm] 113/67 Blood Pressure Mean 80 Blood Pressure Mean [Right Arm] 82 Pulse Oximetry 98 95 97 Oxygen Delivery Method Room Air Room Air Room Air Sepsis Recent Fever Within 48 Hours No Sepsis New/Unexplained Change in Mental Status No Sepsis Action Taken by Nursing No Action Required 01/07/25 17:11 01/07/25 17:15 01/07/25 17:15 Temperature Temperature Source Pulse Rate 60 66 Pulse Rate [Apical] Pulse Rate from SpO2 Sensor 66 Respiratory Rate 17 Respiratory Effort / Characteristics Respiratory Depth Blood Pressure 112/69 Blood Pressure [Right Arm] Blood Pressure Mean 78 Blood Pressure Mean [Right Arm] Pulse Oximetry 94 Oxygen Delivery Method Sepsis Recent Fever Within 48 Hours Sepsis New/Unexplained Change in Mental Status Sepsis Action Taken by Nursing 01/07/25 17:15 01/07/25 17:24 01/07/25 17:30 Temperature Temperature Source Pulse Rate 62 Pulse Rate [Apical] Pulse Rate from SpO2 Sensor 64 Respiratory Rate 8 L Respiratory Effort / Characteristics Respiratory Depth Blood Pressure 112/69 112/68 Blood Pressure [Right Arm] Blood Pressure Mean 78 83 Blood Pressure Mean [Right Arm] Pulse Oximetry 93 Oxygen Delivery Method Sepsis Recent Fever Within 48 Hours Sepsis New/Unexplained Change in Mental Status Sepsis Action Taken by Nursing 01/07/25 17:30 01/07/25 17:45 01/07/25 17:51 Temperature Temperature Source Pulse Rate 61 Pulse Rate [Apical] Pulse Rate from SpO2 Sensor 71 62 Respiratory Rate 19 Respiratory Effort / Characteristics Respiratory Depth Blood Pressure 112/68 Blood Pressure [Right Arm] Blood Pressure Mean 83 Blood Pressure Mean [Right Arm] Pulse Oximetry 95 95 Oxygen Delivery Method Sepsis Recent Fever Within 48 Hours Sepsis New/Unexplained Change in Mental Status Sepsis Action Taken by Nursing 01/07/25 18:03 01/07/25 18:15 01/07/25 18:15 Temperature Temperature Source Pulse Rate 87 Pulse Rate [Apical] Pulse Rate from SpO2 Sensor Respiratory Rate 18 Respiratory Effort / Characteristics Respiratory Depth Blood Pressure 93/47 L 93/47 L Blood Pressure [Right Arm] Blood Pressure Mean 56 56 Blood Pressure Mean [Right Arm] Pulse Oximetry Oxygen Delivery Method Sepsis Recent Fever Within 48 Hours Sepsis New/Unexplained Change in Mental Status Sepsis Action Taken by Nursing 01/07/25 18:15 01/07/25 18:31 01/07/25 18:36 Temperature Temperature Source Pulse Rate 57 L 58 L Pulse Rate [Apical] Pulse Rate from SpO2 Sensor Respiratory Rate 11 L 16 Respiratory Effort / Characteristics Respiratory Depth Blood Pressure 90/46 L Blood Pressure [Right Arm] Blood Pressure Mean 57 Blood Pressure Mean [Right Arm] Pulse Oximetry Oxygen Delivery Method Sepsis Recent Fever Within 48 Hours Sepsis New/Unexplained Change in Mental Status Sepsis Action Taken by Nursing Laboratory Data 01/08/25 04:34 01/08/25 04:34 Lab Results 01/07/25 01/07/25 Range/Units 16:38 16:50 WBC 5.83 (4.8-10.8) K/ul RBC 4.57 L (4.70-6.10) M/uL Hgb 13.5 L (14.0-18.0) g/dl Hct 40.1 L (42.0-52.0) % MCV 87.7 (80.0-100.0) fL MCH 29.5 (25.0-34.0) pg MCHC 33.7 (32.0-36.0) g/dL RDW Std Deviation 39.0 (36.4-46.3) fL RDW Coeff of Estelle 12.2 (11.5-14.5) % Plt Count 238 (130-400) K/uL MPV 10.1 (9.4-12.4) fL Immature Gran % (Auto) 0.2 % Neut % (Auto) 29.8 % Lymph % (Auto) 31.2 % [place] % (Auto) 6.5 % Eos % (Auto) 30.9 % Baso % (Auto) 1.4 % Neut # (Auto) 1.74 (1.40-6.50) K/uL Lymph # (Auto) 1.82 (1.20-3.40) K/uL [place] # (Auto) 0.38 (0.11-0.59) K/uL Eos # (Auto) 1.80 H (0.00-0.50) K/uL Baso # (Auto) 0.08 (0.00-0.20) K/uL Immature Gran # (Auto) 0.01 (0.01-0.20) K/uL ESR 12 (0-15) mm/hr Sodium 139 (136-145) mmol/L Potassium 4.3 (3.5-5.1) mmol/L Chloride 105 (98-107) mmol/L Carbon Dioxide 30 (21-32) mmol/L Anion Gap 4 (3-11) BUN 9 (6-23) mg/dl Creatinine 0.97 (0.6-1.4) mg/dl Est Cr Clr Drug Dosing Not Reportable eGFR 106.37 BUN/Creatinine Ratio 9.3 L (10-20) Glucose 54 L (70-99(Fasting)) mg/dl Lactate 1.7 (0.4-2.0) mmol/L Calcium 9.4 (8.6-10.3) mg/dl Magnesium 1.7 (1.7-2.4) mg/dl Total Bilirubin 0.3 (0.2-1.0) mg/dl Direct Bilirubin 0.0 (0-0.2) mg/dl AST 18 (13-39) U/L ALT 11 (7-52) U/L Alkaline Phosphatase 96 (34-104) U/L Troponin I High Sens 2.8 (0-20) pg/ml C-Reactive Protein < 0.50 (0-0.5) mg/dl Total Protein 7.3 (6.0-8.3) gm/dl Albumin 4.3 (3.4-5.0) gm/dl Procalcitonin < 0.02 (0-0.5) ng/ml Administered Medications Aripiprazole (Aripiprazole 5 Mg Tab) 5 mg PO HS MICHELLE Stop: 02/06/25 20:59 Last Admin: 01/07/25 22:14 Dose: 5 mg Documented By: beba Buprenorphine/Naloxone (Buprenorphine/Naloxone 8/2 Mg Tab) 1 tab SL DAILY MICHELLE Stop: 02/07/25 08:59 Last Admin: 01/08/25 08:17 Dose: 1 tab Documented By: JURGEN Buspirone HCl (Buspirone 5 Mg Tab) 10 mg PO TID MICHELLE Stop: 02/06/25 20:59 Last Admin: 01/08/25 10:26 Dose: Not Given Documented By: Admin: 01/07/25 22:15 Dose: 10 mg Documented By: beba Gabapentin (Gabapentin 800 Mg Tab) 800 mg PO TID MICHELLE Stop: 02/06/25 20:59 Last Admin: 01/08/25 08:28 Dose: 800 mg Documented By: Admin: 01/07/25 22:14 Dose: 800 mg Documented By: beba Dextrose/Sodium Chloride (D5w And Nss) 1,000 mls @ 80 mls/hr IV .[id number] MICHELLE Stop: 01/10/25 19:14 Last Admin: 01/08/25 07:19 Dose: 80 mls/hr Documented By: Infusion: 01/08/25 07:19 Dose: Infused Documented By: Admin: 01/07/25 19:44 Dose: 80 mls/hr Documented By: KADI Vancomycin HCl 1,250 mg/ (Sodium Chloride) 275 mls @ 200 mls/hr IV Q12H MICHELLE Stop: 01/22/25 05:59 Last Infusion: 01/08/25 08:15 Dose: Infused Documented By: Admin: 01/08/25 06:40 Dose: 200 mls/hr Documented By: KADI Miscellaneous (Biktarvy - Order Awaiting Action) 1 each N/A QS MICHELLE Stop: 02/07/25 00:00 Last Admin: 01/08/25 08:55 Dose: Not Given Documented By: Admin: 01/08/25 08:55 Dose: Not Given Documented By: JURGEN Miscellaneous (Remove Nicoderm Patch) 1 each N/A DAILY@0859 [facility] Stop: 02/07/25 08:58 Last Admin: 01/08/25 10:25 Dose: Not Given Documented By: JURGEN Nicotine (Nicotine 21 Mg/24 Hr Tdsy) 1 patch TD QAM MICHELLE Stop: 02/07/25 08:59 Last Admin: 01/08/25 08:17 Dose: 1 patch Documented By: JURGEN Discontinued Medications Alprazolam (Alprazolam 0.5 Mg Tablet) 1 mg PO NOW STA Stop: 01/08/25 09:02 Last Admin: 01/08/25 09:13 Dose: 1 mg Documented By: JURGEN Droperidol (Droperidol 5 Mg/2 Ml Vial) 2.5 mg IV ONE STA Stop: 01/07/25 16:49 Last Admin: 01/07/25 17:25 Dose: 2.5 mg Documented By: ALIN Hydroxyzine HCl (Hydroxyzine Hcl 25 Mg Tab) 25 mg PO NOW STA Stop: 01/07/25 20:09 Last Admin: 01/07/25 20:14 Dose: 25 mg Documented By: KADI Vancomycin HCl 1,750 mg/ (Sodium Chloride) 535 mls @ 200 mls/hr IV NOW ONE Stop: 01/07/25 20:03 Last Infusion: 01/07/25 21:25 Dose: Infused Documented By: Admin: 01/07/25 18:38 Dose: 200 mls/hr Documented By: ALIN Olanzapine (Olanzapine 5 Mg Tablet) 5 mg PO ONE STA Stop: 01/08/25 09:02 Last Admin: 01/08/25 09:13 Dose: 5 mg Documented By: JURGEN Imaging Data Radiologist's Impression: Chest X-Ray 01/07/25 16:27 Chest radiograph, one view History: Sepsis Comparison: None Findings: Single AP view of the chest performed. No focal consolidation or pleural effusion. No pneumothorax. The cardiomediastinal silhouette is within normal limits. Normal pulmonary vascularity. No evidence for lymphadenopathy. No visualized bony or soft tissue abnormality. Impression: Normal chest radiograph Electronically signed by Jonnie Milan 01-07-2025 4:45 PM Discharge Plan Visit Data Chief Complaint: Abnormal Labs/Diagnostic Testing Stated Complaint: + BLOOD CULTURE, ASKED TO COME BACK ED Provider: Aarti Liu Discharge Problem: Blood culture positive Patient Disposition: Admitted As Inpatient Condition: Fair Discharge Instructions Interventions: ED Discharge Assessment Last Done: 01/07/25 20:35
[2025-01-07] MEDS: VANCOMYCIN HCL 1,750 MG in SODIUM CHLORIDE 0.9% 500 ML IV ONE (18:38)
--- NOTE | 2025-01-07 19:14 | History & Physical Report ---
Date of Service January 07, 2025 Assessment & Plan (1) Bacteremia: (2) Right hip joint effusion: (3) HIV (human immunodeficiency virus infection): (4) Hypoglycemia: (5) HCV (hepatitis C virus): (6) Anxiety with agitation: (7) Drug abuse and dependence: (8) Polysubstance abuse: (9) Tobacco dependence: Plan 34yo male with HIV, HepC infection, polysubstance abuse (h/o heroin, methamphetamine, cocaine, tobacco), ADHD, anxiety, vaping associated lung injury, and ?right hip infection s/p right hip surgery x 2 at [facility]. He presented to the [facility] ER on 01/04 with a fall, nausea, vomiting, tremors/shakiness, weakness of his legs, confusion, and head injury. He was admitted to the hospital and underwent an extensive work-up including CT head/neck, MRI Brain, EEG, and had psychiatric consultation. He was noted to be delusional and hallucinating, and there was concern that perhaps he was withdrawing from benzodiazepines (xanax). He was offered ativan during the hospital stay but requested xanax instead. It was later determined that he had been snorting wellbutrin & gabapentin. #bacteremia - -01/04/25 blood cx's 2/4 bottles with micrococcus -typically this organism is a contaminant, but in his severely immunoc ompromised state from HIV this is pathogenic until proven otherwise -pharmacy here at [facility] spoke with infectious disease and they advised hospitalization for Rx, repeat blood cx's, echo, etc. -s/p IV vancomycin in the ER and will continue such -follow repeat cultures -obtained baseline sed rate/crp & surprisingly both were wnl -source....right hip? -patient with chronic, but worsening right hip pain -CT right hip appears to show considerable inflammation in the right hip joint -will inquire with IR on Thursday to see if we can get IR drainage -consider formal orthopedic consultation #right hip - abnormal hip CT with joint fluid/inflammation - -may be the source for his bacteremia -micrococcus is typically skin isa, but can invade joints in immunocompromised individuals -see above #HIV infection - -CD4 count is pending - dispatched on 01/04/25 -cont triple therapy with bictegravir/emtricitabine/tenofovir -uncertain of compliance with such -obtain HIV viral load #HepC infection - -by report -could consider Hep C RNA to determine if he has active disease -not a candidate for Rx at this time if indeed he has active infection #polysubstance abuse - -h/o heroin, cocaine, meth, etc. #encephalopathy - -previously thought 2nd to withdrawal from benzodiazepines -possibly metabolic from his bacteremia -consider checking ammonia level -recent MRI brain w/o acute findings #hypoglycemia - -recent poor oral intake -serial BSGs -add dextrose to IV fluids #tobacco dependence - -nicoderm patch #ADHD - -per the record #chronic suboxone use - -cont suboxone TID -he is on sublocade 300mg monthly by report #mood disorder - -substance induced from polysubstance abuse? -anxiety disorder? -psychotic disorder? -other vs combination? -seen by psych during prior admission -cont abilify nightly -cont gabapentin TID -avoid wellbutrin - patient apparently was snorting such in the recent past? -consider buspar for anxiety but doubt patient will take it -avoid benzos if at all possible #DVT proph - -until IR drainage of right hip is done defer on chemical means for now History of Present Illness Chief Complaint: positive blood cultures Primary Care Provider: NO PCP 34yo male with HIV, HepC infection, polysubstance abuse (h/o heroin, methamphetamine, cocaine, tobacco), ADHD, anxiety, vaping associated lung injury, and ?right hip infection s/p right hip surgery x 2 at [facility]. He presented to the [facility] ER on 01/04 with a fall, nausea, vomiting, tremors/shakiness, weakness of his legs, confusion, and head injury. He was admitted to the hospital and underwent an extensive work-up including CT head/neck, MRI Brain, EEG, and had psychiatric consultation. He was noted to be delusional and hallucinating, and there was concern that perhaps he was withdrawing from benzodiazepines (xanax). He was offered ativan during the hospital stay but requested xanax instead. It was later determined that he had been snorting wellbutrin & gabapentin. His mental status improved during the brief stay and he was d/c on 01/06/25. Shortly after his discharge on 01/06/25 his blood cultures from the recent hospital stay turned positive for micrococcus. He was contacted at home and asked to return to the hospital for IV antibiotic therapy. Indeed he returned to the [facility] ER for treatment. During my assessment he was quite sleepy as he had received droperidol 2.5mg IV x 1. However, multiple times he asked for "something for anxiety" and that he was "restless." He was able to tell me he "was feeling warm" the last few days but a review of his 01/05-01/06 hospitalization showed no documented fevers. He also complained of right hip pain for "about a year" but much worse of late. I noted that he had a 2 inch leg-length discrepancy (right leg shorter than left) and he said "I had 2 surgeries on the hip at [place]." Other than the above he was unable to give additional history due to sleepiness. By report the ER pharmacy discussed his case with infectious disease extensively and IV vancomycin was advised for the micrococcus. ID also advised repeat blood cultures & echo. Allergies Allergy/AdvReac Type Severity Reaction Status Date / Time gabapentin AdvReac Mild gabapentin Verified 01/04/25 23:26 abuse Home Medications Medication Instructions Recorded Confirmed Type bictegravir 50 mg-emtricitabine 1 tab PO DAILY #90 tabs 08/26/23 01/07/25 Rx 200 mg-tenofovir alafenam 25 mg tablet (Biktarvy) buprenorphine 8 mg-naloxone 2 mg 0.5 - 1 film sublingual 08/02/24 01/07/25 History sublingual film DIRECTED PRN NEEDED gabapentin 800 mg tablet 800 mg PO TID 10/22/24 01/07/25 History buprenorphine 300 mg/1.5 mL 300 mg subcut MONTHLY 01/04/25 01/07/25 History solution,exten.rel.subcutaneous syringe (Sublocade) aripiprazole 5 mg tablet (Abilify) 5 mg PO HS 7 days #7 tabs 01/06/25 01/07/25 Rx Past Med/Surg History Problem List (Updated 01/07/25 @ 21:35 by Collins Villa MD) Tobacco dependence Polysubstance abuse Right hip joint effusion Hypoglycemia Bacteremia Labile mood Encephalopathy Ground-level fall Myoclonus (Acute) Fall (Acute) Wheezing Pneumonitis Medical History (Updated 01/07/25 @ 21:35 by Collins Villa MD) 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) Right hip pain HIV (human immunodeficiency virus infection) HCV (hepatitis C virus) ADHD Anxiety with agitation Drug abuse and dependence Acute respiratory failure with hypoxia Hypoxia History of heroin abuse Methamphetamine abuse Cocaine abuse Surgical History (Updated 01/07/25 @ 21:16 by Collins Villa MD) History of orthopedic surgery R ABDI and replacement of hardware; ~2018 - [facility] Social History Smoking Status: Current every day smoker Tobacco Type: E-cigarettes / Vaping Cigarettes Per Day: x1 pack; Second Hand Exposure: Yes; Do You Dip or Chew Tobacco: No; Hx Alcohol Use: No Hx Substance Use: Yes Last Used Substance: Just Prior to Arrival Last Used Substance Other:: methadone Preferred Language: Argentine Communication Ability: Effective Office Professional Required: No Beliefs That Will Affect Care: None Current Living Situation: Alone Feels Safe at Home: Yes Gender Identity: Male Assistive Devices: None Review of Systems Review of Systems: Unobtainable due to cognitive status Physical Exam Physical Exam: gen - very sleepy, does wake up to his name being called, but falls back asleep easily eyes - PERRL HENT - very poor dentition, MM dry neck - no JVD, no goiter, no lymph nodes heart - bradycardic, s1 s2, no murmur lungs - CTA b/l abd - soft NT ND BS+; no HSM ext/musculo - right leg is at least 2 inches shorter than the left leg; considerable muscle wasting of all muscles of the right thigh, right hip region, and right calf vs the left leg; no peripheral edema; log-rolling of right hip causes pain; passive ROM of right hip severely restricted vs the left hip vascular - pulses b/l feet 2+ skin - numerous abrasions and skin lesions on legs b/l psych - a/o x 2, very sleepy neuro - no focal deficits, no facial droop, DTRs 2+ b/l upper/lower exts Results & Data Results & Data Vital Signs (Past 12 Hours) Vital Signs Temp Pulse Pulse Resp BP BP Pulse Ox 01/07/25 19:04 53 L 16 99/55 L 94 01/07/25 18:36 58 L 16 01/07/25 18:31 90/46 L 01/07/25 18:15 57 L 11 L 01/07/25 18:15 93/47 L 01/07/25 18:15 93/47 L 01/07/25 18:03 87 18 01/07/25 17:51 61 19 95 01/07/25 17:45 95 01/07/25 17:30 112/68 01/07/25 17:30 112/68 01/07/25 17:24 62 8 L 93 01/07/25 17:15 112/69 01/07/25 17:15 112/69 01/07/25 17:15 66 17 94 01/07/25 17:11 60 01/07/25 16:59 97 01/07/25 16:50 65 19 113/67 95 01/07/25 16:21 36.6 C 75 18 122/60 98 O2 Del Method 01/07/25 16:21 Room Air Laboratory Results Laboratory Results - last 24 hr 01/07/25 01/07/25 16:38 16:50 WBC 5.83 RBC 4.57 L Hgb 13.5 L Hct 40.1 L MCV 87.7 MCH 29.5 MCHC 33.7 RDW Std Deviation 39.0 RDW Coeff of Estelle 12.2 Plt Count 238 MPV 10.1 Immature Gran % (Auto) 0.2 Neut % (Auto) 29.8 Lymph % (Auto) 31.2 [place] % (Auto) 6.5 Eos % (Auto) 30.9 Baso % (Auto) 1.4 Neut # (Auto) 1.74 Lymph # (Auto) 1.82 [place] # (Auto) 0.38 Eos # (Auto) 1.80 H Baso # (Auto) 0.08 Immature Gran # (Auto) 0.01 ESR 12 Sodium 139 Potassium 4.3 Chloride 105 Carbon Dioxide 30 Anion Gap 4 BUN 9 Creatinine 0.97 Est Cr Clr Drug Dosing Not Reportable eGFR 106.37 BUN/Creatinine Ratio 9.3 L Glucose 54 L Lactate 1.7 Calcium 9.4 Magnesium 1.7 Total Bilirubin 0.3 Direct Bilirubin 0.0 AST 18 ALT 11 Alkaline Phosphatase 96 Troponin I High Sens 2.8 C-Reactive Protein Pending Total Protein 7.3 Albumin 4.3 Procalcitonin < 0.02 Diagnostic Findings Chest X-Ray 01/07/25 16:27 Chest radiograph, one view History: Sepsis Comparison: None Findings: Single AP view of the chest performed. No focal consolidation or pleural effusion. No pneumothorax. The cardiomediastinal silhouette is within normal limits. Normal pulmonary vascularity. No evidence for lymphadenopathy. No visualized bony or soft tissue abnormality. Impression: Normal chest radiograph Electronically signed by Jonnie Milan 01-07-2025 4:[address] 01/07/25 19:06 CT of the right hip without contrast Technique: Noncontrast axial images of the right hip.Coronal/sagittal reformatted images made available for review Reference made to findings plain film dated 03/06/2023 Findings: Significant amount of soft tissue swelling involving the right hip joint capsule with resorption of the femoral head and extensive productive change about both the proximal aspect of the femur as well as the acetabulum. There is a tubular central lucency present which suggests the appearance of the right hip is secondary to explantation of a right hip arthroplasty with subsequent articulation of the right hip joint. The presence or absence of an abscess cannot be assessed on this unenhanced CT scan. There is likely a significant amount of fluid and inflammatory change within the right hip joint space. Impression Exam limited secondary to lack of IV contrast Presumed postoperative disarticulation of the right hip stable when compared with the prior exam Large amount of inflammatory change and fluid within the right hip joint space which is suboptimally evaluated on this exam. Electronically signed by Maurilio Pryor 01-07-2025 8:07 PM blood culture: Spec: [id number] Collected: 01/04/25 Received: 01/05/250000 Subm Dr: Agnieszka Corley MD Source: Blood OV Order: Ordered: Blood Culture Comments: Blood culture drawn venously from Left Arm. Procedure Result Verified Site Blood Culture Aerobic Preliminary 01/07/25-1435 Organism 1 Micrococcus luteus Sens No Sensitivities to Follow Phoned positive Blood Culture Gram Stain report to AGNIESZKA HUANG on 01/06/25 at 1051 by [id number]. [place] [id number]. Blood Culture Anaerobic Preliminary 01/07/25-0101 No growth in Anaerobic bottle after 48 hours. Code Status & VTE Plan VTE Prophylaxis Plan VTE Prophylaxis will be ordered: No Reason for no VTE drug order: Treatment not indicated PG Care Time/CCT Total # of Minutes Spent Total Time Spent with Patient: Total time spent is greater than 50% in coordination of care (as documented) at patient's floor/unit and/or counseling patient: Coding Level of Care Code 52487 INT INP/OBS CARE 3/75MIN Diagnoses Bacteremia R78.81 Right hip joint effusion M25.451 HIV (human immunodeficiency virus infection) B20 Hypoglycemia E16.2 HCV (hepatitis C virus) B19.20 Anxiety with agitation F41.9; R45.1 Drug abuse and dependence F19.20 Polysubstance abuse F19.10 Tobacco dependence F17.200
[2025-01-07] MEDS: D5W AND NSS 1,000 ML IV SCH (19:44)
--- NOTE | 2025-01-07 20:08 | CT Scan Report ---
CT of the right hip without contrast Technique: Noncontrast axial images of the right hip.Coronal/sagittal reformatted images made available for review Reference made to findings plain film dated 03/06/2023 Findings: Significant amount of soft tissue swelling involving the right hip joint capsule with resorption of the femoral head and extensive productive change about both the proximal aspect of the femur as well as the acetabulum. There is a tubular central lucency present which suggests the appearance of the right hip is secondary to explantation of a right hip arthroplasty with subsequent articulation of the right hip joint. The presence or absence of an abscess cannot be assessed on this unenhanced CT scan. There is likely a significant amount of fluid and inflammatory change within the right hip joint space. Impression Exam limited secondary to lack of IV contrast Presumed postoperative disarticulation of the right hip stable when compared with the prior exam Large amount of inflammatory change and fluid within the right hip joint space which is suboptimally evaluated on this exam. Electronically signed by Maurilio Pryor 01-07-2025 8:07 PM
[2025-01-07] MEDS ORDERED: diphenhydrAMINE 50 MG/ML VIAL IV PRN (20:43)
[2025-01-07] MEDS ORDERED: POLYETHYLENE (MIRALAX) 17 GM PACK PO PRN (20:43)
[2025-01-07] MEDS ORDERED: ALUMINUM/MAGNESIUM SUSP 30 ML UDC PO PRN (20:43)
[2025-01-07] MEDS ORDERED: ACETAMINOPHEN 325 MG TAB PO PRN (20:43)
[2025-01-07] MEDS ORDERED: MAGNESIUM HYDROXIDE SUSP 30 ML UDC PO PRN (20:43)
[2025-01-07] MEDS: ARIPiprazole 5 MG TAB PO SCH (22:14)
[2025-01-07] MEDS: GABAPENTIN 800 MG TAB PO SCH (22:14)
[2025-01-07] MEDS: busPIRone 5 MG TAB PO SCH (22:15)
[2025-01-07 22:57] LABS: Appearance Urine Clear (Clear); Bacteria Urine Automated None Seen (None Seen); Cast Urine Automated 0-2 /lpf (0-2); Epithelial Cell Urine Auto 0-2 /hpf (0-2); Glucose Urine UA Negative (Negative); RBC Urine Automated 0-2 /hpf (0-2); WBC Urine Automated 21-50 /hpf (0-5)
[2025-01-08 05:02] LABS: Hematocrit (blood only) 36.8 % (42.0-52.0); Hemoglobin 12.1 g/dl (14.0-18.0); Immature Granulocytes # (auto) 0.01 K/uL (0.01-0.20); Immature Granulocytes % (auto) 0.2 %; Mean Corpuscular Hemoglobin 29.3 pg (25.0-34.0); Mean Corpuscular Volume 89.1 fL (80.0-100.0); Platelet Count 196 K/uL (130-400); RDW Standard Deviation 39.7 fL (36.4-46.3); Red Blood Count 4.13 M/uL (4.70-6.10); White Blood Count 4.81 K/ul (4.8-10.8)
[2025-01-08 05:18] LABS: Anion Gap 4.0 (3-11); Blood Urea Nitrogen 9.0 mg/dl (6-23); Calcium 8.6 mg/dl (8.6-10.3); Carbon Dioxide 27.0 mmol/L (21-32); Chloride 112.0 mmol/L (98-107); Creatinine Clr Calc Pharmacy 110.2 ml/min; Glucose 81.0 mg/dl (70-99(Fasting)); Potassium 4.2 mmol/L (3.5-5.1); Sodium 143.0 mmol/L (136-145)
[2025-01-08] MEDS: VANCOMYCIN HCL 1,250 MG in SODIUM CHLORIDE 0.9% 250 ML IV SCH (06:40)
[2025-01-08] MEDS: NICOTINE 21 MG/24 HR TDSY TD SCH (08:17)
[2025-01-08] MEDS: BUPRENORPHINE/NALOXONE 8/2 MG TAB SL SCH (08:17)
[2025-01-08] MEDS: REMOVE NICODERM PATCH SCH (10:25)
--- NOTE | 2025-01-08 10:29 | Pharmacy Report ---
Pharmacy PK ABX Note - Date of Service January 08, 2025 - Assessment and Plan Assessment * 34 year old M receiving vancomycin for treatment of Micrococcus luteus bacteremia. Possible contaminant, but must treat as true bacteremia for now unless/until able to confirm contaminants. Patient at risk for true bacteremia and endocarditis as well. * Pertinent microbiologic data includes: * 01/04 blood cultures: 2/2 Micrococcus luteus (from prior admission. Patient was called back to the ED and re-admitted on 01/07) * 01/07 blood cultures @1638,1650: pending (note - these were obtained *prior* to initiation of antibiotics that would cover Micrococcus luteus) * 01/07 urine culture: pending * PMH: history of heroin, methamphetamine, and cocaine abuse, anxiety with agitation, ADHD, hepatitis C, HIV, history of e-cigarettes/vaping associated lung injury * Formal ID consult pending - assessment anticipated tomorrow. Preliminary urgent non-formal consult/discussion over the weekend - vancomycin reasonable for now. * SCr stable and at/near baseline Plan Vancomycin * Loading dose: 1750 mg IV x1 on 01/07 @ 1838 * Maintenance dose: 1250 mg IV every 12 hours * Regimen is predicted to achieve target AUC/CLYDE of 400-600 mg/L.hr * Random level ordered for: 1013 AM Pharmacy will continue to follow and will adjust dose/frequency as necessary. Thank you. Pharmacy has transitioned to AUC monitoring for vancomycin. AUC/CLYDE is the preferred PK/PD target and is associated with decreased risk of nephrotoxicity compared to traditional trough targets.
--- NOTE | 2025-01-08 17:29 | Hospitalist Progress Note ---
Date of Service January 08, 2025 Assessment & Plan (1) Bacteremia: (2) Right hip joint effusion: (3) HIV (human immunodeficiency virus infection): (4) Hypoglycemia: (5) HCV (hepatitis C virus): (6) Anxiety with agitation: (7) Drug abuse and dependence: (8) Polysubstance abuse: (9) Tobacco dependence: (10) Back pain: Plan 34yo male with HIV, HepC infection, polysubstance abuse (h/o heroin, methamphetamine, cocaine, tobacco), ADHD, anxiety, vaping associated lung injury, and ?right hip infection s/p right hip surgery x 2 at [facility]. He presented to the [facility] ER on 01/04 with a fall, nausea, vomiting, tremors/shakiness, weakness of his legs, confusion, and head injury. He was admitted to the hospital and underwent an extensive work-up including CT head/neck, MRI Brain, EEG, and had psychiatric consultation. He was noted to be delusional and hallucinating, and there was concern that perhaps he was withdrawing from benzodiazepines (xanax). He was offered ativan during the hospital stay but requested xanax instead. It was later determined that he had been snorting wellbutrin & gabapentin. During the previous hospital stay he had blood cultures drawn on 01/04 and 2 out of 4 bottles returned + with micrococcus. He was called at home and asked to return to the hospital. #bacteremia - -01/04/25 blood cx's 2/4 bottles with micrococcus -typically this organism is a contaminant, but in his severely immuno compromised state from HIV this is pathogenic until proven otherwise -pharmacy here at [facility] spoke with infectious disease and they advised repeat blood cx's, echo, IV vancomycin -day #2 of vancomycin -repeat cultures thus far negative -obtained baseline sed rate/crp & surprisingly both were wnl -source....right hip? -patient with chronic, but worsening right hip pain -CT right hip appears to show considerable inflammation in the right hip joint along with joint fluid -spoke with on-call ortho Dr Park today who recommended joint aspiration by IR on Thursday, then formal consult with ortho as well -he stated that perhaps the R hip - if indeed it is infected - could potentially be washed out via arthroscope?? -in addition to the R hip pain, he is also c/o t-spine & l-spine pain -will obtain T-spine and L-spine MRIs with & without contrast - r/o discitis, etc. #right hip - abnormal hip CT with joint fluid/inflammation - -may be the source for his bacteremia -micrococcus is typically skin isa, but can invade joints in immunocompromised individuals -see above #HIV infection - -CD4 count is pending - dispatched on 01/04/25 -cont triple therapy with bictegravir/emtricitabine/tenofovir -uncertain of compliance with such -obtain HIV viral load as well #HepC infection - -by report -obtain Hep C RNA to determine if he has active disease -not a candidate for Rx at this time if indeed he has active infection #polysubstance abuse - -h/o heroin, cocaine, meth, etc. #encephalopathy - -previously thought 2nd to withdrawal from benzodiazepines -possibly metabolic from his bacteremia -recent MRI brain w/o acute findings #hypoglycemia - at time of admission - -recent poor oral intake likely contributed the most -serial BSGs since then have been wnl -he is eating better now -can stop IV fluids #tobacco dependence - -nicoderm patch #ADHD - -per the record #chronic suboxone use - -cont suboxone TID -he is on sublocade 300mg monthly by report as well #mood disorder - -substance induced from polysubstance abuse? -anxiety disorder? -psychotic disorder? -other vs combination? -seen by psych during prior admission -cont abilify nightly -cont gabapentin TID -avoid wellbutrin - patient apparently was snorting such in the recent past? -he initially refused the buspar this am, stating he would only take it if we gave him wellbutrin -due to severe agitation this am gave zyprex 5mg po x 1 and did order xanax for the extreme anxiety -ideally would avoid benzos entirely, but at this point we will do all we can do to keep him comfortable so that we can treat the bacteremia and complete the work-up for the hip issues/etc. #DVT proph - -until IR drainage of right hip is done defer on chemical means for now Admission and Anticipated Discharge Date Admission Date: January 07, 2025 Subjective this am I had been called by staff that patient initially was very anxious, then started to become very upset he was asking for xanax for the anxiety behavior was escalating ultimately gave olanzapine 5mg x 1 (oral) along with xanax 1mg x 1 with such he calmed down and anxiety was improved later in the day during rounds he apologized for his behavior earlier in the day stated "I just have bad anxiety" he c/o low and mid back pain started "a few days ago" c/o R hip pain - chronic, but acutely worse in the last couple of weeks hurts in the R groin and lateral aspect of the hip denies L hip pain Review of Systems Review of Systems: gen - no fevers cv - no chest pain pulm - no dyspnea GI - no abd pain Physical Exam Physical Exam: gen - more awake/more alert today; calm during my visit (which was in the afternoon); c/o anxiety HENT - very poor dentition, MM more moist today neck - no JVD heart - bradycardic, s1 s2, no murmur lungs - CTA b/l abd - soft NT ND BS+; no HSM ext/musculo - right leg is at least 2+ inches shorter than the left leg; considerable muscle wasting of all muscles of the right thigh, right hip region, and right calf vs the left leg; no peripheral edema; log-rolling of right hip causes pain; passive ROM of right hip severely restricted vs the left hip; passive ROM causes pain vascular - pulses b/l feet 2+ skin - numerous abrasions and skin lesions on legs b/l back - tender to palpation over l-spine and t-spine regions psych - more awake/alert today Results & Data Results & Data Vital Signs (Past 12 Hours) Vital Signs Pulse Pulse Resp BP Pulse Ox O2 Del Method 01/08/25 15:29 48 L 01/08/25 15:00 53 L 16 132/76 94 Room Air 01/08/25 11:00 50 L 17 112/78 96 Room Air 01/08/25 07:22 56 L 14 122/76 99 Room Air 01/08/25 07:00 54 L 01/08/25 05:46 61 16 111/84 98 Room Air Laboratory Results Laboratory Results - last 48 hr 01/07/25 01/07/25 01/07/25 16:38 16:50 22:12 WBC 5.83 RBC 4.57 L Hgb 13.5 L Hct 40.1 L MCV 87.7 MCH 29.5 MCHC 33.7 RDW Std Deviation 39.0 RDW Coeff of Estelle 12.2 Plt Count 238 MPV 10.1 Immature Gran % (Auto) 0.2 Neut % (Auto) 29.8 Lymph % (Auto) 31.2 [place] % (Auto) 6.5 Eos % (Auto) 30.9 Baso % (Auto) 1.4 Neut # (Auto) 1.74 Lymph # (Auto) 1.82 [place] # (Auto) 0.38 Eos # (Auto) 1.80 H Baso # (Auto) 0.08 Immature Gran # (Auto) 0.01 ESR 12 Sodium 139 Potassium 4.3 Chloride 105 Carbon Dioxide 30 Anion Gap 4 BUN 9 Creatinine 0.97 Est Cr Clr Drug Dosing Not Reportable eGFR 106.37 BUN/Creatinine Ratio 9.3 L Glucose 54 L POC Glucose Lactate 1.7 Calcium 9.4 Magnesium 1.7 Total Bilirubin 0.3 Direct Bilirubin 0.0 AST 18 ALT 11 Alkaline Phosphatase 96 Troponin I High Sens 2.8 C-Reactive Protein < 0.50 Total Protein 7.3 Albumin 4.3 Procalcitonin < 0.02 Urine Color Yellow Urine Appearance Clear Urine pH 7.0 Ur Specific [place] 1.012 Urine Protein Negative Urine Glucose (UA) Negative Urine Ketones Negative Urine Blood Negative Urine Nitrite Negative Urine Bilirubin Negative Urine Urobilinogen Negative Ur Leukocyte Esterase 2+ H Urine WBC (Auto) 21-50 H Urine RBC (Auto) 0-2 U Hyaline Cast (Auto) 0-2 U Epithel Cells (Auto) 0-2 Urine Bacteria (Auto) None Seen Urine Comment 01/08/25 01/08/25 01:02 04:34 WBC 4.81 RBC 4.13 L Hgb 12.1 L Hct 36.8 L MCV 89.1 MCH 29.3 MCHC 32.9 RDW Std Deviation 39.7 RDW Coeff of Estelle 12.2 Plt Count 196 MPV 10.0 Immature Gran % (Auto) 0.2 Neut % (Auto) 28.1 Lymph % (Auto) 32.8 [place] % (Auto) 7.5 Eos % (Auto) 30.4 Baso % (Auto) 1.0 Neut # (Auto) 1.35 L Lymph # (Auto) 1.58 [place] # (Auto) 0.36 Eos # (Auto) 1.46 H Baso # (Auto) 0.05 Immature Gran # (Auto) 0.01 ESR Sodium 143 Potassium 4.2 Chloride 112 H Carbon Dioxide 27 Anion Gap 4 BUN 9 Creatinine 0.90 Est Cr Clr Drug Dosing 110.2 eGFR 116.37 BUN/Creatinine Ratio 10.0 Glucose 81 POC Glucose 99 Lactate Calcium 8.6 Magnesium Total Bilirubin Direct Bilirubin AST ALT Alkaline Phosphatase Troponin I High Sens C-Reactive Protein Total Protein Albumin Procalcitonin Urine Color Urine Appearance Urine pH Ur Specific [place] Urine Protein Urine Glucose (UA) Urine Ketones Urine Blood Urine Nitrite Urine Bilirubin Urine Urobilinogen Ur Leukocyte Esterase Urine WBC (Auto) Urine RBC (Auto) U Hyaline Cast (Auto) U Epithel Cells (Auto) Urine Bacteria (Auto) Urine Comment Diagnostic Findings Microbiology 01/07/25 16:50 Blood Aerobic Blood Culture - Preliminary No growth in Aerobic bottle after 24 hours. 01/07/25 16:50 Blood Anaerobic Blood Culture - Preliminary No growth in Anaerobic bottle after 24 hours. 01/07/25 16:38 Blood Aerobic Blood Culture - Preliminary No growth in Aerobic bottle after 24 hours. 01/07/25 16:38 Blood Anaerobic Blood Culture - Preliminary No growth in Anaerobic bottle after 24 hours. PG Care Time/CCT Total # of Minutes Spent Total Time Spent with Patient: Total time spent is greater than 50% in coordination of care (as documented) at patient's floor/unit and/or counseling patient: Coding Level of Care Code 05279 SUB INP/OBS CARE 3/50MIN Diagnoses Bacteremia R78.81 Right hip joint effusion M25.451 HIV (human immunodeficiency virus infection) B20 Hypoglycemia E16.2 HCV (hepatitis C virus) B19.20 Anxiety with agitation F41.9; R45.1 Drug abuse and dependence F19.20 Polysubstance abuse F19.10 Tobacco dependence F17.200 Back pain M54.9
--- NOTE | 2025-01-08 19:12 | Electrocardiogram Report ---
Test Reason : Blood Pressure : */* mmHG Vent. Rate : 58 BPM Atrial Rate : 58 BPM P-R Int : 164 ms QRS Dur : 84 ms QT Int : 396 ms P-R-T Axes : 65 25 61 degrees QTcB Int : 388 ms Sinus bradycardia Otherwise normal ECG When compared with ECG of 04-Jan-2025 23:05, T wave inversion no longer evident in Inferior leads Confirmed by Bruno Avalos ([id number]) on 01/08/2025 7:12:10 PM Referred By: REFERRED SELF Confirmed By: Bruno Avalos
[2025-01-08] MEDS: KETOROLAC 30 MG/ML VIAL IV PRN (22:26)
[2025-01-09] MEDS: GADOBUTROL 30ML VIAL IV ONE (00:23)
--- NOTE | 2025-01-09 01:34 | Magnetic Resonance Report ---
EXAM: MR lumbar spine wo/w con CLINICAL HISTORY: low back pain, bacteremia, r/o discitis TECHNIQUE: Multisequential and multiplanar images of the lumbar spine were acquired for review without and with contrast. COMPARISON: none FINDINGS: There is loss of lumbar lordosis, likely due to muscle spasm. Degenerative changes are present in the visualized spine in the form of marginal osteophytes, Schmorl's nodes, and type II Modic changes at the endplates. There are disc dehydrative changes in the intervertebral discs. The conus medullaris terminates at approximately L1. Alignment of the lumbar spine is normal. Bone marrow signal is normal. There is no evidence of compression fracture. Limited evaluation of the sacrum is normal. The visualized paravertebral soft tissues are unremarkable. T11-T12: Evaluated on sagittal images only. There is no disc bulge, canal stenosis, or neuroforaminal narrowing. Subarticular recesses are patent. T12-L1: Evaluated on sagittal images only. There is no disc bulge, canal stenosis, or neuroforaminal narrowing. Subarticular recesses are patent. L1-L2: There is no disc bulge, canal stenosis, or neuroforaminal narrowing. Subarticular recesses are patent. L2-L3: There is no disc bulge, canal stenosis, or neuroforaminal narrowing. Subarticular recesses are patent. L3-L4: There is no disc bulge, canal stenosis, or neuroforaminal narrowing. Subarticular recesses are patent. L4-L5: There is no disc bulge, canal stenosis, or neuroforaminal narrowing. Subarticular recesses are patent. L5-S1: There is a diffuse disc bulge indenting the ventral thecal sac, without canal stenosis. Mild bilateral neuroforaminal narrowing is present. No enhancing lesion seen. No abnormal enhancement in any disc or end plates/vertebra. IMPRESSION: 1. Lumbar spondylosis. 2. Diffuse disc bulge at the L5-S1 intervertebral disc. 3. No other disc bulges or evidence of discitis. Electronically signed by Marcus Toney 01-09-2025 01:34 AM
--- NOTE | 2025-01-09 01:36 | Magnetic Resonance Report ---
EXAM: MR thoracic spine wo/w con CLINICAL HISTORY: bacteremia, mid-thoracic back pain; eval discitis TECHNIQUE: Multisequential and multiplanar images of the thoracic spine were reviewed without and with contrast. COMPARISON: none FINDINGS: Degenerative changes are present in the form of Schmorl's nodes at the endplates of the lower thoracic vertebrae. Possible type 1 Modic changes are noted at the inferior endplate of the T12 vertebra. The cord is normal in caliber and signal. No abnormal bone marrow signal is demonstrated throughout the thoracic spine to suggest a fracture. C7-T1: No disc bulge. No canal stenosis. No neuroforaminal narrowing. T1-T2: No disc bulge. No canal stenosis. No neuroforaminal narrowing. T2-T3: No disc bulge. No canal stenosis. No neuroforaminal narrowing. T3-T4: No disc bulge. No canal stenosis. No neuroforaminal narrowing. T4-T5: No disc bulge. No canal stenosis. No neuroforaminal narrowing. T5-T6: No disc bulge. No canal stenosis. No neuroforaminal narrowing. T6-T7: No disc bulge. No canal stenosis. No neuroforaminal narrowing. T7-T8: No disc bulge. No canal stenosis. No neuroforaminal narrowing. T8-T9: No disc bulge. No canal stenosis. No neuroforaminal narrowing. T9-T10: No disc bulge. No canal stenosis. No neuroforaminal narrowing. T10-T11: No disc bulge. No canal stenosis. No neuroforaminal narrowing. T11-T12: No disc bulge. No canal stenosis. No neuroforaminal narrowing. The paravertebral soft tissues are unremarkable. IMPRESSION: Mild thoracic spondylosis. Possible type 1 Modic changes at the inferior endplate of the T12 vertebra. No areas of abnormal contrast enhancement to suggest discitis. Electronically signed by Marcus Toney 01-09-2025 01:36 AM
[2025-01-09] MEDS: VANCOMYCIN LEVEL ONE (06:01)
[2025-01-09 06:45] LABS: Creatinine Clr Calc Pharmacy 103.3 ml/min
--- NOTE | 2025-01-09 07:52 | Pharmacy Report ---
Pharmacy PK ABX Note - Date of Service January 09, 2025 - Assessment and Plan Assessment 01/09 * Random vancomycin level this AM was 11.3 mcg/ml - current vancomycin regimen predicted to achieve goal AUC/CLYDE 400-600 therefore will continue current regimen. ID consulted. 01/08 * 34 year old M receiving vancomycin for treatment of Micrococcus luteus bacteremia. Possible contaminant, but must treat as true bacteremia for now unless/until able to confirm contaminants. Patient at risk for true bacteremia and endocarditis as well. * Pertinent microbiologic data includes: * 01/04 blood cultures: 2/2 Micrococcus luteus (from prior admission. Patient was called back to the ED and re-admitted on 01/07) * 01/07 blood cultures @1638,[id number]: pending (note - these were obtained *prior* to initiation of antibiotics that would cover Micrococcus luteus) * 01/07 urine culture: pending * PMH: history of heroin, methamphetamine, and cocaine abuse, anxiety with agitation, ADHD, hepatitis C, HIV, history of e-cigarettes/vaping associated lung injury * Formal ID consult pending - assessment anticipated tomorrow. Preliminary urgent non-formal consult/discussion over the weekend - vancomycin reasonable for now. * SCr stable and at/near baseline Plan Vancomycin * Continue 1250 mg iv q 12 hours Pharmacy will continue to follow and will adjust dose/frequency as necessary. Thank you. Pharmacy has transitioned to AUC monitoring for vancomycin. AUC/CLYDE is the preferred PK/PD target and is associated with decreased risk of nephrotoxicity compared to traditional trough targets.
--- NOTE | 2025-01-09 09:41 | Orthopedic Consultation ---
Date of Service January 09, 2025 Assessment & Plan (1) Right hip joint effusion: * Case/imaging reviewed and discussed with Dr Park * Complex history regarding right hip, multiple past infection and surgery including Girdlestone * Positive blood cultures, hip effusion on CT, suspected source R hip * Recommend IR aspiration for fluid analysis and confirmation. Please obtain synovial fluid analysis and culture * If positive for infection OR washout would be indicated. * Abx plan per hospital medicine/ID teams * Weight bearing status: activity as tolerated * Daily treatment: Physical Therapy/ Occupational Therapy per protocol * Pain control * Disposition: TBD * Remainder care per primary team * Will continue to follow History of Present Illness Reason for Consultation: R hip pain Requesting Physician: . Attending Physician: José Antonio Ray MD . Patient is a 34 y/o male with right hip pain. PMH including HIV, HepC infection, polysubstance abuse (h/o heroin, methamphetamine, cocaine, tobacco), ADHD, anxiety, vaping associated lung injury. Complicated hisotry regarding R hip, reports past joint infection requiring multiple surgeries ultimately including Girdlestone at [place]. Presents to hospital with worsening right hip pain and recent posiitve blood culture. Initially presents to ED last week but left AMA, blood cultures draw at that time now (+) 2/2 for micrococcus, was notified and returned to hospital for further evaluation and care. Current workup including CT right hip demonstrates post-surgical changes from Girdlestone, inflammatory fluid collection. WBC 4, C-RP and ESR pending. Admitted to hospital medicine team. Orthopedics consulted for management recommendations. At time of exam p atient lying comfortably in bed, no acute distress. Reports worsening right hip pain over the past week which is now significantly limiting his mobility. Reports subjective fevers, chills, "all of it". Priot to this no issues with hip after his last surgery, ambulates. Allergies Allergy/AdvReac Type Severity Reaction Status Date / Time gabapentin AdvReac Mild gabapentin Verified 01/04/25 23:26 abuse Home Medications Medication Instructions Recorded Confirmed Type bictegravir 50 mg-emtricitabine 1 tab PO DAILY #90 tabs 08/26/23 01/07/25 Rx 200 mg-tenofovir alafenam 25 mg tablet (Biktarvy) buprenorphine 8 mg-naloxone 2 mg 0.5 - 1 film sublingual 08/02/24 01/07/25 History sublingual film DIRECTED PRN NEEDED gabapentin 800 mg tablet 800 mg PO TID 10/22/24 01/07/25 History buprenorphine 300 mg/1.5 mL 300 mg subcut MONTHLY 01/04/25 01/07/25 History solution,exten.rel.subcutaneous syringe (Sublocade) aripiprazole 5 mg tablet (Abilify) 5 mg PO HS 7 days #7 tabs 01/06/25 01/07/25 Rx Past Med/Surg History Problem List (Updated 01/09/25 @ 04:21 by Collins Villa MD) Back pain Blood culture positive (Acute) Tobacco dependence Polysubstance abuse Right hip joint effusion Hypoglycemia Bacteremia Labile mood Encephalopathy Ground-level fall Myoclonus (Acute) Fall (Acute) Wheezing Pneumonitis Medical History (Updated 01/09/25 @ 04:21 by Collins Villa MD) 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) Right hip pain HIV (human immunodeficiency virus infection) HCV (hepatitis C virus) ADHD Anxiety with agitation Drug abuse and dependence Acute respiratory failure with hypoxia Hypoxia History of heroin abuse Methamphetamine abuse Cocaine abuse Surgical History (Updated 01/07/25 @ 21:16 by Collins Villa MD) History of orthopedic surgery R ABDI and replacement of hardware; ~2018 - [facility] Social History Smoking Status: Current every day smoker Tobacco Type: E-cigarettes / Vaping Cigarettes Per Day: x1 pack; Second Hand Exposure: Yes; Do You Dip or Chew Tobacco: No; Hx Alcohol Use: Yes Alcohol type: beer Hx Substance Use: Yes Last Used Substance: Just Prior to Arrival Last Used Substance Other:: methadone Preferred Language: [place] Communication Ability: Effective Angiography Technologist Required: No Beliefs That Will Affect Care: None Current Living Situation: Alone Feels Safe at Home: Yes Gender Identity: Male Assistive Devices: None Review of Systems All systems reviewed & are unremarkable except as noted in HPI & below. Physical Exam . * General: Alert and oriented, no acute distress * Constitutional: well-developed, well-nourished. * Respiratory: Normal respiratory effort, no distress * Gastrointestinal: No tenderness to palpation, no rigidity or guarding. * Skin: No rash or lesion. * Neurologic: Grossly normal * Musculoskeletal: Right hip region with well healed surgical incision. No outward sign of infection or wound dehiscence. Otherwise no obvious deformity or overlying skin changes. Diffuse TTP proximal thigh and hip region. Otherwise no specific tenderness of distal thigh, lower leg, foot/ankle. Pain with log roll, otherwise AROM hip limited by pain. AROM foot/ankle intact. Sensation intact plantar/dorsal foot. Brisk capillary refill. Results & Data Results & Data Laboratory Results . 01/09/25 06:02 Aerobic Blood Culture - Pending Blood Anaerobic Blood Culture - Pending 01/09/25 05:53 Aerobic Blood Culture - Pending Blood Anaerobic Blood Culture - Pending 01/07/25 16:50 Aerobic Blood Culture - Preliminary Blood No growth in Aerobic bottle after 24 hours. Anaerobic Blood Culture - Preliminary No growth in Anaerobic bottle after 24 hours. 01/07/25 16:38 Aerobic Blood Culture - Preliminary Blood No growth in Aerobic bottle after 24 hours. Anaerobic Blood Culture - Preliminary No growth in Anaerobic bottle after 24 hours. 01/09/25 05:53 Creatinine 0.96 Est Cr Clr Drug Dosing 103.3 eGFR 107.70 Random Vancomycin 11.3 Diagnostic Findings . Lumbar Spine MRI 01/08/25 17:22 EXAM: MR lumbar spine wo/w con CLINICAL HISTORY: low back pain, bacteremia, r/o discitis TECHNIQUE: Multisequential and multiplanar images of the lumbar spine were acquired for review without and with contrast. COMPARISON: none FINDINGS: There is loss of lumbar lordosis, likely due to muscle spasm. Degenerative changes are present in the visualized spine in the form of marginal osteophytes, Schmorl's nodes, and type II Modic changes at the endplates. There are disc dehydrative changes in the intervertebral discs. The conus medullaris terminates at approximately L1. Alignment of the lumbar spine is normal. Bone marrow signal is normal. There is no evidence of compression fracture. Limited evaluation of the sacrum is normal. The visualized paravertebral soft tissues are unremarkable. T11-T12: Evaluated on sagittal images only. There is no disc bulge, canal stenosis, or neuroforaminal narrowing. Subarticular recesses are patent. T12-L1: Evaluated on sagittal images only. There is no disc bulge, canal stenosis, or neuroforaminal narrowing. Subarticular recesses are patent. L1-L2: There is no disc bulge, canal stenosis, or neuroforaminal narrowing. Subarticular recesses are patent. L2-L3: There is no disc bulge, canal stenosis, or neuroforaminal narrowing. Subarticular recesses are patent. L3-L4: There is no disc bulge, canal stenosis, or neuroforaminal narrowing. Subarticular recesses are patent. L4-L5: There is no disc bulge, canal stenosis, or neuroforaminal narrowing. Subarticular recesses are patent. L5-S1: There is a diffuse disc bulge indenting the ventral thecal sac, without canal stenosis. Mild bilateral neuroforaminal narrowing is present. No enhancing lesion seen. No abnormal enhancement in any disc or end plates/vertebra. IMPRESSION: 1. Lumbar spondylosis. 2. Diffuse disc bulge at the L5-S1 intervertebral disc. 3. No other disc bulges or evidence of discitis. Electronically signed by Marcus Toney 01-09-2025 01:34 AM Thoracic Spine MRI 01/08/25 17:22 EXAM: MR thoracic spine wo/w con CLINICAL HISTORY: bacteremia, mid-thoracic back pain; eval discitis TECHNIQUE: Multisequential and multiplanar images of the thoracic spine were reviewed without and with contrast. COMPARISON: none FINDINGS: Degenerative changes are present in the form of Schmorl's nodes at the endplates of the lower thoracic vertebrae. Possible type 1 Modic changes are noted at the inferior endplate of the T12 vertebra. The cord is normal in caliber and signal. No abnormal bone marrow signal is demonstrated throughout the thoracic spine to suggest a fracture. C7-T1: No disc bulge. No canal stenosis. No neuroforaminal narrowing. T1-T2: No disc bulge. No canal stenosis. No neuroforaminal narrowing. T2-T3: No disc bulge. No canal stenosis. No neuroforaminal narrowing. T3-T4: No disc bulge. No canal stenosis. No neuroforaminal narrowing. T4-T5: No disc bulge. No canal stenosis. No neuroforaminal narrowing. T5-T6: No disc bulge. No canal stenosis. No neuroforaminal narrowing. T6-T7: No disc bulge. No canal stenosis. No neuroforaminal narrowing. T7-T8: No disc bulge. No canal stenosis. No neuroforaminal narrowing. T8-T9: No disc bulge. No canal stenosis. No neuroforaminal narrowing. T9-T10: No disc bulge. No canal stenosis. No neuroforaminal narrowing. T10-T11: No disc bulge. No canal stenosis. No neuroforaminal narrowing. T11-T12: No disc bulge. No canal stenosis. No neuroforaminal narrowing. The paravertebral soft tissues are unremarkable. IMPRESSION: Mild thoracic spondylosis. Possible type 1 Modic changes at the inferior endplate of the T12 vertebra. No areas of abnormal contrast enhancement to suggest discitis. Electronically signed by Marcus Toney 01-09-2025 01:36 AM PG Care Time/CCT Total # of Minutes Spent Total Time Spent with Patient: Total time spent is greater than 50% in coordination of care (as documented) at patient's floor/unit and/or counseling patient: [place] [address] IN/OBS CONSULT LVL 5,80M Patient Type New Medical Decision Making High Complexity Diagnoses Right hip joint effusion M25.451
--- NOTE | 2025-01-09 10:50 | Infectious Disease Consult ---
Date of Consultation January 09, 2025 Assessment & Plan (1) Polysubstance abuse: (2) Right hip joint effusion: (3) Bacteremia: Plan This is a 34-year-old man with a past medical history of HIV on Biktarvy, hep C status posttreatment, R hip septic arthritis sp Surgery times 2 ([facility]), anxiety, ADHD, polysubstance abuse (heroin, methamphetamine, cocaine in the past) on Suboxone, vaping associated lung injury who was recently admitted 01/04 - 01/06 status post a fall, tremors. At that time reported nausea and vomiting,lower extremity fasciculations and felt that his legs gave out on him. He was also noted to be agitated and delusional with hallucinations. There was concern he may be withdrawing from benzodiazepines. He was offered Ativan during the hospitalization but requested Xanax instead. He had a psychiatric evaluation and it thought that he may be withdrawing from Wellbutrin and gabapentin, which had been crushing and snorting CT head neck, MRI head, EEG were negative. Patient did not meet grounds for 302/involuntary commitment as he had no active suicidal or homicidal ideations. He was discharged. He was asked to return to the ED on 01/07 for positive blood cultures. Blood cultures grew micrococcus luteus. On admission he complained of acute on chronic right hip pain. He denied fever, chills, nausea, vomiting. In the ED he was afebrile and hemodynamically stable. Labs: WBC 5.3, BUN 9, creatinine 0.97, CD4 440 (01/04/2025). Chest x-ray normal. Right hip CT shows postoperative disarticulation of the right hip which is stable. Large amount of inflammatory change and fluid within the right hip joint space. MRI lumbar t horacic spine shows disc bulge at L5-S1 intervertebral's disc. No other evidence of discitis. He was evaluated by orthopedic surgery who recommended IR aspiration with synovial fluid analysis and culture. If fluid results c/f infection , they plan to proceed with washout in OR. He is currently receiving IV vancomycin. Infectious disease consulted for bacteremia Microbiology 01/07 blood cultures NGTD 01/07 urine culture < 1K Prior microbiology 01/04 2/ bottles Micrococcus luteus Antibiotics Vancomycin urrent # Micrococcus luteus bacteremia # Right hip joint effusion and acute on chronic pain # History of R septic joint, ? subsequent PJI with explantation and girdlestone procedure # HIV, on Biktarvy # Hepatitis C infection, status posttreatment # History of polysubstance abuse Discussion: He is immunocompromised with HIV; CD4 count greater than 400 on Biktarvy. Found to have a micrococcus bacteremia of unknown etiology. This is a skin organism and is usually considered a contaminant however in the setting of his immunocompromise state and right hip effusion this may represent a true pathogen. Source of bacteremia may be secondary to right hip joint infection. Insettingof ploysubstance abuse, although he denies recent illicit dug use, endocarditis should be ruled out as well. He has a history of a right hip septic arthritis and reports that he underwent a hip replacement that subsequently got infected (not verified). Prosthetic was eventually explanted and he appears to have underwent a Girdlestone procedur at [facility]. He is not able to tell me when the procedures were done. In the last month he has developed acute on chronic right hip joint pain. Recommendations Continue IV vancomycin per pharmacy protocol follow-up repeat blood cultures Check transthoracic echocardiogram (patient agrees) Follow-up synovial fluid analysis and culture If he undergoes joint washout, send for aerobic, anaerobic, fungal cultures Follow-up HIV viral load and hepatitis C viral load Thank you for this consult. ID will continue to follow. Kimberly Alvarez MD, MPH Infectious Disease [facility], [facility] Call [phone] with questions Consultation Information Consultation was provided via telemedicine using two-way real-time interactive telecommunication between the patient and the telemedicine provider. For the duration of the visit, the provider was performing the assessment from a different facility than the patient. This includesuse of bluetooth stethoscope forauscultationperformed by the telepresenter that the telemedicine provider can hear if described in the physical exam. [employer] contact information: Please call [facility] Call Center [phone]. (Phone Number For Physician Use Only) After establishing a telemedicine visit, patient was: Patient was verified with two unique identifiers and Gave permission to continue telehealth session Time Spent with Patient: Initial => 75 min History of Present Illness Reason for Consultation: Micrococcus Luteus Bacteremia Requesting Physician: Maurilio Jeffers DO Attending Physician: José Antonio Ray MD History of Present Illness This is a 34-year-old man with a past medical history of HIV on Biktarvy, hep C status posttreatment, R hip septic arthritis sp Surgery times 2 ([facility]), anxiety, ADHD, polysubstance abuse (heroin, methamphetamine, cocaine in the past) on Suboxone, vaping associated lung injury who was recently admitted 01/04 - 01/06 status post a fall, tremors. At that time reported nausea and vomiting,lower extremity fasciculations and felt that his legs gave out on him. He was also noted to be agitated and delusional with hallucinations. There was concern he may be withdrawing from benzodiazepines. He was offered Ativan during the hospitalization but requested Xanax instead. He had a psychiatric evaluation and it thought that he may be withdrawing from Wellbutrin and gabapentin, which had been crushing and snorting CT head neck, MRI head, EEG were negative. Patient did not meet grounds for 302/involuntary commitment as he had no active suicidal or homicidal ideations. He was discharged. He was asked to return to the ED on 01/07 for positive blood cultures. Blood cultures grew micrococcus luteus. On admission he complained of acute on chronic right hip pain. He denied fever, chills, nausea, vomiting. In the ED he was afebrile and hemodynamically stable. Labs: WBC 5.3, BUN 9, creatinine 0.97, CD4 440 (01/04/2025). Chest x-ray normal. Right hip CT shows postoperative disarticulation of the right hip which is stable. Large amount of inflammatory change and fluid within the right hip joint space. MRI lumbar thoracic spine shows disc bulge at L5-S1 intervertebral's disc. No other evidence of discitis. He was evaluated by orthopedic surgery who recommended IR aspiration with synovial fluid analysis and culture. If fluid results c/f infection , they plan to proceed with washout in OR. He is currently receiving IV vancomycin. Infectious disease consulted for bacteremia Allergies Allergy/AdvReac Type Severity Reaction Status Date / Time gabapentin AdvReac Mild gabapentin Verified 01/04/25 23:26 abuse Home Medications Medication Instructions Recorded Confirmed Type bictegravir 50 mg-emtricitabine 1 tab PO DAILY #90 tabs 08/26/23 01/07/25 Rx 200 mg-tenofovir alafenam 25 mg tablet (Biktarvy) buprenorphine 8 mg-naloxone 2 mg 0.5 - 1 film sublingual 08/02/24 01/07/25 History sublingual film DIRECTED PRN NEEDED gabapentin 800 mg tablet 800 mg PO TID 10/22/24 01/07/25 History buprenorphine 300 mg/1.5 mL 300 mg subcut MONTHLY 01/04/25 01/07/25 History solution,exten.rel.subcutaneous syringe (Sublocade) aripiprazole 5 mg tablet (Abilify) 5 mg PO HS 7 days #7 tabs 01/06/25 01/07/25 Rx Patient History Medical History (Updated 01/09/25 @ 04:21 by Collins Villa MD) 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) Right hip pain HIV (human immunodeficiency virus infection) HCV (hepatitis C virus) ADHD Anxiety with agitation Drug abuse and dependence Acute respiratory failure with hypoxia Hypoxia History of heroin abuse Methamphetamine abuse Cocaine abuse Surgical History (Updated 01/07/25 @ 21:16 by Collins Villa MD) History of orthopedic surgery R ABDI and replacement of hardware; ~2018 - [facility] Social History Smoking Status: Current every day smoker Tobacco Type: E-cigarettes / Vaping Cigarettes Per Day: x1 pack; Second Hand Exposure: Yes; Do You Dip or Chew Tobacco: No; Hx Alcohol Use: Yes Alcohol type: beer Hx Substance Use: Yes Last Used Substance: Just Prior to Arrival Last Used Substance Other:: methadone Preferred Language: Pashto Communication Ability: Effective Tower Air Traffic Control Specialist Required: No Beliefs That Will Affect Care: None Current Living Situation: Alone Feels Safe at Home: Yes Gender Identity: Male Assistive Devices: None Review of System A 10 point ROS obtained. Pertinent positives as per HPi Physical Exam Physical Exam: NAD Supple neck Non labored breathing, On RA Soft abdomen, not tender Right hip healed surgical incision. Tender, + edema. Not warm or erythematous NO LE edema AAO times 3 Labile mood, occasionally agitated Results & Data Vital Signs (Past 12 Hours) Vital Signs Temp Pulse Resp BP Pulse Ox O2 Del Method 01/09/25 07:17 36.6 C 57 L 18 109/66 98 Room Air Laboratory Results Laboratory Results - last 48 hr 01/07/25 01/07/25 01/07/25 16:38 16:50 22:12 WBC 5.83 RBC 4.57 L Hgb 13.5 L Hct 40.1 L MCV 87.7 MCH 29.5 MCHC 33.7 RDW Std Deviation 39.0 RDW Coeff of Estelle 12.2 Plt Count 238 MPV 10.1 Immature Gran % (Auto) 0.2 Neut % (Auto) 29.8 Lymph % (Auto) 31.2 [place] % (Auto) 6.5 Eos % (Auto) 30.9 Baso % (Auto) 1.4 Neut # (Auto) 1.74 Lymph # (Auto) 1.82 [place] # (Auto) 0.38 Eos # (Auto) 1.80 H Baso # (Auto) 0.08 Immature Gran # (Auto) 0.01 ESR 12 Sodium 139 Potassium 4.3 Chloride 105 Carbon Dioxide 30 Anion Gap 4 BUN 9 Creatinine 0.97 Est Cr Clr Drug Dosing Not Reportable eGFR 106.37 BUN/Creatinine Ratio 9.3 L Glucose 54 L POC Glucose Lactate 1.7 Calcium 9.4 Magnesium 1.7 Total Bilirubin 0.3 Direct Bilirubin 0.0 AST 18 ALT 11 Alkaline Phosphatase 96 Troponin I High Sens 2.8 C-Reactive Protein < 0.50 Total Protein 7.3 Albumin 4.3 Procalcitonin < 0.02 Urine Color Yellow Urine Appearance Clear Urine pH 7.0 Ur Specific [place] 1.012 Urine Protein Negative Urine Glucose (UA) Negative Urine Ketones Negative Urine Blood Negative Urine Nitrite Negative Urine Bilirubin Negative Urine Urobilinogen Negative Ur Leukocyte Esterase 2+ H Urine WBC (Auto) 21-50 H Urine RBC (Auto) 0-2 U Hyaline Cast (Auto) 0-2 U Epithel Cells (Auto) 0-2 Urine Bacteria (Auto) None Seen Urine Comment Random Vancomycin 01/08/25 01/08/25 01/09/25 01:02 04:34 05:53 WBC 4.81 RBC 4.13 L Hgb 12.1 L Hct 36.8 L MCV 89.1 MCH 29.3 MCHC 32.9 RDW Std Deviation 39.7 RDW Coeff of Estelle 12.2 Plt Count 196 MPV 10.0 Immature Gran % (Auto) 0.2 Neut % (Auto) 28.1 Lymph % (Auto) 32.8 [place] % (Auto) 7.5 Eos % (Auto) 30.4 Baso % (Auto) 1.0 Neut # (Auto) 1.35 L Lymph # (Auto) 1.58 [place] # (Auto) 0.36 Eos # (Auto) 1.46 H Baso # (Auto) 0.05 Immature Gran # (Auto) 0.01 ESR Sodium 143 Potassium 4.2 Chloride 112 H Carbon Dioxide 27 Anion Gap 4 BUN 9 Creatinine 0.90 0.96 Est Cr Clr Drug Dosing 110.2 103.3 eGFR 116.37 107.70 BUN/Creatinine Ratio 10.0 Glucose 81 POC Glucose 99 Lactate Calcium 8.6 Magnesium Total Bilirubin Direct Bilirubin AST ALT Alkaline Phosphatase Troponin I High Sens C-Reactive Protein < 0.50 Total Protein Albumin Procalcitonin Urine Color Urine Appearance Urine pH Ur Specific [place] Urine Protein Urine Glucose (UA) Urine Ketones Urine Blood Urine Nitrite Urine Bilirubin Urine Urobilinogen Ur Leukocyte Esterase Urine WBC (Auto) Urine RBC (Auto) U Hyaline Cast (Auto) U Epithel Cells (Auto) Urine Bacteria (Auto) Urine Comment Random Vancomycin 11.3 01/09/25 06:11 WBC RBC Hgb Hct MCV MCH MCHC RDW Std Deviation RDW Coeff of Estelle Plt Count MPV Immature Gran % (Auto) Neut % (Auto) Lymph % (Auto) [place] % (Auto) Eos % (Auto) Baso % (Auto) Neut # (Auto) Lymph # (Auto) [place] # (Auto) Eos # (Auto) Baso # (Auto) Immature Gran # (Auto) ESR 7 Sodium Potassium Chloride Carbon Dioxide Anion Gap BUN Creatinine Est Cr Clr Drug Dosing eGFR BUN/Creatinine Ratio Glucose POC Glucose Lactate Calcium Magnesium Total Bilirubin Direct Bilirubin AST ALT Alkaline Phosphatase Troponin I High Sens C-Reactive Protein Total Protein Albumin Procalcitonin Urine Color Urine Appearance Urine pH Ur Specific [place] Urine Protein Urine Glucose (UA) Urine Ketones Urine Blood Urine Nitrite Urine Bilirubin Urine Urobilinogen Ur Leukocyte Esterase Urine WBC (Auto) Urine RBC (Auto) U Hyaline Cast (Auto) U Epithel Cells (Auto) Urine Bacteria (Auto) Urine Comment Random Vancomycin Microbiology 01/07/25 22:12 Urine,Clean Catch Urine Culture - Preliminary No growth - Less than 1,000 colonies/mL, Final report to follow. 01/07/25 16:50 Blood Aerobic Blood Culture - Preliminary No growth in Aerobic bottle after 24 hours. 01/07/25 16:50 Blood Anaerobic Blood Culture - Preliminary No growth in Anaerobic bottle after 24 hours. 01/07/25 16:38 Blood Aerobic Blood Culture - Preliminary No growth in Aerobic bottle after 24 hours. 01/07/25 16:38 Blood Anaerobic Blood Culture - Preliminary No growth in Anaerobic bottle after 24 hours. Diagnostic Findings Chest X-Ray 01/07/25 16:27 Chest radiograph, one view History: Sepsis Comparison: None Findings: Single AP view of the chest performed. No focal consolidation or pleural effusion. No pneumothorax. The cardiomediastinal silhouette is within normal limits. Normal pulmonary vascularity. No evidence for lymphadenopathy. No visualized bony or soft tissue abnormality. Impression: Normal chest radiograph Electronically signed by Jonnie Milan 01-07-2025 4:[address] 01/07/25 19:06 CT of the right hip without contrast Technique: Noncontrast axial images of the right hip.Coronal/sagittal reformatted images made available for review Reference made to findings plain film dated 03/06/2023 Findings: Significant amount of soft tissue swelling involving the right hip joint capsule with resorption of the femoral head and extensive productive change about both the proximal aspect of the femur as well as the acetabulum. There is a tubular central lucency present which suggests the appearance of the right hip is secondary to explantation of a right hip arthroplasty with subsequent articulation of the right hip joint. The presence or absence of an abscess cannot be assessed on this unenhanced CT scan. There is likely a significant amount of fluid and inflammatory change within the right hip joint space. Impression Exam limited secondary to lack of IV contrast Presumed postoperative disarticulation of the right hip stable when compared with the prior exam Large amount of inflammatory change and fluid within the right hip joint space which is suboptimally evaluated on this exam. Electronically signed by Maurilio Pryor 01-07-2025 8:07 PM Lumbar Spine MRI 01/08/25 17:22 EXAM: MR lumbar spine wo/w con CLINICAL HISTORY: low back pain, bacteremia, r/o discitis TECHNIQUE: Multisequential and multiplanar images of the lumbar spine were acquired for review without and with contrast. COMPARISON: none FINDINGS: There is loss of lumbar lordosis, likely due to muscle spasm. Degenerative changes are present in the visualized spine in the form of marginal osteophytes, Schmorl's nodes, and type II Modic changes at the endplates. There are disc dehydrative changes in the intervertebral discs. The conus medullaris terminates at approximately L1. Alignment of the lumbar spine is normal. Bone marrow signal is normal. There is no evidence of compression fracture. Limited evaluation of the sacrum is normal. The visualized paravertebral soft tissues are unremarkable. T11-T12: Evaluated on sagittal images only. There is no disc bulge, canal stenosis, or neuroforaminal narrowing. Subarticular recesses are patent. T12-L1: Evaluated on sagittal images only. There is no disc bulge, canal stenosis, or neuroforaminal narrowing. Subarticular recesses are patent. L1-L2: There is no disc bulge, canal stenosis, or neuroforaminal narrowing. Subarticular recesses are patent. L2-L3: There is no disc bulge, canal stenosis, or neuroforaminal narrowing. Subarticular recesses are patent. L3-L4: There is no disc bulge, canal stenosis, or neuroforaminal narrowing. Subarticular recesses are patent. L4-L5: There is no disc bulge, canal stenosis, or neuroforaminal narrowing. Subarticular recesses are patent. L5-S1: There is a diffuse disc bulge indenting the ventral thecal sac, without canal stenosis. Mild bilateral neuroforaminal narrowing is present. No enhancing lesion seen. No abnormal enhancement in any disc or end plates/vertebra. IMPRESSION: 1. Lumbar spondylosis. 2. Diffuse disc bulge at the L5-S1 intervertebral disc. 3. No other disc bulges or evidence of discitis. Electronically signed by Marcus Toney 01-09-2025 01:34 AM Thoracic Spine MRI 01/08/25 17:22 EXAM: MR thoracic spine wo/w con CLINICAL HISTORY: bacteremia, mid-thoracic back pain; eval discitis TECHNIQUE: Multisequential and multiplanar images of the thoracic spine were reviewed without and with contrast. COMPARISON: none FINDINGS: Degenerative changes are present in the form of Schmorl's nodes at the endplates of the lower thoracic vertebrae. Possible type 1 Modic changes are noted at the inferior endplate of the T12 vertebra. The cord is normal in caliber and signal. No abnormal bone marrow signal is demonstrated throughout the thoracic spine to suggest a fracture. C7-T1: No disc bulge. No canal stenosis. No neuroforaminal narrowing. T1-T2: No disc bulge. No canal stenosis. No neuroforaminal narrowing. T2-T3: No disc bulge. No canal stenosis. No neuroforaminal narrowing. T3-T4: No disc bulge. No canal stenosis. No neuroforaminal narrowing. T4-T5: No disc bulge. No canal stenosis. No neuroforaminal narrowing. T5-T6: No disc bulge. No canal stenosis. No neuroforaminal narrowing. T6-T7: No disc bulge. No canal stenosis. No neuroforaminal narrowing. T7-T8: No disc bulge. No canal stenosis. No neuroforaminal narrowing. T8-T9: No disc bulge. No canal stenosis. No neuroforaminal narrowing. T9-T10: No disc bulge. No canal stenosis. No neuroforaminal narrowing. T10-T11: No disc bulge. No canal stenosis. No neuroforaminal narrowing. T11-T12: No disc bulge. No canal stenosis. No neuroforaminal narrowing. The paravertebral soft tissues are unremarkable. IMPRESSION: Mild thoracic spondylosis. Possible type 1 Modic changes at the inferior endplate of the T12 vertebra. No areas of abnormal contrast enhancement to suggest discitis. Electronically signed by Marcus Toney 01-09-2025 01:36 AM Medications Administered Home Medications Medication Instructions Recorded Confirmed Last Taken bictegravir 50 mg-emtricitabine 1 tab PO DAILY #90 tabs 08/26/23 01/07/25 Unknown 200 mg-tenofovir alafenam 25 mg tablet (Biktarvy) buprenorphine 8 mg-naloxone 2 mg 0.5 - 1 film sublingual 08/02/24 01/07/25 01/04/25 21:00 sublingual film DIRECTED PRN NEEDED gabapentin 800 mg tablet 800 mg PO TID 10/22/24 01/07/25 Unknown buprenorphine 300 mg/1.5 mL 300 mg subcut MONTHLY 01/04/25 01/07/25 Unknown solution,exten.rel.subcutaneous syringe (Sublocade) aripiprazole 5 mg tablet (Abilify) 5 mg PO HS 7 days #7 tabs 01/06/25 01/07/25 Unknown Active Medications Generic Name Dose Route Start Last Admin Trade Name Freq PRN Reason Stop Dose Admin Alprazolam 1 mg 01/09/25 09:53 01/09/25 14:16 Alprazolam 0.5 Mg Tablet PO 02/07/25 17:19 1 mg Q4H PRN Administration Anxiety/Agitation Aripiprazole 5 mg 01/07/25 21:00 01/08/25 21:53 Aripiprazole 5 Mg Tab PO 02/06/25 20:59 5 mg HS MICHELLE Administration Buprenorphine/Naloxone 1 tab 01/08/25 09:00 01/09/25 07:52 Buprenorphine/Naloxone 8/2 Mg Tab SL 02/07/25 08:59 1 tab DAILY MICHELLE Administration Buspirone HCl 10 mg 01/07/25 21:00 01/09/25 14:16 Buspirone 5 Mg Tab PO 02/06/25 20:59 Not Given TID MICHELLE Gabapentin 800 mg 01/07/25 21:00 01/09/25 14:16 Gabapentin 800 Mg Tab PO 02/06/25 20:59 800 mg TID MICHELLE Administration Vancomycin HCl 1,250 mg/ 275 mls @ 200 mls/hr 01/08/25 06:00 01/09/25 07:57 Sodium Chloride IV 01/22/25 05:59 Infused Q12H MICHELLE Infusion Miscellaneous 1 each 01/08/25 00:00 01/09/25 07:57 Biktarvy - Order Awaiting Action N/A 02/07/25 00:00 Not Given QS MICHELLE Miscellaneous 1 each 01/08/25 08:59 01/09/25 07:56 Remove Nicoderm Patch N/A 02/07/25 08:58 Not Given DAILY@[id number] MICHELLE Nicotine 1 patch 01/08/25 09:00 01/09/25 07:56 Nicotine 21 Mg/24 Hr Tdsy TD 02/07/25 08:59 Not Given QAM MICHELLE Oxycodone HCl 5 mg 01/09/25 11:45 01/09/25 15:16 Oxycodone Hcl Ir 5 Mg Tab (Immediate Release) PO 01/23/25 11:44 5 mg Q4H PRN Administration Pain
--- NOTE | 2025-01-09 11:58 | Hospitalist Progress Note ---
Date of Service January 09, 2025 Assessment & Plan (1) Bacteremia: Plan: Blood cultures obtained January 04 were positive for micrococcus. He is now on intravenous vancomycin day 3. Blood cultures obtained January 07 are negative and they were repeated again today, January 09. Infectious disease consultation requested and final report is pending (2) Right hip joint effusion: Plan: Aspiration is pending. IR has requested anesthesia consultation for pain control measures so the procedure can proceed. He has prior infection of the right hip and previous surgical intervention at an outside hospital. (3) HIV (human immunodeficiency virus infection): Plan: By history. CD4 level is pending (4) Hypoglycemia: Plan: Present on admission. Now corrected (5) HCV (hepatitis C virus): Plan: By history. No active intervention at this time (6) Anxiety with agitation: Plan: Xanax as needed dosage uptitrated to every 4 hours. (7) Drug abuse and dependence: Plan: By history. Supportive care (8) Polysubstance abuse: Plan: By history. Supportive care (9) Tobacco dependence: Plan: Topical nicotine patch as needed Plan Await right hip aspiration results. Continue intravenous vancomycin for now. Await infectious disease recommendations. Admission and Anticipated Discharge Date Admission Date: January 07, 2025 Subjective Alert and oriented. Very difficult to assess. Complains of right hip pain [place] physical findings. In fact, attempted aspiration of the right hip by interventional radiology was postponed due to pain and they have requested an order for anesthesiology consultation. Will start as needed oxycodone for pain relief. Infectious disease consultation pending. Xanax as needed dosing increased to every 4 hours as needed for control of his chronic anxiety. He is currently on intravenous vancomycin, day 3. Blood cultures obtained on January 07 are negative or repeated today, January 09. Review of Systems 2 Review of Systems: Constitutionalno fever or chills ENTno blurred vision, no double vision, no epistaxis, no sore throat Respiratoryno cough, no wheezing, no shortness of breath Cardiacno palpitations, no chest pain, no syncope Jacinto nausea, vomiting, diarrhea, melena, hematochezia GUno urinary retention, no urinary incontinence, no dysuria, no hematuria Musculoskeletalcomplaining of severe right hip pain. No muscle tenderness Skinno bruising, no rashes, no pruritus Neurono isolated weakness, no paresthesia, no weakness Psychanxiety is problematic. Currently treated with Xanax Physical Exam 2 Physical Exam: General-alert and oriented x3, no fever, no chills HEENT-head atraumatic and normocephalic, pupils equal and reactive to light, extraocular muscles intact Neck-no lymphadenopathy or thyromegaly, trachea midline Chest-clear to auscultation. No rales, wheezing or rhonchi Cardiac-regular rate and rhythm, normal S1 and S2 Abdomen-normal bowel sounds, no hepatosplenomegaly Extremities-no cyanosis, clubbing, or edema. No overt signs of right hip infection Neuro-cranial nerves II through XII intact, motor and sensory function within normal limits, strength symmetrical, no focal deficits Psych-anxious. Results & Data Results & Data Vital Signs (Past 12 Hours) Vital Signs Temp Pulse Resp BP Pulse Ox O2 Del Method 01/09/25 07:17 36.6 C 57 L 18 109/66 98 Room Air Laboratory Results 01/08/25 04:34 01/09/25 05:53 PG Care Time/CCT Total # of Minutes Spent Total Time Spent with Patient: Total time spent is greater than 50% in coordination of care (as documented) at patient's floor/unit and/or counseling patient: Coding Level of Care Code 18776 SUB INP/OBS CARE 3/50MIN Diagnoses Bacteremia R78.81 Right hip joint effusion M25.451 HIV (human immunodeficiency virus infection) B20 Hypoglycemia E16.2 HCV (hepatitis C virus) B19.20 Anxiety with agitation F41.9; R45.1 Drug abuse and dependence F19.20 Polysubstance abuse F19.10 Tobacco dependence F17.200
[2025-01-09] MEDS: MELATONIN 3 MG TAB PO PRN (20:57)
[2025-01-10 08:02] LABS: Creatinine Clr Calc Pharmacy 95.3 ml/min
--- NOTE | 2025-01-10 10:04 | Anesthesiology Consultation ---
Date of Service January 10, 2025 Assessment & Plan Chart Review Chart Review: Acceptable Risk for Surgery, Patient NOT seen in Pre Admission Testing and entry level project engineer initiated Consults Requested none History Surgery Operation Date: 01/10/25 11:00 Proposed Procedures p Hip Aspiration with Ultrasound, Anesthesia Sedation - LAST Barry Height/Weight Height: 5 ft 7 in Weight: 70.8 kg Allergies Allergy/AdvReac Type Severity Reaction Status Date / Time gabapentin AdvReac Mild gabapentin Verified 01/04/25 23:26 abuse Medications Home Medications Medication Instructions Recorded Confirmed Last Taken bictegravir 50 mg-emtricitabine 1 tab PO DAILY #90 tabs 08/26/23 01/07/25 Unknown 200 mg-tenofovir alafenam 25 mg tablet (Biktarvy) buprenorphine 8 mg-naloxone 2 mg 0.5 - 1 film sublingual 08/02/24 01/07/25 01/04/25 21:00 sublingual film DIRECTED PRN NEEDED gabapentin 800 mg tablet 800 mg PO TID 10/22/24 01/07/25 Unknown buprenorphine 300 mg/1.5 mL 300 mg subcut MONTHLY 01/04/25 01/07/25 Unknown solution,exten.rel.subcutaneous syringe (Sublocade) aripiprazole 5 mg tablet (Abilify) 5 mg PO HS 7 days #7 tabs 01/06/25 01/07/25 Unknown Active Medications Generic Name Dose Route Start Last Admin Trade Name Freq PRN Reason Stop Dose Admin Alprazolam 1 mg 01/09/25 09:53 01/10/25 09:04 Alprazolam 0.5 Mg Tablet PO 02/07/25 17:19 1 mg Q4H PRN Administration Anxiety/Agitation Aripiprazole 5 mg 01/07/25 21:00 01/09/25 20:40 Aripiprazole 5 Mg Tab PO 02/06/25 20:59 5 mg HS MICHELLE Administration Buprenorphine/Naloxone 1 tab 01/08/25 09:00 01/10/25 09:04 Buprenorphine/Naloxone 8/2 Mg Tab SL 02/07/25 08:59 1 tab DAILY MICHELLE Administration Bupropion HCl 300 mg 01/09/25 17:00 01/10/25 09:04 Bupropion Sr 150 Mg Tabcr PO 02/08/25 16:59 300 mg BID MICHELLE Administration Buspirone HCl 10 mg 01/07/25 21:00 01/09/25 20:40 Buspirone 5 Mg Tab PO 02/06/25 20:59 10 mg TID MICHELLE Administration Gabapentin 800 mg 01/07/25 21:00 01/09/25 20:40 Gabapentin 800 Mg Tab PO 02/06/25 20:59 800 mg TID MICHELLE Administration Vancomycin HCl 1,250 mg/ 275 mls @ 200 mls/hr 01/08/25 06:00 01/10/25 07:10 Sodium Chloride IV 01/22/25 05:59 Infused Q12H MICHELLE Infusion Melatonin 3 mg 01/07/25 20:43 01/09/25 20:57 Melatonin 3 Mg Tab PO 02/06/25 20:42 3 mg HS PRN Administration Insomnia Miscellaneous 1 each 01/08/25 00:00 01/10/25 09:15 Biktarvy - Order Awaiting Action N/A 02/07/25 00:00 Not Given QS MICHELLE Miscellaneous 1 each 01/08/25 08:59 01/10/25 09:07 Remove Nicoderm Patch N/A 02/07/25 08:58 1 each DAILY@0859 MICHELLE Administration Nicotine 1 patch 01/08/25 09:00 01/09/25 07:56 Nicotine 21 Mg/24 Hr Tdsy TD 02/07/25 08:59 Not Given QAM MICHELLE Oxycodone HCl 5 mg 01/09/25 11:45 01/10/25 04:51 Oxycodone Hcl Ir 5 Mg Tab (Immediate Release) PO 01/23/25 11:44 5 mg Q4H PRN Administration Pain Past Medical History Medical History 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) Right hip pain HIV (human immunodeficiency virus infection) HCV (hepatitis C virus) ADHD Anxiety with agitation Drug abuse and dependence Acute respiratory failure with hypoxia Hypoxia History of heroin abuse Methamphetamine abuse Cocaine abuse Past Surgical History Surgical History History of orthopedic surgery R ABDI and replacement of hardware; ~2018 - [facility] Social History Smoking Status: Current every day smoker tobacco type: cigarettes Smoking cigarettes per day: x1 pack Do You Dip or Chew Tobacco: No Hx Alcohol Use: Yes Alcohol type: beer alcohol intake frequency: a few times a week Hx Substance Use: Yes substance use type: opiates and prescription drug Last Used Substance: Just Prior to Arrival Last Used Substance Other:: methadone Physical Exam Vital Signs Last Vital Signs Temp 36.6 C 01/10/25 09:58 Pulse 62 01/10/25 09:58 Resp 18 01/10/25 09:58 BP 108/67 01/10/25 09:58 Pulse Ox 97 01/10/25 09:58 O2 Del Method Room Air 01/10/25 09:58 Testing Laboratory Results 01/08/25 04:34 01/10/25 06:54 Urine Color Yellow 01/07/25 22:12 Urine Appearance Clear (Clear) 01/07/25 22:12 Urine pH 7.0 (4.5-7.5) 01/07/25 22:12 Ur Specific [place] 1.012 (1.000-1.030) 01/07/25 22:12 Urine Protein Negative (Negative) 01/07/25 22:12 Urine Glucose (UA) Negative (Negative) 01/07/25 22:12 Urine Ketones Negative (Negative) 01/07/25 22:12 Urine Nitrite Negative (Negative) 01/07/25 22:12 Ur Leukocyte Esterase 2+ (Negative) H 01/07/25 22:12 Urine WBC (Auto) 21-50 /hpf (0-5) H 01/07/25 22:12 Urine RBC (Auto) 0-2 /hpf (0-2) 01/07/25 22:12 U Hyaline Cast (Auto) 0-2 /lpf (0-2) 01/07/25 22:12 U Epithel Cells (Auto) 0-2 /hpf (0-2) 01/07/25 22:12 Urine Bacteria (Auto) None Seen (None Seen) 01/07/25 22:12 01/07/25 22:12 Urine Culture - Final Urine,Clean Catch No growth - less than 1,000 colonies/mL. 01/09/25 06:02 Aerobic Blood Culture - Preliminary Blood No growth in Aerobic bottle after 24 hours. 01/09/25 05:53 Aerobic Blood Culture - Preliminary Blood No growth in Aerobic bottle after 24 hours. Anaerobic Blood Culture - Preliminary No growth in Anaerobic bottle after 24 hours. 01/07/25 16:50 Aerobic Blood Culture - Preliminary Blood No growth in Aerobic bottle after 48 hours. Anaerobic Blood Culture - Preliminary No growth in Anaerobic bottle after 48 hours. 01/07/25 16:38 Aerobic Blood Culture - Preliminary Blood No growth in Aerobic bottle after 48 hours. Anaerobic Blood Culture - Preliminary No growth in Anaerobic bottle after 48 hours. Electrocardiogram Date: 01/07/25 Findings: + SB @ (53)
[2025-01-10] MEDS ORDERED: ATROPINE SULFATE 0.1 MG/ML 10ML SYR IV PRN (10:05)
[2025-01-10] MEDS ORDERED: ONDANSETRON INJ 2 MG/ML 2 ML VIAL IV PRN (10:05)
--- NOTE | 2025-01-10 10:06 | Orthopedic Progress Note ---
Date of Service January 10, 2025 Assessment & Plan (1) Right hip joint effusion: * Continue Current Treatment * IR aspiration and fluid analysis pending, formal plan to follow * Abx per ID recommendations * Weight bearing status: as tolerated * Daily treatment: Physical Therapy/ Occupational Therapy per protocol * Pain control * DVT prophylaxis per primary team * Disposition: TBD * Remainder care per primary team Subjective . Active Problems: Right hip pain, effusion 34 y/o male with right hip pain and effusion, bacteremia. IR aspiration pending. Continued right hip pain today. Denies fever/chills, chest pain/SOB, nausea/vomiting. Otherwise no complaints. Review of Systems All systems reviewed & are unremarkable except as noted in HPI & below. Physical Exam Musculoskeletal: Right hip region with well healed surgical incision. No outward sign of infection or wound dehiscence. Otherwise no obvious deformity or overlying skin changes. Diffuse TTP proximal thigh and hip region. Otherwise no specific tenderness of distal thigh, lower leg, foot/ankle. Pain with log roll, otherwise AROM hip limited by pain. AROM foot/ankle intact. Sensation intact plantar/dorsal foot. Brisk capillary refill. Results & Data Results & Data Laboratory Results . Diagnostic Findings . PG Care Time/CCT Total # of Minutes Spent Total Time Spent with Patient: Total time spent is greater than 50% in coordination of care (as documented) at patient's floor/unit and/or counseling patient: Coding Level of Care Code 02708 SUB INP/OBS CARE 2/35MIN Diagnoses Right hip joint effusion M25.451
[2025-01-10] MEDS: LACTATED RINGER'S 1,000 ML IV SCH (10:25)
[2025-01-10] MEDS ORDERED: DexMEDEtomidine HCL IV 100 MCG/ML VIAL IV ONE (10:42)
[2025-01-10] MEDS ORDERED: MIDAZOLAM HCL 1 MG/ML 2ML VIAL ONE (10:45)
[2025-01-10] MEDS ORDERED: KETAMINE HCL 10MG/ML SYR ONE (10:47)
[2025-01-10] MEDS ORDERED: PROPOFOL IV EMULSION 10 MG/ML 20 ML VIAL IV ONE (11:03)
--- NOTE | 2025-01-10 11:26 | Ultrasound Report ---
Ultrasound guided right hip fluid collection aspiration INDICATION: Bacteremia; right hip fluid collection PROCEDURE: Procedure and risks were explained. Informed consent was obtained. A final timeout was com pleted. The right hip was prepped and draped in sterile fashion. 1% lidocaine was utilized for skin a nesthesia. The patient received monitored anesthesia care during the procedure. Utilizing ultrasound guidance, a 5 [place] safety centesis catheter was advanced into the right hip fl uid collection. Ultrasound images were obtained. Approximately 50 mL of a cloudy bloody fluid was asp irated and sent to lab for culture analysis. The catheter was removed and Band-Aid applied. The patie nt tolerated the procedure well. Vital signs will be monitored per anesthesia protocol. IMPRESSION: Ultrasound-guided right hip fluid collection aspiration as above. Performed, dictated, and signed by Danny Bennett PA-C; to be co-signed by Dr. Francois Almanzar. Electronically signed by: Francois Almanzar M.D. 01/10/2025 11:57 AM
--- NOTE | 2025-01-10 12:05 | Anesthesiology Progress Note ---
Date of Service January 10, 2025 Anesthesia Post Procedure Vital Signs Vital Signs: Temp Pulse Pulse Resp BP Pulse Ox O2 Del Method 01/10/25 12:00 56 L 14 90/60 L 95 Room Air 01/10/25 11:45 62 12 93/66 L 96 Room Air 01/10/25 11:35 36.5 C 60 14 93/55 L 99 Room Air 01/10/25 11:25 56 L 12 99/60 L 97 Oxymask 01/10/25 11:19 36.3 C L 56 L 18 94/60 L 98 Oxymask 01/10/25 10:15 37.3 C 62 18 120/69 99 Room Air 01/10/25 09:58 36.6 C 62 18 108/67 97 Room Air 01/10/25 09:00 Room Air 01/10/25 07:45 36.3 C L 60 18 98/62 L 94 Room Air 01/09/25 23:11 36.8 C 68 18 107/67 95 Room Air 01/09/25 15:10 36.3 C L 50 L 18 128/63 100 Room Air O2 Flow Rate 01/10/25 12:00 01/10/25 11:45 01/10/25 11:35 01/10/25 11:25 3 01/10/25 11:19 6 01/10/25 10:15 01/10/25 09:58 01/10/25 09:00 01/10/25 07:45 01/09/25 23:11 01/09/25 15:10 Transfer of Care Handoff Completed per policy Notes Mental Status: alert / awake / arousable Patient Amnestic to Procedure: Yes Nausea / Vomiting: adequately controlled Pain: adequately controlled Airway Patency, RR, SpO2: stable & adequate BP & HR: stable & adequate Hydration State: stable & adequate Anesthetic Complications: no major complications apparent and Pt Satisfied with anesthetic care
[2025-01-10 12:53] LABS: Color Synovial Fluid Red; Mononuclear WBC Synovial 46.5 %; Polynuclear WBC Synovial 53.5 %; RBC Synovial Fluid Auto 600000 /uL; Source Synovial Fluid Right Hip; WBC Synovial Fluid Auto 525 /ul (0-200)
--- NOTE | 2025-01-10 14:19 | Hospitalist Progress Note ---
Date of Service January 10, 2025 Assessment & Plan (1) Bacteremia: Plan: Blood cultures obtained January 04 were positive for micrococcus. He is now on intravenous vancomycin day 4. Blood cultures obtained January 07 are negative and they were repeated again on January 09 which remain negative to date. Infectious disease consultation appreciated. Transthoracic echo has been ordered to rule out endocarditis and is pending. (2) Right hip joint effusion: Plan: Aspiration of the right hip joint was completed today, January 10. Sanguinous fluid reveals a considerable number of red blood cells and white blood cells. Culture is pending. He has a history of prior infection of the right hip and previous surgical intervention at an outside hospital. (3) HIV (human immunodeficiency virus infection): Plan: By history. CD4 level is low as expected (4) HCV (hepatitis C virus): Plan: By history. No active intervention at this time (5) Anxiety with agitation: Plan: Xanax as needed dosage has been uptitrated to every 4 hours. (6) Drug abuse and dependence: Plan: By history. Supportive care (7) Polysubstance abuse: Plan: By history. Supportive care (8) Tobacco dependence: Plan: Topical nicotine patch as needed Plan Await right hip aspiration culture results. Continue intravenous vancomycin for now. Hopefully he will not require a right hip washout procedure Admission and Anticipated Discharge Date Admission Date: January 07, 2025 Subjective The patient was seen after he underwent aspiration of the right hip. Sanguinous fluid evaluation reveals a significant number of red blood cells and white blood cells. Cultures are pending. He remains on intravenous vancomycin, day 3. Suboxone dosage was increased in frequency to help control his right hip pain. CD4 cell counts are low as expected. Appreciate infectious disease consultation recommendations. Transthoracic echo has been ordered and is pending. Review of Systems 2 Review of Systems: Constitutionalno fever or chills ENTno blurred vision, no double vision, no epistaxis, no sore throat Respiratoryno cough, no wheezing, no shortness of breath Cardiacno palpitations, no chest pain, no syncope Jacinto nausea, vomiting, diarrhea, melena, hematochezia GUno urinary retention, no urinary incontinence, no dysuria, no hematuria Musculoskeletalcomplaining of severe right hip pain. No muscle tenderness Skinno bruising, no rashes, no pruritus Neurono isolated weakness, no paresthesia, no weakness Psychanxiety is problematic. Currently treated with Xanax Physical Exam 2 Physical Exam: General-alert and oriented x3, no fever, no chills HEENT-head atraumatic and normocephalic, pupils equal and reactive to light, extraocular muscles intact Neck-no lymphadenopathy or thyromegaly, trachea midline Chest-clear to auscultation. No rales, wheezing or rhonchi Cardiac-regular rate and rhythm, normal S1 and S2 Abdomen-normal bowel sounds, no hepatosplenomegaly Extremities-no cyanosis, clubbing, or edema. No overt signs of right hip infection Neuro-cranial nerves II through XII intact, motor and sensory function within normal limits, strength symmetrical, no focal deficits Psych-anxious. Results & Data Results & Data Vital Signs (Past 12 Hours) Vital Signs Temp Pulse Pulse Resp BP Pulse Ox O2 Del Method 01/10/25 13:01 36.4 C L 58 L 18 114/80 99 Room Air 01/10/25 12:10 54 L 14 92/60 L 95 Room Air 01/10/25 12:00 56 L 14 90/60 L 95 Room Air 01/10/25 11:45 62 12 93/66 L 96 Room Air 01/10/25 11:35 36.5 C 60 14 93/55 L 99 Room Air 01/10/25 11:25 56 L 12 99/60 L 97 Oxymask 01/10/25 11:19 36.3 C L 56 L 18 94/60 L 98 Oxymask 01/10/25 10:15 37.3 C 62 18 120/69 99 Room Air 01/10/25 09:58 36.6 C 62 18 108/67 97 Room Air 01/10/25 09:00 Room Air 01/10/25 07:45 36.3 C L 60 18 98/62 L 94 Room Air O2 Flow Rate 01/10/25 13:01 01/10/25 12:10 01/10/25 12:00 01/10/25 11:45 01/10/25 11:35 01/10/25 11:25 3 01/10/25 11:19 6 01/10/25 10:15 01/10/25 09:58 01/10/25 09:00 01/10/25 07:45 Laboratory Results 01/08/25 04:34 01/10/25 06:54 PG Care Time/CCT Total # of Minutes Spent Total Time Spent with Patient: Total time spent is greater than 50% in coordination of care (as documented) at patient's floor/unit and/or counseling patient: Coding Level of Care Code 68224 SUB INP/OBS CARE 3/50MIN Diagnoses Bacteremia R78.81 Right hip joint effusion M25.451 HIV (human immunodeficiency virus infection) B20 HCV (hepatitis C virus) B19.20 Anxiety with agitation F41.9; R45.1 Drug abuse and dependence F19.20 Polysubstance abuse F19.10 Tobacco dependence F17.200
[2025-01-10] MEDS: BUPRENORPHINE/NALOXONE 8/2 MG TAB SL SCH (14:28)
[2025-01-10] MEDS: BUPRENORPHINE/NALOXONE 8/2 MG TAB SL STA (14:40)
[2025-01-10] MEDS ORDERED: Nursing to Pharmacy Communication SCH (17:45)
[2025-01-10] MEDS: MoRPHine SULFATE 2 MG/ML CARP IV STA (20:34)
[2025-01-10] MEDS ORDERED: BUPRENORPHINE/NALOXONE 8/2 MG TAB SL SCH (21:00)
[2025-01-11] MEDS: BUPRENORPHINE/NALOXONE 8/2 MG TAB SL STA (10:01)
[2025-01-11 11:23] LABS: Hepatitis C Vira RNA (Log) PCR <1.18 NOT DETECTED Log IU/mL (NOT DETECTED)
--- NOTE | 2025-01-11 11:28 | Infectious Disease Progress Nt ---
Date of Service January 11, 2025 Assessment & Plan (1) Polysubstance abuse: (2) Right hip joint effusion: (3) Bacteremia: Plan This is a 34-year-old man with a past medical history of HIV on Biktarvy, hep C status posttreatment, R hip septic arthritis sp Surgery times 2 ([facility]), anxiety, ADHD, polysubstance abuse (heroin, methamphetamine, cocaine in the past) on Suboxone, vaping associated lung injury who was recently admitted 01/04 - 01/06 status post a fall, tremors. At that time reported nausea and vomiting,lower extremity fasciculations and felt that his legs gave out on him. He was also noted to be agitated and delusional with hallucinations. There was concern he may be withdrawing from benzodiazepines. He was offered Ativan during the hospitalization but requested Xanax instead. He had a psychiatric evaluation and it thought that he may be withdrawing from Wellbutrin and gabapentin, which had been crushing and snorting CT head neck, MRI head, EEG were negative. Patient did not meet grounds for 302/involuntary commitment as he had no active suicidal or homicidal ideations. He was discharged. He was asked to return to the ED on 01/07 for positive blood cultures. Blood cultures grew micrococcus luteus. On admission he complained of acute on chronic right hip pain. He denied fever, chills, nausea, vomiting. In the ED he was afebrile and hemodynamically stable. Labs: WBC 5.3, BUN 9, creatinine 0.97, CD4 440 (01/04/2025). Chest x-ray normal. Right hip CT shows postoperative disarticulation of the right hip which is stable. Large amount of inflammatory change and fluid within the right hip joint space. MRI lumbar thoracic spine shows disc bulge at L5-S1 intervertebral's disc. No other evidence of discitis. He was evaluated by orthopedic surgery who recommended IR aspiration with synovial fluid analysis and culture. If fluid results c/f infection , they plan to proceed with washout in OR. He is currently receiving IV vancomycin. Infectious disease consulted for bacteremia Microbiology 01/07 blood cultures NGTD 01/09 NGTD 01/07 urine culture < 1K 01/08 HIV RNA pending 01/08 HCV RNA 01/08 not detected 01/10 synovial fluid bloody, 600,000 RBC, 525 WBC, 53% polynuclear cells, 46% mononuclear cells 01/10 fluid culture ( bacterial): No org seen on g/s, rare WBC, Cx NGTD 01/10 fluid culture ( fungal); no yeast or hyphae, cx Pending Prior microbiology 01/04 2/4 bottles Micrococcus luteus Antibiotics Vancomycin urrent # Micrococcus luteus bacteremia # Right hip joint effusion and acute on chronic pain # History of R septic joint, ? subsequent PJI with explantation and girdlestone procedure # HIV, on Biktarvy # Hepatitis C infection, status posttreatment # History of polysubstance abuse Discussion: He is immunocompromised with HIV; CD4 count greater than 400 on Biktarvy. Found to have a micrococcus bacteremia of unknown etiology. This is a skin organism and is usually considered a contaminant however in the setting of his immunocompromise state and right hip effusion this may represent a true pathogen. Source of bacteremia may be secondary to right hip joint infection. Insettingof ploysubstance abuse, although he denies recent illicit dug use, endocarditis should be ruled out as well. He has a history of a right hip septic arthritis and reports that he underwent a hip replacement that subsequently got infected (not verified). Prosthetic was eventually explanted and he appears to have underwent a Girdlestone procedure [facility]. He is not able to tell me when the procedures were done. In the last month he has developed acute on chronic right hip joint pain. on 01/10 underwent joint aspiration with IR- prelim fluid analysis --> fluid bloody, 600,000 RBC, 525 WBC, 53% polynuclear cells, 46% mononuclear cell. Cx NGTD. No plans for washout per ortho. Recommendations Continue IV vancomycin per pharmacy protocol follow-up repeat blood cultures Follow transthoracic echocardiogram Follow-up synovial fluid cx Follow-up HIV viral load ID will continue to follow. Kimberly Alvarez MD, MPH Infectious Disease [facility], [facility] Call [phone] with questions Admission and Anticipated Discharge Date Admission Date: January 07, 2025 Subjective Subsequent visit was provided via telemedicine using two-way real-time interactive telecommunication between the patient and the telemedicine provider. For the duration of the visit, the provider was performing the assessment from a different facility than the patient. This includesuse of bluetooth stethoscope forauscultationperformed by the telepresenter that the telemedicine provider can hear if described in the physical exam. Tax Collection Coordinator contact information: Please call [facility] Call Center . (Phone Number For Physician Use Only) After establishing a telemedicine visit, patient was: Patient was verified with two unique identifiers and Gave permission to continue telehealth session Time Spent with Patient: Subsequent => 25 min He is status post aspiration of joint fluid with IR. Initial fluid study shows 525 WBCs Gram stain negative cultures pending. Many RBCs noted. He is pending echocardiogram. He remains afebrile. Requesting pain medication. Given fluid findings no plans for washout per Ortho Physical Exam Physical Exam: NAD Supple neck Non labored breathing, On RA Soft abdomen, not tender Right hip healed surgical incision. Tender, + edema. Not warm or erythematous NO LE edema AAO times 3 Labile mood, occasionally agitated Results & Data Vital Signs (Past 12 Hours) Vital Signs Temp Pulse Resp BP Pulse Ox O2 Del Method 01/11/25 08:17 36.6 C 72 18 103/66 96 Room Air 01/11/25 07:15 Room Air
[2025-01-11 11:58] LABS: Hematocrit (blood only) 37.1 % (42.0-52.0); Hemoglobin 12.3 g/dl (14.0-18.0); Immature Granulocytes # (auto) 0.01 K/uL (0.01-0.20); Immature Granulocytes % (auto) 0.2 %; Mean Corpuscular Hemoglobin 28.9 pg (25.0-34.0); Mean Corpuscular Volume 87.3 fL (80.0-100.0); Platelet Count 220 K/uL (130-400); RDW Standard Deviation 38.9 fL (36.4-46.3); Red Blood Count 4.25 M/uL (4.70-6.10); White Blood Count 4.96 K/ul (4.8-10.8)
--- NOTE | 2025-01-11 11:59 | Orthopedic Progress Note ---
Date of Service January 11, 2025 Assessment & Plan (1) Right hip joint effusion: * Continue Current Treatment * IR aspiration 01/10 * WBC 525, gram (-), culture pending * Repeat blood cultures negative * Abx per ID recommendations * Weight bearing status: as tolerated * Daily treatment: Physical Therapy/ Occupational Therapy per protocol * Pain control * DVT prophylaxis per primary team * Disposition: TBD * Will continue to monitor fluid results. No plan for washout at this time. Dr Park updated with aspiration findings. Subjective Active Problems: Right hip pain, effusion 34 y/o male with right hip pain and effusion, bacteremia. IR aspiration complete, initial analysis WBC 525, gram stain (-), culture pending. Continued right hip pain today. Denies fever/chills, chest pain/SOB, nausea/vomiting. Otherwise no complaints. Review of Systems All systems reviewed & are unremarkable except as noted in HPI & below. Physical Exam Musculoskeletal: Right hip region with well healed surgical incision. No outward sign of infection or wound dehiscence. Otherwise no obvious deformity or overlying skin changes. Diffuse TTP proximal thigh and hip region. Otherwise no specific tenderness of distal thigh, lower leg, foot/ankle. Pain with log roll, otherwise AROM hip limited by pain. AROM foot/ankle intact. Sensation intact plantar/dorsal foot. Brisk capillary refill. Results & Data Results & Data Laboratory Results . Diagnostic Findings . PG Care Time/CCT Total # of Minutes Spent Total Time Spent with Patient: Total time spent is greater than 50% in coordination of care (as documented) at patient's floor/unit and/or counseling patient: Coding Level of Care Code 05929 SUB INP/OBS CARE 2/35MIN Diagnoses Right hip joint effusion M25.451
[2025-01-11 12:03] LABS: Anion Gap 6.0 (3-11); Blood Urea Nitrogen 11.0 mg/dl (6-23); Calcium 9.1 mg/dl (8.6-10.3); Carbon Dioxide 28.0 mmol/L (21-32); Chloride 107.0 mmol/L (98-107); Creatinine Clr Calc Pharmacy 114.0 ml/min; Glucose 83.0 mg/dl (70-99(Fasting)); Potassium 4.0 mmol/L (3.5-5.1); Sodium 141.0 mmol/L (136-145)
--- NOTE | 2025-01-11 12:08 | XCELERA ---
[id number]
[2025-01-11] MEDS: BUPRENORPHINE/NALOXONE 8/2 MG TAB SL SCH (13:18)
--- NOTE | 2025-01-11 17:17 | Hospitalist Progress Note ---
Date of Service January 11, 2025 Assessment & Plan (1) Bacteremia: Plan: Blood cultures obtained January 04 were positive for micrococcus. He is now on intravenous vancomycin day 5. Blood cultures obtained January 07 are negative and they were repeated again on January 09 which remain negative. Infectious disease consultation appreciated. Transthoracic echo has been ordered to rule out endocarditis and is pending. (2) Right hip joint effusion: Plan: Aspiration of the right hip joint was completed today, January 10. Sanguinous fluid reveals a considerable number of red blood cells and white blood cells. Culture is negative to date. Gram stain is negative. He has a history of prior infection of the right hip and previous surgical intervention at an outside hospital. (3) HIV (human immunodeficiency virus infection): Plan: By history. CD4 level is low as expected (4) HCV (hepatitis C virus): Plan: By history. No active intervention at this time (5) Anxiety with agitation: Plan: Xanax is now scheduled and he is receiving high dose 2 mg 3 times a day on a scheduled basis. He refuses addition of hydroxyzine. (6) Drug abuse and dependence: Plan: By history. Supportive care. He is not a candidate for PICC line or midline placement for IV access. (7) Polysubstance abuse: Plan: By history. Supportive care (8) Tobacco dependence: Plan: Topical nicotine patch as needed Plan Hopefully he can go home within the next day or 2 on an oral antibiotic. Continue intravenous vancomycin for now. Admission and Anticipated Discharge Date Admission Date: January 07, 2025 Subjective Alert and oriented. He is concerned about his anxiety which he says is not very well-controlled. He also states his hip pain is uncontrolled but symptoms seem to outweigh physical findings. Suboxone has been uptitrated and a fentanyl patch applied but am not sure how much the fentanyl patch will help with pain control. Xanax dosage has been uptitrated again. Cardiac echo report is pending. He remains on intravenous vancomycin, day 5. Infectious disease entry noted. Fortunately the right hip aspiration culture remains negative to date and the repeat blood cultures on January 09 remain negative. Gram stain from the right hip aspirate done on January 10 was negative. Hopefully he can go home on an oral antibiotic within the next day or 2 Review of Systems 2 Review of Systems: Constitutionalno fever or chills ENTno blurred vision, no double vision, no epistaxis, no sore throat Respiratoryno cough, no wheezing, no shortness of breath Cardiacno palpitations, no chest pain, no syncope Jacinto nausea, vomiting, diarrhea, melena, hematochezia GUno urinary retention, no urinary incontinence, no dysuria, no hematuria Musculoskeletalcomplaining of severe right hip pain. No muscle tenderness Skinno bruising, no rashes, no pruritus Neurono isolated weakness, no paresthesia, no weakness Psychanxiety is problematic. Currently treated with Xanax Physical Exam 2 Physical Exam: General-alert and oriented x3, no fever, no chills HEENT-head atraumatic and normocephalic, pupils equal and reactive to light, extraocular muscles intact Neck-no lymphadenopathy or thyromegaly, trachea midline Chest-clear to auscultation. No rales, wheezing or rhonchi Cardiac-regular rate and rhythm, normal S1 and S2 Abdomen-normal bowel sounds, no hepatosplenomegaly Extremities-no cyanosis, clubbing, or edema. No overt signs of right hip infection Neuro-cranial nerves II through XII intact, motor and sensory function within normal limits, strength symmetrical, no focal deficits Psych-anxious. Results & Data Results & Data Vital Signs (Past 12 Hours) Vital Signs Temp Pulse Resp BP Pulse Ox O2 Del Method 01/11/25 08:17 36.6 C 72 18 103/66 96 Room Air 01/11/25 07:15 Room Air Laboratory Results 01/11/25 10:38 01/11/25 10:38 PG Care Time/CCT Total # of Minutes Spent Total Time Spent with Patient: Total time spent is greater than 50% in coordination of care (as documented) at patient's floor/unit and/or counseling patient: Coding Level of Care Code 67201 SUB INP/OBS CARE 3/50MIN Diagnoses Bacteremia R78.81 Right hip joint effusion M25.451 HIV (human immunodeficiency virus infection) B20 HCV (hepatitis C virus) B19.20 Anxiety with agitation F41.9; R45.1 Drug abuse and dependence F19.20 Polysubstance abuse F19.10 Tobacco dependence F17.200
[2025-01-11 23:37] VITALS: RESP 16; TEMP 97.5
[2025-01-12] MEDS: MoRPHine SULFATE 4 MG/ML 1 ML CARP\\VIAL IV STA (01:08)
[2025-01-12 05:52] LABS: Hematocrit (blood only) 36.0 % (42.0-52.0); Hemoglobin 12.4 g/dl (14.0-18.0); Immature Granulocytes # (auto) 0.02 K/uL (0.01-0.20); Immature Granulocytes % (auto) 0.4 %; Mean Corpuscular Hemoglobin 29.8 pg (25.0-34.0); Mean Corpuscular Volume 86.5 fL (80.0-100.0); Platelet Count 202 K/uL (130-400); RDW Standard Deviation 38.9 fL (36.4-46.3); Red Blood Count 4.16 M/uL (4.70-6.10); White Blood Count 4.54 K/ul (4.8-10.8)
[2025-01-12 06:05] LABS: Anion Gap 4.0 (3-11); Blood Urea Nitrogen 14.0 mg/dl (6-23); Calcium 8.9 mg/dl (8.6-10.3); Carbon Dioxide 29.0 mmol/L (21-32); Chloride 107.0 mmol/L (98-107); Creatinine Clr Calc Pharmacy 120.9 ml/min; Glucose 98.0 mg/dl (70-99(Fasting)); Potassium 3.9 mmol/L (3.5-5.1); Sodium 140.0 mmol/L (136-145)
[2025-01-12] MEDS: VANCOMYCIN LEVEL ONE (06:05)
[2025-01-12 08:18] VITALS: O2SAT 94
[2025-01-12] MEDS: ONDANSETRON INJ 2 MG/ML 2 ML VIAL IV PRN (09:45)
[2025-01-12 12:52] LABS: HIV 1 RNA PCR Copies/ML NOT DETECTED copies/mL (NOT DETECTED)
--- NOTE | 2025-01-12 13:19 | Discharge Summary ---
Discharge Summary Date of Service January 12, 2025 Principal Dx & Hospital Course #1 = Principal Diagnosis (1) Bacteremia: Blood cultures obtained January 04 were positive for micrococcus. He was treated while hospitalized with intravenous vancomycin. Blood cultures obtained January 07 are negative and they were repeated again on January 09 which remain negative. Infectious disease consultation appreciated. Transthoracic echo has been ordered to rule out endocarditis and is pending. (2) Right hip joint effusion: Aspiration of the right hip joint was completed on January 10. Sanguinous fluid reveals a considerable number of red blood cells and white blood cells. Culture remains negative. Gram stain is negative. He has a history of prior infection of the right hip and previous surgical intervention at an outside hospital. He will remain on oral Augmentin for 10 more days at discharge (3) HIV (human immunodeficiency virus infection): By history. CD4 level is low as expected (4) HCV (hepatitis C virus): By history. No active intervention at this time (5) Anxiety with agitation: Xanax is now scheduled and he is receiving high dose 2 mg 3 times a day on a scheduled basis. He refuses addition of hydroxyzine. (6) Drug abuse and dependence: By history. Supportive care. He is not a candidate for PICC line or midline placement for IV access. (7) Polysubstance abuse: By history. Supportive care (8) Tobacco dependence: Topical nicotine patch as needed while hospitalized Plan From today, January 12. Continue Augmentin 875 mg twice daily for 10 more days. Follow-up with primary care provider soon as possible Admission HPI Per Admitting Provider 34yo male with HIV, HepC infection, polysubstance abuse (h/o heroin, metha mphetamine, cocaine, tobacco), ADHD, anxiety, vaping associated lung injury, and ?right hip infection s/p right hip surgery x 2 at [facility]. He presented to the [facility] ER on 01/04 with a fall, nausea, vomiting, tremors/shakiness, weakness of his legs, confusion, and head injury. He was admitted to the hospital and underwent an extensive work-up including CT head/neck, MRI Brain, EEG, and had psychiatric consultation. He was noted to be delusional and hallucinating, and there was concern that perhaps he was withdrawing from benzodiazepines (xanax). He was offered ativan during the hospital stay but requested xanax instead. It was later determined that he had been snorting wellbutrin & gabapentin. His mental status improved during the brief stay and he was d/c on 01/06/25. Shortly after his discharge on 01/06/25 his blood cultures from the recent hospital stay turned positive for micrococcus. He was contacted at home and asked to return to the hospital for IV antibiotic therapy. Indeed he returned to the [facility] ER for treatment. During my assessment he was quite sleepy as he had received droperidol 2.5mg IV x 1. However, multiple times he asked for "something for anxiety" and that he was "restless." He was able to tell me he "was feeling warm" the last few days but a review of his 01/05-01/06 hospitalization showed no documented fevers. He also complained of right hip pain for "about a year" but much worse of late. I noted that he had a 2 inch leg-length discrepancy (right leg shorter than left) and he said "I had 2 surgeries on the hip at [place]." Other than the above he was unable to give additional history due to sleepiness. By report the ER pharmacy discussed his case with infectious disease extensively and IV vancomycin was advised for the micrococcus. ID also advised repeat blood cultures & echo. Discharge Exam General-alert and oriented x3, no fever, no chills HEENT-head atraumatic and normocephalic, pupils equal and reactive to light, extraocular muscles intact Neck-no lymphadenopathy or thyromegaly, trachea midline Chest-clear to auscultation. No rales, wheezing or rhonchi Cardiac-regular rate and rhythm, normal S1 and S2 Abdomen-normal bowel sounds, no hepatosplenomegaly Extremities-no cyanosis, clubbing, or edema. No overt signs of right hip infection Neuro-cranial nerves II through XII intact, motor and sensory function within normal limits, strength symmetrical, no focal deficits Psych-anxious. Discharge Plan Discharge Items Patient Disposition: Home - Self-Care Reason For Visit: MICROCOCCUS BACTEREMIA Discharge Diagnosis: Micrococcus bacteremia, chronic right hip pain, anxiety disorder Condition on Discharge: Fair Activity: Resume your previous activity Non-emergency contact: Primary Care Provider Call non-emergency contact if: your symptoms worsen Follow-up/Referrals: PCP,NO [Primary Care Provider] - Diet: Regular Addtl Attending Provider Instructions: Take Augmentin (amoxicillin/clavulanate) twice daily for 10 days. Take Xanax 3 times daily for anxiety. [facility] See primary care provider within 1 week or as soon as possible for follow-up Pending Studies at Discharge: No Stand-Alone Forms: My [facility], Smoking Cessation Medications and DC Order Prescriptions: New alprazolam [Xanax] 2 mg tablet 2 mg PO TID Qty: 30 0RF amoxicillin-pot clavulanate 875-125 mg tablet 1 tab PO BID Qty: 20 0RF Continued Biktarvy 50-200-25 mg tablet 1 tab PO DAILY Qty: 90 3RF Rx Instructions: PER PT "NOT REGULARLY" LAST FILLED 11/21/24 FOR 30 TABS/30 DAYS. Sublocade 300 mg/1.5 mL solution, extended rel syringe 300 mg SUBCUT MONTHLY Rx Instructions: LAST FILLED 12/08/24 PER EXT MED HX. aripiprazole [Abilify] 5 mg tablet 5 mg PO HS 7 Days Qty: 7 0RF buprenorphine-naloxone 8-2 mg film 0.5 - 1 film sublingual DIRECTED PRN (Reason: NEEDED) gabapentin 800 mg tablet 800 mg PO TID Discharge Orders: Discharge Order (Routine); Ordered 01/12/25 Ordered By: José Antonio Ray Admission Data Admit Date/Time: 01/07/25 18:53 Attending Provider: José Antonio Ray Admit Provider: Maurilio Jeffers Primary Care Provider: PCP,NO Other Providers: Aurelia Jason; Yaritza Sal; Makenzie Beyer; Kimberly Alvarez; Arminda Vera; Marcia Castillo; Collins Villa; Femi Tao; Shane Kevin Hospital Stay Data Consultations 01/07/25 18:53 Consult Infectious Diseases Routine 01/07/25 19:11 ED Decision to Admit Stat 01/09/25 08:00 Consult Orthopedic Surgery Routine 01/09/25 11:45 Consult Anesthesiology Routine Procedures Performed Operation Date: 01/10/25 11:00 Actual Procedures p Hip Aspiration with Ultrasound, Anesthesia Sedation(Right) - Danny Bennett PA-C Diagnostic Imagining Performed 01/07/25 19:06 CT hip RT wo con Stat 01/08/25 17:22 MR lumbar spine wo/w con Routine MR thoracic spine wo/w con Routine 01/10/25 07:00 IR aspinj mjr jnt sh,hip,kn RT Routine Pending Results Patient Have Any Pending Studies at Discharge: No Discharge Instructions Given to Patient (Per Discharging Provider) Take Augmentin (amoxicillin/clavulanate) twice daily for 10 days. Take Xanax 3 times daily for anxiety. [facility] See primary care provider within 1 week or as soon as possible for follow-up Total Time Total Time Spent Total Time Spent (In Minutes): 45 minutes Coding Level of Care Code 03022 INP/OBS DISCH >30 MIN Diagnoses Bacteremia R78.81 Right hip joint effusion M25.451 HIV (human immunodeficiency virus infection) B20 HCV (hepatitis C virus) B19.20 Anxiety with agitation F41.9; R45.1 Drug abuse and dependence F19.20 Polysubstance abuse F19.10 Tobacco dependence F17.200
[2025-01-12 14:15] VITALS: BP 124/79; PULSE 72
== END 2025-01-12 15:22 | disposition home or self-care (01) | DRG 975 ==
LOC: ED 16:18 → SUATTDRO 18:53 → EDINP 18:53 → 3N 01-08 20:35